=== PATIENT | female | born 1990 | race Caucasian/White ===

== ENCOUNTER 2019-04-01 02:03 | Day surgery (SDC) | payer OTHER, SELFPAY ==
[2019-03-31 12:27] VITALS: BMI 33.0
[2019-04-01 10:20] VITALS: BP 114/60; PULSE 71; RESP 16; TEMP 36.4; O2SAT 100; BMI 32.5
[2019-04-01] MEDS: LACTATED RINGERS 1,000 ML 150 ML IV CONT (10:33)
--- NOTE | 2019-04-01 10:41 | WPDANESEPPF ---
Anes - Initial Pre Proc Eval Procedure: Operation Date: 04/01/19 10:30 Proposed Procedures p Screening Colonoscopy - Norman Garrido MD Date/Time: 04/01/19 10:41 Surgeon: Norman Garrido MD Pre Op Diagnosis: Fam Hx Colon Ca Patient Data Age: 28 Gender: F Height: 5 ft 5 in Weight: 88.9 kg Last Vital Signs Temp 36.4 C L 04/01/19 10:20 Pulse 71 04/01/19 10:20 Resp 16 04/01/19 10:20 BP 114/60 04/01/19 10:20 Pulse Ox 100 04/01/19 10:20 Allergies Allergy/AdvReac Type Severity Reaction Status Date / Time No Known Allergies Allergy Unverified 04/01/19 10:18 Home Medications Medication Instructions Recorded Confirmed Type buspirone 10 mg tablet 10 mg PO BID #60 tablet 12/26/18 03/31/19 Rx clonazepam 0.5 mg tablet 0.5 mg PO BID PRN #60 tablet 12/26/18 03/31/19 Rx dextroamphetamine-amphetamine 20 20 mg PO BID #60 tablet 03/11/19 03/31/19 Rx mg tablet Patient hx anesthesia problems: none Family hx anesthesia problems: none PMFSH Past Medical History Medical History Smoker Family History Family History Father Carcinoma of colon Mother Hypertension Family history of type 2 diabetes mellitus Social History Social History Alcohol intake: current Anes - Eval Final PreProcedure Day of Procedure 04/01/19 10:41 Patient weight: obese Heart: regular rate and rhythm Lungs: clear to auscultation Airway: Mallampati scale class II Neurological: alert and oriented Last oral intake: >/= 8 hours ASA classification: II Emergent: no Anesthetic plan: proceed Anesthesia type and monitoring: general GIVS and standard monitoring Informed Consent: The patient's anesthetic plan and its attendant risks and benefits were discussed with the patient/family/POA. Questions were solicited and answers provided to the satisfaction of the patient/family/POA.
--- NOTE | 2019-04-01 11:14 | PM.HPGS ---
History of Present Illness History of Present Illness Consent: Risks, benefits, and alternatives have been discussed and questions answered. Patient agrees to proceed with procedure. Chief complaint: Fam Hx Colon Ca Narrative: Usha Orellana is a 28 year old female with colon polyps and father with colon cancer Review of Systems Constitutional: Constitutional: Denies headache(s) and Denies weakness Eyes: Eyes: Denies blurry vision ENT: Reports Normal hearing present, Denies headache(s) and Denies neck pain Cardiovascular: Cardiovascular: Denies chest pain and Denies dyspnea Respiratory: Respiratory: Denies dyspnea Gastrointestinal: Gastrointestinal: Reports no additional gastrointestinal complaints Genitourinary: Genitourinary: Denies dysuria Musculoskeletal: Musculoskeletal: Denies neck pain Integumentary/Breasts: Skin/Breast: Denies dry skin Neurologic: Reports Normal hearing present, Denies headache(s) and Denies weakness Psychiatric: Psychiatric: Denies anxiety Endocrine: Endocrine: Denies change in body appearance Hematologic/Lymphatic: Hematologic/Lymphatic: Denies easy bleeding Allergic/Immunologic: Allergic/Immunologic: Denies urticaria PMFSH Family History Family History Father Carcinoma of colon Mother Hypertension Family history of type 2 diabetes mellitus Social History Social History Alcohol intake: current Meds Home Medications and Allergies Home Medications Medication Instructions Recorded Confirmed Type buspirone 10 mg tablet 10 mg PO BID #60 tablet 12/26/18 03/31/19 Rx clonazepam 0.5 mg tablet 0.5 mg PO BID PRN #60 tablet 12/26/18 03/31/19 Rx dextroamphetamine-amphetamine 20 20 mg PO BID #60 tablet 03/11/19 03/31/19 Rx mg tablet Allergies Allergy/AdvReac Type Severity Reaction Status Date / Time No Known Allergies Allergy Unverified 04/01/19 10:18 Vital Signs Vital Signs - 24 hr 04/01/19 10:20 Temperature 97.5 F L Pulse Rate 71 Respiratory Rate 16 Blood Pressure 114/60 Pulse Oximetry 100 Exam Const: General: comfortable and no acute distress HENMT: General nose exam: Normal nares present Eyes: General: appearance normal, both eyes and all related structures Neck: Neck: no JVD Resp: Auscultation: clear to auscultation bilaterally Cardio: Rate: regular rate Rhythm: regular rhythm GI: Inspection: non-distended GI Palp: Yes Soft to palpation Skin: General skin exam: normal color Neuro: General: gait normal Speech: normal speech Extrem: General: normal to inspection Psych: Mental Status: mental status grossly normal Assessment and Plan Assessment and plan (1) Family history of colon cancer in father: Code(s): Z80.0 - Family history of malignant neoplasm of digestive organs Status: Acute Assessment and Plan: will proceed with colonoscopy
[2019-04-01 11:38] VITALS: BP 95/55; PULSE 79; RESP 24; O2SAT 100
[2019-04-01 11:48] VITALS: BP 113/75; PULSE 67; RESP 20; O2SAT 100
[2019-04-01 11:58] VITALS: BP 113/85; PULSE 72; RESP 16; O2SAT 100
== END 2019-04-01 12:12 | disposition home or self-care (01) ==
PROVIDERS: PCP Family Medicine; Visit Provider Internal Medicine Gastroenterology
PROC: 0DJD8ZZ Inspection of Lower Intestinal Tract, Via Natural or Artificial Opening Endoscopic (ICD-10-PCS; CPT 45378; principal; 2019-04-01 10:30)
DX: Z12.11 Encounter for screening for malignant neoplasm of colon (principal); K63.5 Polyp of colon; K64.8 Other hemorrhoids; Z80.0 Family history of malignant neoplasm of digestive organs; E66.9 Obesity, unspecified; Z68.32 Body mass index [BMI] 32.0-32.9, adult
CPT/HCPCS: 45385; 88305; J2704; J7120

== ENCOUNTER 2019-07-07 15:12 | Outpatient (CLI) | payer OTHER, SELFPAY ==
--- NOTE | ~2019-07-07 | US_ITS ---
EXAMINATION: US pelvic complete w TV DATE: 07/07/2019 15:52 INDICATION: Pelvic pain and pressure TECHNIQUE: Multiple transabdominal and endovaginal sonographic images of the pelvis were obtained. COMPARISON: None. FINDINGS: The uterus measures 7.1 x 4.0 x 5.4 cm. The endometrial complex measures 8 mm. The right ov margoth measures 3.7 x 2.3 x 2.7 cm. The left ovary measures 3.8 x 1.6 x 1.8 cm. There is normal vascular flow in the ovaries. There is no free fluid in the pelvis. IMPRESSION: 1. No sonographic correlate for the patient's symptoms. Reviewed, dictated and finalized at location A.
== END 2019-07-07 15:13 | disposition home or self-care (01) ==
LOC: ANHIMG 15:19
PROVIDERS: PCP Family Medicine; Visit Provider Obstetrics & Gynecology
DX: R10.2 Pelvic and perineal pain (principal)
CPT/HCPCS: 76830; 76856

== ENCOUNTER 2019-08-05 13:33 | Outpatient (CLI) | payer OTHER, SELFPAY | END 2019-08-05 13:34 | disposition home or self-care (01) | PROVIDERS: PCP Family Medicine; Visit Provider Physician Assistant Medical | DX: Z32.01 Encounter for pregnancy test, result positive (principal) | CPT/HCPCS: 36415; 84702 ==

== ENCOUNTER 2019-08-07 07:34 | Outpatient (CLI) | payer OTHER, SELFPAY | END 2019-08-07 07:35 | disposition home or self-care (01) | LOC: ANHLAB 07:36 | PROVIDERS: PCP Family Medicine; Visit Provider Family Medicine | DX: Z32.01 Encounter for pregnancy test, result positive (principal) | CPT/HCPCS: 36415; 84702 ==

== ENCOUNTER 2019-08-07 09:49 | Outpatient (CLI) | payer OTHER, SELFPAY ==
--- NOTE | ~2019-08-07 | US_ITS ---
EXAMINATION: US OB transvaginal DATE: 08/07/2019 10:49 INDICATION: Inappropriate change in quantitative hCG TECHNIQUE: Real-time pelvic transabdominal and transvaginal ultrasound was performed. COMPARISON: 07/07/2019 FINDINGS: The uterus measures 5.4 x 4.7 x 6.5 cm. The endometrial thickness measures 17 mm. There ou r to 4 mm fluid collections in the endometrial canal. Assuming these are gestational sacs, this corre lates with an estimated gestational age of 4 weeks and 6 day(s) (+/-) 3 day(s). The right ovary measures 2.6 x 1.9 x 2.0 cm. The left ovary measures 2.6 x 2.1 x 1.9 cm. There is nor mal vascular flow in the ovaries. There is no free fluid in the pelvis. IMPRESSION: 1. Two 4 mm fluid collections in the endometrial canal which could reflect twin . Assuming t hese are gestational sacs, this would correlate with a gestational age of 4 weeks and 6 day(s) (+/-) 3 day(s) and an estimated delivery date of 04/09/2020. Reviewed, dictated and finalized at location A. IMPRESSION: 1. Two 4 mm fluid collections in the endometrial canal which could reflect twin . Assuming these are gestational sacs, this would correlate with a ge stational age of 4 weeks and 6 day(s) (+/-) 3 day(s) and an estimated delivery date of 04/09/2020.
== END 2019-08-07 09:50 | disposition home or self-care (01) ==
LOC: ANHIMG 09:53
PROVIDERS: PCP Family Medicine; Visit Provider Physician Assistant Medical
DX: O02.81 Inappropriate change in quantitative human chorionic gonadotropin (hCG) in early pregnancy (principal)
CPT/HCPCS: 76817

== ENCOUNTER 2019-09-23 10:27 | Outpatient (CLI) | payer OTHER, SELFPAY ==
[2019-09-23 10:55] LABS: Hematocrit 36.4 % (37.0-47.0); Hemoglobin 12.5 g/dL (12.0-15.0); Mean Corpuscular HGB Conc 34.3 g/dl (32-36); Mean Corpuscular Hemoglobin 30.9 pg (26-34); Mean Corpuscular Volume 90.1 fl (80-100); Mean Platelet Volume 10.3 fl (7.4-10.4); Platelet Count Result 197 k/mm3 (150-375); Red Blood Count 4.04 M/mm3 (4.2-5.4)
[2019-09-23 11:21] LABS: Anion Gap 9.8 mmol/L (7-16); Blood Urea Nitrogen 3 mg/dL (7-17); Calcium 8.9 mg/dL (8.4-10.2); Carbon Dioxide 23 mmol/L (22-30); Chloride 106 mmol/L (98-107); Estimated Glomerular Filt Rate > 60; Glucose 82 mg/dL (65-105); Potassium 3.8 mmol/L (3.4-5.0); Sodium 135 mmol/L (137-145)
== END 2019-09-23 10:28 | disposition home or self-care (01) ==
LOC: ANHLAB 10:30
PROVIDERS: PCP Family Medicine; Visit Provider Nurse Practitioner Family
DX: R50.9 Fever, unspecified (principal)
CPT/HCPCS: 36415; 80048; 85027

== ENCOUNTER → 2019-12-11 08:58 | Outpatient (CLI) | payer OTHER, SELFPAY ==
--- NOTE | ~2019-12-11 | XR_ITS ---
EXAMINATION: XR ankle LT 2V, XR foot LT 2V DATE: 12/11/2019 09:21 INDICATION: Left ankle injury TECHNIQUE: 1. Anteroposterior and lateral view of the left ankle were obtained. 2. Dorsoplantar and lateral views of the left foot were obtained. COMPARISON: None. FINDINGS: Nondisplaced likely intra-articular fracture at the base of the left fifth metatarsal. Alignment steven ins essentially anatomic. No other fractures identified. Moderate osteoarthritis at the first metatar sophalangeal joint with prominent dorsal osteophyte at the head of the metatarsal as well as a loose body at the dorsal side of the joint space which could result in hallux rigidus. Remaining joint spac es appear relatively preserved. Soft tissue swelling about the lateral foot and ankle. Additional sof t tissue swelling about the first metatarsophalangeal joint. Left ankle joint effusion is present. IMPRESSION: 1. Nondisplaced likely intraarticular fracture at the base of the left fifth metatarsal. 2. Prominent left ankle joint effusion. 3. Moderate first metatarsophalangeal osteoarthritis with potential hallux rigidus. Reviewed, dictated and finalized at location A. IMPRESSION: 1. Nondisplaced likely intraarticular fracture at the base of the left fifth me tatarsal. 2. Prominent left ankle joint effusion. 3. Moderate first metatarsophalangeal osteoarthritis with potential hallux rigi dus.
== END ==
PROVIDERS: PCP Family Medicine; Visit Provider Family Medicine
DX: S92.355A Nondisplaced fracture of fifth metatarsal bone, left foot, initial encounter for closed fracture (principal); X58.XXXA Exposure to other specified factors, initial encounter; M25.472 Effusion, left ankle
CPT/HCPCS: 73600; 73620

== ENCOUNTER 2019-12-29 10:55 | Outpatient (CLI) | payer OTHER, SELFPAY ==
--- NOTE | ~2019-12-29 | US_ITS ---
EXAMINATION: US venous doppler [facility] EXAM DATE: 12/29/2019 12:31 INDICATION: Left leg pain. TECHNIQUE: Multiple grayscale, color flow and Doppler images of the left lower extremity deep venous system were obtained and reviewed. There is no prior study for comparison. FINDINGS: The left common femoral, femoral and profunda veins demonstrate normal color flow, respirat ory variation, augmentation and compressibility. Compressibility, color flow confirmed within the le ft popliteal, posterior tibial, peroneal, and greater saphenous veins. IMPRESSION: No left lower extremity deep venous thrombosis. Reviewed, dictated and finalized at location A. BOILER
== END 2019-12-29 10:56 | disposition home or self-care (01) ==
PROVIDERS: PCP Family Medicine; Visit Provider Family Medicine
DX: M79.89 Other specified soft tissue disorders (principal)
CPT/HCPCS: 93971

== ENCOUNTER 2020-01-20 09:38 | Outpatient (CLI) | payer OTHER, SELFPAY ==
[2020-01-20 11:43] LABS: Basophils Percent Auto 0.3 % (0.2-1.2); Eosinophils Absolute Auto 0.1 K/mm3 (0-0.3); Hematocrit 30.1 % (37.0-47.0); Hemoglobin 10.1 g/dL (12.0-15.0); Immature Granulocyte Absolute 0.09 K/mm3 (0.00-0.031); Lymphocytes Absolute Auto 1.52 K/mm3 (0.9-3.2); Lymphocytes Percent Auto 16.6 % (18.3-44.2); Mean Corpuscular HGB Conc 33.6 g/dl (32-36); Mean Corpuscular Hemoglobin 30.1 pg (26-34); Mean Corpuscular Volume 89.9 fl (80-100); Mean Platelet Volume 10.5 fl (7.4-10.4); Monocytes Absolute Auto 0.5 K/mm3 (0.1-0.6); Monocytes Percent Auto 4.9 % (2.6-8.5); Neutrophils Percent Auto 76.2 % (45.5-73.1); Platelet Count Result 172 k/mm3 (150-375); Red Blood Count 3.35 M/mm3 (4.2-5.4); White Blood Count 9.2 K/mm3 (4.5-10.0)
[2020-01-20 11:56] LABS: Glucose 1 Hour PP 50gm Dose 66 mg/dL
[2020-01-20 12:35] LABS: HIV 1/2 Ab P24 Ag Result Negative (Negative)
[2020-01-21 07:46] LABS: Rapid Plasma Reagin Non-Reactive (NonReactive)
== END 2020-01-20 09:39 | disposition home or self-care (01) ==
PROVIDERS: PCP Family Medicine
DX: Z3A.28 28 weeks gestation of pregnancy (principal)
CPT/HCPCS: 36415; 82947; 85025; 85027; 86592; 86703; G0432

== ENCOUNTER 2020-03-24 10:36 | Outpatient (CLI) | payer OTHER, SELFPAY ==
[2020-03-24 11:06] LABS: Basophils Percent Auto 0.2 % (0.2-1.2); Eosinophils Absolute Auto 0.1 K/mm3 (0-0.3); Eosinophils Percent Auto 0.7 % (0-4.4); Hematocrit 35.3 % (37.0-47.0); Hemoglobin 11.6 g/dL (12.0-15.0); Immature Granulocyte Absolute 0.07 K/mm3 (0.00-0.031); Immature Granulocyte Percent A 0.7 % (0-0.5); Lymphocytes Absolute Auto 1.47 K/mm3 (0.9-3.2); Lymphocytes Percent Auto 15.6 % (18.3-44.2); Mean Corpuscular HGB Conc 32.9 g/dl (32-36); Mean Corpuscular Hemoglobin 29.9 pg (26-34); Mean Platelet Volume 11.2 fl (7.4-10.4); Monocytes Absolute Auto 0.3 K/mm3 (0.1-0.6); Monocytes Percent Auto 3.4 % (2.6-8.5); Neutrophils Absolute Auto 7.5 K/mm3 (1.3-6.7); Neutrophils Percent Auto 79.4 % (45.5-73.1); Platelet Count Result 169 k/mm3 (150-375); Red Blood Count 3.88 M/mm3 (4.2-5.4); Red Cell Distribution Width 13.8 % (11.5-14.5); White Blood Count 9.4 K/mm3 (4.5-10.0)
[2020-03-24 11:19] LABS: Anion Gap 5 mmol/L (8-16); Blood Urea Nitrogen 4 mg/dL (7-17); Calcium 8.1 mg/dL (8.4-10.2); Carbon Dioxide 22 mmol/L (22-30); Chloride 110 mmol/L (98-107); Estimated Glomerular Filt Rate > 60; Glucose 111 mg/dL (65-105); Potassium 3.9 mmol/L (3.4-5.0); Sodium 137 mmol/L (137-145)
== END 2020-03-24 10:37 | disposition home or self-care (01) ==
PROVIDERS: PCP Family Medicine; Visit Provider Physician Assistant Medical
DX: O12.03 Gestational edema, third trimester (principal); Z3A.39 39 weeks gestation of pregnancy
CPT/HCPCS: 36415; 80048; 85025

== ENCOUNTER 2020-09-28 12:02 | Emergency (ER) | payer SELFPAY ==
[2020-09-28 12:22] VITALS: BP 98/59; PULSE 72; RESP 20; TEMP 36.2; O2SAT 98
[2020-09-28 12:40] LABS: Basophils Percent Auto 0.2 % (0.2-1.2); Eosinophils Absolute Auto 0.1 K/mm3 (0-0.3); Eosinophils Percent Auto 0.5 % (0-4.4); Hematocrit 41.4 % (37.0-47.0); Hemoglobin 13.6 g/dL (12.0-15.0); Immature Granulocyte Absolute 0.08 K/mm3 (0.00-0.031); Immature Granulocyte Percent A 0.7 % (0-0.5); Lymphocytes Percent Auto 13.4 % (18.3-44.2); Mean Corpuscular HGB Conc 32.9 g/dl (32-36); Mean Corpuscular Hemoglobin 29.4 pg (26-34); Mean Corpuscular Volume 89.4 fl (80-100); Mean Platelet Volume 10.5 fl (7.4-10.4); Monocytes Absolute Auto 0.3 K/mm3 (0.1-0.6); Monocytes Percent Auto 2.3 % (2.6-8.5); Neutrophils Absolute Auto 9.9 K/mm3 (1.3-6.7); Neutrophils Percent Auto 82.9 % (45.5-73.1); Platelet Count Result 244 k/mm3 (150-375); Red Blood Count 4.63 M/mm3 (4.2-5.4); Red Cell Distribution Width 12.7 % (11.5-14.5)
[2020-09-28 12:50] LABS: Anion Gap 8 mmol/L (8-16); Blood Urea Nitrogen 11 mg/dL (7-17); Carbon Dioxide 21 mmol/L (22-30); Chloride 110 mmol/L (98-107); Estimated CRCL calculation 160 ml/min; Estimated Glomerular Filt Rate > 60; Glucose 109 mg/dL (65-110); Potassium 3.7 mmol/L (3.4-5.0); Sodium 139 mmol/L (137-145)
--- NOTE | 2020-09-28 12:53 | PC.NURSE ---
Pt to intake crying, states I can't breathe, the pain is so bad, I'm going to throw up, I'm going to pass out . Pt assisted to 2nd triage bay. Pulse oximetry 98-99% room air. Note pt drinking water, told to not drink until seen by PMD. Offered wheelchair, and pt refuses. Explained that the rooms are busy now but that there are some discharges coming up and we will get her back as soon as possible.
[2020-09-28 12:57] VITALS: BP 112/51; PULSE 76; RESP 18; TEMP 35.8; O2SAT 100
--- NOTE | 2020-09-28 12:57 | PC.NURSE ---
Pt noted to be walking unassisted out of doors.
--- NOTE | 2020-09-28 13:03 | PC.NURSE ---
Pt's mother comes to intake, states do you know how much longer it's going to be? She can't breathe, she's having horrible pain! . Explained that I just had her daughter into triage and retook her vital signs. Explained that two ambulances just came in and that there are some discharges, and that a room will be available soon, and her daughter is one of the next patient's to go to a treatment room. Pt's mother states this is ridiculous! I freaking WORK at this hospital . Apologized for the wait. Mother leaves the facility.
== END 2020-09-28 13:03 | disposition left against medical advice (07) ==
PROVIDERS: Emergency Provider Family Medicine
DX: R10.9 Unspecified abdominal pain (principal)
CPT/HCPCS: 36415; 80048; 85025; 99199

== ENCOUNTER 2022-04-24 10:29 | Outpatient (CLI) | payer OTHER, SELFPAY ==
[2022-04-24 11:03] LABS: Basophils Percent Auto 0.5 % (0.2-1.2); Eosinophils Absolute Auto 0.2 K/mm3 (0-0.3); Hematocrit 38.6 % (37.0-47.0); Hemoglobin 12.4 g/dL (12.0-15.0); Immature Granulocyte Absolute 0.04 K/mm3 (0.00-0.031); Immature Granulocyte Percent A 0.5 % (0-0.5); Lymphocytes Absolute Auto 2.55 K/mm3 (0.9-3.2); Lymphocytes Percent Auto 34.5 % (18.3-44.2); Mean Corpuscular HGB Conc 32.1 g/dl (32-36); Mean Corpuscular Hemoglobin 28.1 pg (26-34); Mean Corpuscular Volume 87.3 fl (80-100); Mean Platelet Volume 10.1 fl (7.4-10.4); Monocytes Absolute Auto 0.3 K/mm3 (0.1-0.6); Monocytes Percent Auto 4.1 % (2.6-8.5); Neutrophils Absolute Auto 4.3 K/mm3 (1.3-6.7); Neutrophils Percent Auto 58.4 % (45.5-73.1); Platelet Count Result 319 k/mm3 (150-375); Red Blood Count 4.42 M/mm3 (4.2-5.4); Red Cell Distribution Width 13.1 % (11.5-14.5); White Blood Count 7.4 K/mm3 (4.5-10.0)
[2022-04-24 11:11] LABS: Anion Gap 6 mmol/L (8-16); Blood Urea Nitrogen 9 mg/dL (7-17); Calcium 8.6 mg/dL (8.4-10.2); Carbon Dioxide 24 mmol/L (22-30); Chloride 105 mmol/L (98-107); Cholesterol 162 mg/dL (0-200); Estimated Glomerular Filt Rate > 60; Glucose 90 mg/dL (65-110); HDL Direct 24 mg/dL; Potassium 3.8 mmol/L (3.4-5.0); Sodium 135 mmol/L (137-145); Triglycerides 166 mg/dL (<150)
[2022-04-24 11:22] LABS: LDL Cholesterol Direct 89 mg/dL
== END 2022-04-24 10:30 | disposition home or self-care (01) ==
PROVIDERS: PCP Family Medicine; Visit Provider Physician Assistant Medical
DX: M79.89 Other specified soft tissue disorders (principal); R20.0 Anesthesia of skin; R63.5 Abnormal weight gain; Z13.1 Encounter for screening for diabetes mellitus; Z13.220 Encounter for screening for lipoid disorders
CPT/HCPCS: 36415; 80048; 80061; 84443; 85025

== ENCOUNTER 2022-12-24 16:00 | Outpatient (CLI) | payer OTHER, SELFPAY ==
--- NOTE | ~2022-12-24 | XR_ITS ---
Left foot Technique: AP, oblique, and lateral views were obtained. Clinical History: Pain Findings: No acute fracture or dislocation is seen. There is advanced degenerative change at the firs t metatarsophalangeal joint, with prominent dorsal spurring. Soft tissues are unremarkable. Impression: Advanced degenerative change of the first metatarsophalangeal joint, as detailed above. Reviewed, dictated and finalized at location M. RANCE S[employer]CING MANAGER Impression: Advanced degenerative change of the first metatarsophalangeal joint, as detaile d above.
== END 2022-12-24 16:01 | disposition home or self-care (01) ==
LOC: ANHIMG 16:05
PROVIDERS: PCP Family Medicine; Visit Provider Physician Assistant Medical
DX: M19.072 Primary osteoarthritis, left ankle and foot (principal)
CPT/HCPCS: 73620

== ENCOUNTER 2023-06-24 08:31 | Outpatient (CLI) | payer OTHER, SELFPAY ==
--- NOTE | ~2023-06-24 | XR_ITS ---
EXAMINATION: XR hip RT 2V w AP pelvis DATE: 06/24/2023 08:52 INDICATION: Right hip pain TECHNIQUE: Anteroposterior view of the pelvis and anteroposterior and frog-leg lateral views of the r ight hip were obtained. COMPARISON: None. FINDINGS: Bone alignment is normal. No fracture. Bilateral hip joint spaces are normal. There is subarticular s clerosis along portions of the bilateral sacroiliac joints suggestive of bilateral sacroiliac disease which could be degenerative or inflammatory in etiology. There is also osteitis pubis. Soft tissues are unremarkable. IMPRESSION: 1. Osteitis pubis and mild bilateral sacroiliitis which could be degenerative or inflammatory in etio logy. Reviewed, dictated and finalized at location A. IMPRESSION: 1. Osteitis pubis and mild bilateral sacroiliitis which could be degenerative o r inflammatory in etiology.
[2023-06-24 08:54] LABS: Basophils Percent Auto 0.3 % (0.2-1.2); Eosinophils Absolute Auto 0.1 K/mm3 (0-0.3); Eosinophils Percent Auto 1.6 % (0-4.4); Hematocrit 39.3 % (37.0-47.0); Hemoglobin 12.9 g/dL (12.0-15.0); Immature Granulocyte Absolute 0.02 K/mm3 (0.00-0.031); Immature Granulocyte Percent A 0.3 % (0-0.5); Lymphocytes Absolute Auto 1.97 K/mm3 (0.9-3.2); Lymphocytes Percent Auto 28.6 % (18.3-44.2); Mean Corpuscular HGB Conc 32.8 g/dl (32-36); Mean Corpuscular Hemoglobin 28.9 pg (26-34); Mean Corpuscular Volume 88.1 fl (80-100); Mean Platelet Volume 10.5 fl (7.4-10.4); Monocytes Absolute Auto 0.4 K/mm3 (0.1-0.6); Monocytes Percent Auto 5.4 % (2.6-8.5); Neutrophils Absolute Auto 4.4 K/mm3 (1.3-6.7); Neutrophils Percent Auto 63.8 % (45.5-73.1); Platelet Count Result 243 k/mm3 (150-375); Red Blood Count 4.46 M/mm3 (4.2-5.4); Red Cell Distribution Width 13.2 % (11.5-14.5); White Blood Count 6.9 K/mm3 (4.5-10.0)
[2023-06-24 09:11] LABS: Alanine Aminotransferase 13 U/L (6-35); Albumin Level 4.1 g/dL (3.5-5.1); Alkaline Phosphatase 51 U/L (38-126); Anion Gap 5 mmol/L (4-12); Aspartate Amino Transferase 18 U/L (14-36); Bilirubin,Total 0.7 mg/dL (0.2-1.3); Blood Urea Nitrogen 11 mg/dL (7-17); Carbon Dioxide 25 mmol/L (22-30); Chloride 109 mmol/L (98-107); Cholesterol 149 mg/dL (0-200); Estimated Glomerular Filt Rate > 60; Glucose 92 mg/dL (65-110); HDL Direct 34 mg/dL; Potassium 3.8 mmol/L (3.4-5.0); Sodium 139 mmol/L (137-145); Triglycerides 98 mg/dL (<150)
[2023-06-24 09:23] LABS: LDL Cholesterol Direct 95 mg/dL
== END 2023-06-24 08:32 | disposition home or self-care (01) ==
LOC: ANHLAB 08:33
PROVIDERS: PCP Family Medicine; Visit Provider Physician Assistant Medical
DX: M46.1 Sacroiliitis, not elsewhere classified (principal); M86.8X5 Other osteomyelitis, thigh; E78.5 Hyperlipidemia, unspecified; E87.1 Hypo-osmolality and hyponatremia; R63.5 Abnormal weight gain; Z13.1 Encounter for screening for diabetes mellitus; Z13.220 Encounter for screening for lipoid disorders; Z80.0 Family history of malignant neoplasm of digestive organs
CPT/HCPCS: 36415; 73502; 80053; 80061; 85025

== ENCOUNTER 2023-09-25 00:34 | Day surgery (SDC) | payer OTHER, SELFPAY ==
--- NOTE | 2023-09-20 14:34 | SUR.PREOP ---
Report to the Outpatient Waiting Room, entrance under the green pavilion located off [facility], at time 0830 on date 09/25/23. Planned Procedure Time: 1030. Time changes happen often and if your time is changed the preop area will call you the afternoon before. - You and your visitor will be asked to self-screen and do not enter if you have any COVID symptoms. - A mask is optional within the hospital at this time. Patients may have clear liquids (water, carbonated beverages, clear teas, apple juice) until 3 hours prior to surgery with a maximum of 20 ounces. - No food from midnight until time of surgery - Infants may have breast milk until 4 hours before surgery, infant formula 6 hours prior to surgery. - Children will be allowed to drink immediately following surgery. If applicable, please bring a bottle or sippy cup to assist with drinking. Juice, water, soda, and popsicles are readily available. For infants on formula, please bring formula the day of surgery. Pacifiers are allowed. Take the following medications with a SIP of water the morning of surgery: TRAMADOL DO NOT STOP ANY OF YOUR OTHER PRESCRIPTION MEDICATIONS PRIOR TO SURGERY ?EXCEPT THE FOLLOWING Medications to discontinue per physician N/A Date to take last dose Please no make-up, nail syriac, hairspray, perfume, deodorant, or body powder the day of surgery. No jewelry (including any body piercings) or valuables the day of surgery, leave them at home. Please take a shower or bath the night before, or the morning of, surgery with an antibacterial soap. Wear comfortable, loose fitting clothing. Children are encouraged to wear pajamas. - Jewelry must be removed prior to entering the operating room. Rings and piercings that are not removed may be cut off. - The hospital will not accept responsibility for valuables. - Please leave all valuables, including medications, at home the day of surgery. If you are going home after surgery, a licensed log driver must drive you home. - NO public transportation without another adult if you receive anesthesia. - We recommend that an adult stay with you for 24 hours following discharge. - We also recommend that you do not drive, make important decision, drink alcoholic beverages, or take any drugs that were not prescribed by your health care provider for at least 24 hours after your discharge time. For Pediatric surgeries, we recommend two adults accompany the child home. Follow any additional instructions given to you from your surgeon. If you or anyone in your household have experienced Covid symptoms in the past week, please notify your surgeon or the nurse liaison at the phone number below for possible testing. Telephone instructions given to BARBARA CELESTIN and asked if any additional questions and then verbalized understanding. Patient advised to call surgeon office or pre surgery nurse liaison [phone] if any additional questions.
[2023-09-20 14:43] VITALS: BMI 36.6
[2023-09-25] VITALS (12 sets, daily range): BP systolic 105–120; BP diastolic 50–78; PULSE 53–100; RESP 10–24; TEMP 35.8–36.1; O2SAT 94–100
[2023-09-25] MEDS: ACETAMINOPHEN 500 MG TABLET 1000 MG PO (06:40)
[2023-09-25] MEDS: LACTATED RINGERS 1,000 ML 30 ML IV CONT ×2 (06:45→08:21)
[2023-09-25] MEDS: KETOROLAC 15 MG/ML VIAL (*BKC) IV PUSH (06:51)
--- NOTE | 2023-09-25 07:07 | WPDANESEPPF ---
Anes - Initial Pre Proc Eval Procedure: Operation Date: 09/25/23 07:30 Proposed Procedures p Laparoscopic Bilateral Salpingectomy - Tevin Bernal MD Date/Time: 09/25/23 07:07 Surgeon: Tevin Bernal MD Pre Op Diagnosis: sterilization Patient Data Age: 32 Gender: F Height: 1.65 m Weight: 97.2 kg Allergies Allergy/AdvReac Type Severity Reaction Status Date / Time No Known Allergies Allergy Verified 09/25/23 06:38 Home Medications Medication Instructions Recorded Confirmed Type tramadol 50 mg tablet 50 mg PO BID PRN pain #30 tabs 09/16/23 09/25/23 Rx dextroamphetamine-amphetamine 10 20 mg PO BID 09/25/23 09/25/23 History mg tablet (Adderall) Patient hx anesthesia problems: none Family hx anesthesia problems: none Results Review: All pre-operative results and documents have been reviewed as part of the pre-operative evaluation. PMFSH Past Medical History Medical History Abnormal urine Abnormal weight gain Anxiety and depression Attention deficit disorder Body mass index [BMI] 39.0-39.9, adult (05/13/15) Cough Cysts of left eye, unspecified eyelid Dietary counseling and surveillance (02/09/15) Encounter for screening for diseases of the blood and blood-forming organs and certain disorders involving the immune mechanism Encounter for screening for other metabolic disorders Family history of colon cancer in father Generalized abdominal pain Glucose found in urine on examination Left leg swelling Major depressive disorder, single episode, unspecified Milia of eyelids of both eyes Nausea Recurrent UTI Right upper quadrant pain Routine physical examination Screening for lipid disorders Screening for thyroid disorder Smoker Family History Family History Father Carcinoma of colon Mother Hypertension Family history of type 2 diabetes mellitus Sibling No problems noted. Social History Social History Smoking packs per day: 0.5 Smoking cigarettes per day: 10.0 Years smoked: 6 Smoking pack-years: 3.00 Smoking status: Current some day smoker Tobacco type: cigarettes Second hand tobacco smoke exposure: Yes Alcohol intake: current Substance use: never Substance use type: does not use Do You Feel Safe in your Home?: Yes Lack of Transportation: No Lack of Food: Never True Concerned About Future Housing: No Difficulty Paying Gas/Electric Bills: No Difficulty Paying for Meds: No Currently Unemployed: No Education: Trade/Vocational Certificate Difficulty w/ Childcare or Family Care: No Living arrangements: with family Occupation/Education: occupation 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 Gender identity (if verbalized by the patient): Female Spiritual care concerns: No Anes - Eval Final PreProcedure Day of Procedure 09/25/23 07:07 Patient weight: obese Heart: regular rate and rhythm Lungs: clear to auscultation Airway: Mallampati scale class II and special considerations (right incisor loose) Neurological: alert and oriented Last oral intake: >/= 8 hours ASA classification: II Emergent: no Anesthetic plan: proceed Anesthesia type and monitoring: general ETT and standard monitoring Results Review: All pre-operative results and documents have been reviewed as part of the pre-operative evaluation. Informed Consent: The patient's anesthetic plan and its attendant risks and benefits were discussed with the patient/family/POA. Questions were solicited and answers provided to the satisfaction of the patient/family/POA.
--- NOTE | 2023-09-25 07:17 | WPDHPUPDATE1 ---
History and Physical Update Update Date/Time: 09/25/23 07:17 History and Physical has been reviewed, including an updated exam of the patient. There are NO changes in the patient's condition. Risks, benefits, and alternatives have been discussed and questions answered. Patient agrees to proceed with procedure.
--- NOTE | 2023-09-25 07:20 | PM.IMHP ---
H&P: HPI History of Present Illness Date/Time: 09/25/23 07:20 Chief Complaint: Unwanted fertility Narrative: 32-year-old multiparous female who desires female sterilization. Agreed to perform laparoscopic bilateral salpingectomy. The patient understands the details of the procedure. The procedure has been explained in detail. She understands the risks. She understands that injuries may occur that result in hospitalization, more surgery, and severe illness. She understands risk of hemorrhage and infection. She denies any chest pain or shortness of breath. She denies any nausea, vomiting, fever, chills. Review of Systems Review of Systems: All systems reviewed & are unremarkable except as noted in HPI and below Constitutional: Constitutional: Denies chills, Denies fatigue, Denies fever(s) and Denies weakness Eyes: Eyes: Denies blurry vision, Denies change in vision, Denies loss of peripheral vision, Denies loss of vision, Denies other visual disturbances and Denies eye pain ENT: Denies vertigo, Denies dizziness, Denies hearing loss, Denies mouth pain, Denies nasal obstruction, Denies neck mass and Denies neck pain Cardiovascular: Cardiovascular: Denies chest pain, Denies diaphoresis, Denies syncope, Denies leg edema and Denies dyspnea Respiratory: Respiratory: Denies chest congestion, Denies cough, Denies hemoptysis, Denies dyspnea and Denies wheezing Gastrointestinal: Gastrointestinal: Denies abdominal pain, Denies constipation, Denies diarrhea, Denies nausea and Denies vomiting Genitourinary: Genitourinary: Denies hematuria, Denies change in libido, Denies nocturia, Denies genital lesions, Denies flank pain and Denies urinary urgency Musculoskeletal: Musculoskeletal: Denies abnormal gait, Denies back pain, Denies myalgias, Denies arthralgias, Denies joint swelling, Denies muscle weakness and Denies neck pain Integumentary/Breasts: Skin/Breast: Denies swelling, Denies breast pain, Denies breast mass, Denies dry skin, Denies nipple discharge, Denies unusual bruising and Denies jaundice Neurologic: Denies Neuro-related abnormal movements, Denies Abnormal speech present, Denies abnormal gait, Denies behavioral changes, Denies confusion, Denies vertigo, Denies dizziness, Denies syncope, Denies loss of vision, Denies memory loss, Denies convulsions and Denies weakness Psychiatric: Psychiatric: Denies abnormal sleep pattern, Denies behavioral changes, Denies change in libido, Denies confusion, Denies depression, Denies anhedonia and Denies memory loss Endocrine: Endocrine: Reports no additional endocrine complaints, Denies change in libido and Denies fatigue Hematologic/Lymphatic: Hematologic/Lymphatic: Reports no additional hematologic/lymphatic complaints Allergic/Immunologic: Allergic/Immunologic: Reports no additional allergic/immunologic complaints and Denies wheezing PMFSH Past Medical History Medical History Abnormal urine Abnormal weight gain Anxiety and depression Attention deficit disorder Body mass index [BMI] 39.0-39.9, adult (05/13/15) Cough Cysts of left eye, unspecified eyelid Dietary counseling and surveillance (02/09/15) Encounter for screening for diseases of the blood and blood-forming organs and certain disorders involving the immune mechanism Encounter for screening for other metabolic disorders Family history of colon cancer in father Generalized abdominal pain Glucose found in urine on examination Left leg swelling Major depressive disorder, single episode, unspecified Milia of eyelids of both eyes Nausea Recurrent UTI Right upper quadrant pain Routine physical examination Screening for lipid disorders Screening for thyroid disorder Smoker Family History Family History Father Carcinoma of colon Mother Hypertension Family history of type 2 diabetes mellitus Sibling No problems noted. Social History Social History (
--- NOTE | 2023-09-25 08:27 | W.PM.PROC2 ---
Procedure Note - Detailed Date of Procedure 09/25/23 Pre-op Diagnosis sterilization Post-op Diagnosis Same Procedure Performed Laparoscopic bilateral salpingectomy Surgeon Tevin Bernal MD Anesthesia General Indications Unwanted fertility Findings Normal pelvic anatomy Description of Procedure The patient was taken the operating room. She was prepped and draped in the dorsal lithotomy position after induction of general anesthesia. A 5 mm skin incision was made in the left upper quadrant of the abdominal skin. A 5 mm trocar was inserted the intra-abdominal cavity under direct visualization of the scope. Pneumoperitoneum was achieved. A 5 mm trocar was inserted in the left lower quadrant identical fashion. A 5 mm infraumbilical trocar was inserted in identical fashion as well. The bilateral fallopian tubes were removed. This was done by using a LigaSure cautery. The mesosalpinx adjacent to the tube was cauterized transected with LigaSure. This was initiated in the area the ovary and in a stepwise fashion moved medially to the area of the cornu of the uterus. Once there the fallopian tube was cauterized and transected. This was done in identical fashion on each side. The fallopian tubes were taken out through the left lower quadrant trocar site. The pneumoperitoneum was reduced. The trocars removed. The skin was closed with subcuticular 4 Monocryl and covered with Dermabond. She was taken to cover stable condition. Sponge lap and needle counts were correct x2. Estimated Blood Loss 5 Drains No Packing No Pathology Yes Complications No immediate complications Condition Stable Disposition PACU
[2023-09-25] MEDS: fentaNYL CITRATE INJ (*CRX) 100 MCG/2 ML VIAL 25 MCG IV PUSH ×8 (08:34→09:18)
[2023-09-25 08:44] LABS: BEDSIDEPREGUCG Negative
[2023-09-25] MEDS: HYDROmorphone HCL INJ (*CRX) 1 MG/ML SYR IV PUSH ×2 (09:33→09:44)
[2023-09-25] MEDS: ONDANSETRON INJ 4 MG/2 ML VIAL IV PUSH (10:05)
== END 2023-09-25 11:25 | disposition home or self-care (01) ==
PROVIDERS: PCP Family Medicine; Visit Provider Obstetrics & Gynecology
PROC: (CPT 49320; principal; 2023-09-25 07:30)
DX: Z30.2 Encounter for sterilization (principal); F98.8 Other specified behavioral and emotional disorders with onset usually occurring in childhood and adolescence; F41.8 Other specified anxiety disorders; F17.210 Nicotine dependence, cigarettes, uncomplicated; E66.9 Obesity, unspecified; Z68.35 Body mass index [BMI] 35.0-35.9, adult
CPT/HCPCS: 58661; 88302; A9270; J0330; J1100; J1170; J1885; J2250; J2405; J2704; J3010; J7120

== ENCOUNTER 2023-12-12 12:08 | Outpatient (CLI) | payer OTHER, SELFPAY ==
[2023-12-12 12:31] LABS: Basophils Percent Auto 0.3 % (0.2-1.2); Eosinophils Absolute Auto 0.1 K/mm3 (0-0.3); Eosinophils Percent Auto 1.3 % (0-4.4); Hematocrit 38.9 % (37.0-47.0); Hemoglobin 12.8 g/dL (12.0-15.0); Immature Granulocyte Absolute 0.02 K/mm3 (0.00-0.031); Immature Granulocyte Percent A 0.3 % (0-0.5); Lymphocytes Absolute Auto 1.96 K/mm3 (0.9-3.2); Lymphocytes Percent Auto 31.9 % (18.3-44.2); Mean Corpuscular HGB Conc 32.9 g/dl (32-36); Mean Corpuscular Hemoglobin 30.2 pg (26-34); Mean Corpuscular Volume 91.7 fl (80-100); Mean Platelet Volume 10.8 fl (7.4-10.4); Monocytes Absolute Auto 0.3 K/mm3 (0.1-0.6); Monocytes Percent Auto 4.2 % (2.6-8.5); Neutrophils Absolute Auto 3.8 K/mm3 (1.3-6.7); Platelet Count Result 233 k/mm3 (150-375); Red Blood Count 4.24 M/mm3 (4.2-5.4); Red Cell Distribution Width 13.1 % (11.5-14.5); White Blood Count 6.2 K/mm3 (4.5-10.0)
[2023-12-12 12:45] LABS: Alanine Aminotransferase 15 U/L (6-35); Albumin Level 4.2 g/dL (3.5-5.1); Alkaline Phosphatase 52 U/L (38-126); Anion Gap 6 mmol/L (4-12); Aspartate Amino Transferase 20 U/L (14-36); Bilirubin,Total 0.5 mg/dL (0.2-1.3); Blood Urea Nitrogen 7 mg/dL (7-17); CRP < 0.5 mg/dL (<1.0); Carbon Dioxide 26 mmol/L (22-30); Chloride 104 mmol/L (98-107); Estimated Glomerular Filt Rate > 60; Glucose 86 mg/dL (65-110); Potassium 3.9 mmol/L (3.4-5.0); Sodium 136 mmol/L (137-145)
[2023-12-12 13:12] LABS: Erythrocyte Sedimentation Rate 21 mm/hr (0-20)
[2023-12-12 14:21] LABS: Rapid Plasma Reagin Non-Reactive (NonReactive)
== END 2023-12-12 12:09 | disposition home or self-care (01) ==
LOC: ANHLAB 12:10
PROVIDERS: PCP Family Medicine; Visit Provider Physician Assistant Medical
DX: M46.1 Sacroiliitis, not elsewhere classified (principal); M25.551 Pain in right hip; G89.29 Other chronic pain
CPT/HCPCS: 36415; 80053; 85025; 85652; 86038; 86039; 86140; 86592

== ENCOUNTER 2024-04-13 12:01 | Emergency (ER) | payer OTHER, SELFPAY ==
[2024-04-13 12:08] VITALS: BP 117/61; PULSE 81; RESP 18; TEMP 36.6; O2SAT 100
--- NOTE | 2024-04-13 12:57 | ED.EAR ---
HPI - Ear Problem General Chief complaint: Ear Stated complaint: LT Ear Pain Time Seen by Provider: 04/13/24 13:05 Source: patient, RN notes reviewed and old records reviewed Mode of arrival: ambulatory Limitations: no limitations History of Present Illness HPI Narrative: 33-year-old female presents to the [facility] with complaints of left ear pain that started last week. Has been popping, has become increasingly clogged. States that she has been applying warm compresses, taking Zyrtec and ibuprofen and Tylenol. Denies any other symptoms. Related Data Allergies Allergy/AdvReac Type Severity Reaction Status Date / Time No Known Allergies Allergy Verified 04/13/24 13:04 Review of Systems Review of Systems: All systems reviewed & are unremarkable except as noted in HPI and below Constitutional: Constitutional: Reports no additional constitutional complaints ENT: Reports as per HPI and Reports otalgia Cardiovascular: Cardiovascular: Reports no additional cardiovascular complaints, Denies chest pain and Denies dyspnea Respiratory: Respiratory: Reports no additional respiratory complaints, Denies chest congestion, Denies cough and Denies dyspnea Musculoskeletal: Musculoskeletal: Reports no additional musculoskeletal complaints Integumentary/Breasts: Skin/Breast: Reports system reviewed and no additional complaints, except as docu PMFSH Past Medical History Medical History Abnormal urine Abnormal weight gain Anxiety and depression Attention deficit disorder Body mass index [BMI] 39.0-39.9, adult (05/13/15) Cough Cysts of left eye, unspecified eyelid Dietary counseling and surveillance (02/09/15) Encounter for screening for diseases of the blood and blood-forming organs and certain disorders involving the immune mechanism Encounter for screening for other metabolic disorders Generalized abdominal pain Glucose found in urine on examination Major depressive disorder, single episode, unspecified Milia of eyelids of both eyes Nausea Recurrent UTI Right upper quadrant pain Routine physical examination Screening for lipid disorders Screening for thyroid disorder Left leg swelling Family history of colon cancer in father Smoker Family History Family History Father Carcinoma of colon Mother Hypertension Family history of type 2 diabetes mellitus Sibling No problems noted. Social History Social History Smoking packs per day: 0.5 Smoking cigarettes per day: 10.0 Years smoked: 6 Smoking pack-years: 3.00 Smoking status: Current some day smoker Tobacco type: cigarettes Second hand tobacco smoke exposure: Yes Alcohol intake: current Substance use: never Substance use type: does not use Do You Feel Safe in your Home?: Yes Lack of Transportation: No Lack of Food: Never True Concerned About Future Housing: No Difficulty Paying Gas/Electric Bills: No Difficulty Paying for Meds: No Currently Unemployed: No Education: Trade/Vocational Certificate Difficulty w/ Childcare or Family Care: No Living arrangements: with family Occupation/Education: occupation 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 There is no relevant family history pertinent to the patient complaint. Exam Const: General: cooperative, healthy appearing, comfortable, no acute distress, well developed, alert and well nourished Nutritional Appearance: well nourished Orientation/consciousness: patient oriented x3 Limitations: no limitations HENMT: Head: normal to inspection Ears: mastoids normal, no periauricular adenopathy, Abnormal EAC present erythema on the left and edema on the left; no EA tenderness, no foreign body and no otic discharge and TM abnormal bulging on the left and erythematous on the left Mouth: Yes Normal oral and palatal mucosa present, Yes lip normal, Yes tongue normal and Yes moist mucous membranes Throat: posterior oropharynx normal, uvula midline and no uvular edema Eyes: General: appearance normal, both eyes and all related structures Alignment and Position: alignment normal Neck: Neck: normal visual inspection, full ROM, no lymphadenopathy and no meningeal signs Chest: Chest palpation & inspection: normal inspection of the chest Resp: Effort & Inspection: normal respiratory effort and able to speak in complete sentences Auscultation: clear to auscultation bilaterally, no crackles, no rales, no rhonchi and no wheezes Cardio: Rate: regular rate Skin: General skin exam: normal color and no rashes or lesions noted Neuro: General: patient oriented x3, gait normal, moves all extremities and no meningeal signs Cognition (Neuro): normal cognition Speech: normal speech Gait exam (Neuro): Normal gait present Extrem: General: normal to inspection, full ROM, capillary refill normal and normal gait Psych: Appearance: grossly normal and well kempt Mental Status: mental status grossly normal Speech and movement: Normal speech and movement present and Clear speech present Affect: normal affect Attitude: cooperative Course Course Level of Care: Express Care Visit Vital Signs Vital signs: Vital Signs Temperature 97.8 F 04/13/24 12:08 Pulse Rate 81 04/13/24 12:08 Respiratory Rate 18 04/13/24 12:08 Blood Pressure 117/61 04/13/24 12:08 Pulse Oximetry 100 04/13/24 12:08 Oxygen Delivery Room Air 04/13/24 12:08 Temperature 97.8 F 04/13/24 12:08 Pulse Rate 81 04/13/24 12:08 Respiratory Rate 18 04/13/24 12:08 Blood Pressure 117/61 04/13/24 12:08 Pulse Oximetry 100 04/13/24 12:08 Oxygen Delivery Room Air 04/13/24 12:08 Reviewed Medical Decision Making MDM Narrative Medical decision making narrative: Patient sitting comfortably in exam room. Nontoxic, vitals stable. Patient in no acute distress Patient presents for left ear discomfort. Erythema noted to the left TM. Patient is appropriate for outpatient treatment and follow-up Discharge instructions reviewed with patient, as well as provided in writing per nursing staff. The instructions also include specific and strict return/GO TO THE ER as well as f/u information. All questions have been answered, and the patient deny any further questions with discharge and discharge plan. Some parts of this dictation were generated by voice recognition software and may contain typographical and/or grammatical inaccuracies. Differential Diagnosis Differential Diagnosis: Otitis media, serous otitis, otitis externa, URI Medical Records Medical records reviewed: Yes I reviewed the external patient's medical records. Vital Signs Vital Signs: Vital Signs Temperature 97.8 F 04/13/24 12:08 Pulse Rate 81 04/13/24 12:08 Respiratory Rate 18 04/13/24 12:08 Blood Pressure 117/61 04/13/24 12:08 Pulse Oximetry 100 04/13/24 12:08 Oxygen Delivery Room Air 04/13/24 12:08 Temperature 97.8 F 04/13/24 12:08 Pulse Rate 81 04/13/24 12:08 Respiratory Rate 18 04/13/24 12:08 Blood Pressure 117/61 04/13/24 12:08 Pulse Oximetry 100 04/13/24 12:08 Oxygen Delivery Room Air 04/13/24 12:08 Reviewed Lab Data Lab results reviewed: Yes I reviewed the patient's lab results. Labs: Reviewed Critical Care Time Critical Care Time Critical Care Time: No Discharge Plan Discharge Clinical Impression: Acute left otitis media, Inflammation of left ear canal Patient Disposition: Home, Self-Care Condition: Stable Instructions: Antibiotic Form, Ear Infection (GEN) Additional Instructions: Take antibiotics as prescribed Do not put anything in your ears. Take Claritin or Zyrtec daily Use Flonase twice a day for 5 days then once daily Follow-up care For new or worsening symptoms go directly to the emergency Patient Language: Danish Prescriptions: New amoxicillin-pot clavulanate 875-125 mg tablet 1 tablet PO Q12H Qty: 20 0RF ciprofloxacin-dexamethasone 0.3-0.1 % drops,suspension 5 drp LEFT EAR Q12H 7 Days Qty: 7.5 0RF No Action dextroamphetamine-amphetamine [Adderall] 10 mg tablet 20 mg PO BID Qty: 90 0RF Rx Instructions: 2 tabs in morning and 1 tab in afternoon Follow-up/Referrals: Bradford Philippe MD [Primary Care Provider] - 1 Week Stand Alone Forms: Work/School Release IP Time of Disposition: 13:11
--- OUTSIDE RECORDS SUMMARY | 2024-04-13 13:46 | XMS_ITS | Data Portability ---
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 Patient will come back in a year unless there are new symptoms. Not available 07/01/2023 11:45:29 Plan of Treatment Reminders Order Date Submit Date Provider Last Modified By Organization Details Last Modified Time Details Appointments None record ed. Lab None record ed. Referral None record ed. Procedures None record ed. Surgeries None record ed. Imaging None record ed. Medication Orders None record ed. Patient TargetsNo targets recorded. Patient InstructionsNo instructions recorded. Reason for Referral None Reported. Results Created Date Observation Date Name Description Value Unit Range Abnormal Flag Note LastModifiedBy Organization Detail LastModifiedTime 07/01/1907/01/2023 IMAGE GUIDE D PAP AND HPV REGAR DLESS image guided Pap, HPV regardless of Pap result SEE RESULT S BELOW CASE REPOR T: Cytol ogy Gynec ologi daphney Repor t Case: [id number] Autho riasia g Provi nancy: Margarita Hernandez NP Colle cted: 06/30 1134 Order ing Locat ion: [place] [facility] Recei kamla: 07/01 0717 First Scree n: Stephen shields, Bibiana ret, CT Rescr een: Kaylyn Villa ay, CT Speci men: Scree jose Pap - Image d, Cervi x STATE MENT OF ADEQU ACY: Satis facto ry for evalu ation Trans forma tion zone compo nent prese nt Parti curry obscu ring blood prese nt ----- ----- ----- ----- ----- ----- ----- ----- ----- ----- ----- ----- ----- ----- ----- ----- ----- ---- FINAL DIAGN OSIS: Negat destini for Intra epith elial Lesangel rojas or Trixie stern (NIL) . Elect octavio ascencio d by Kaylyn Villa, CT on 2023 at 2:13 PM ----- ----- ----- ----- ----- ----- ----- ----- ----- ----- ----- ----- ----- ----- ----- ----- ----- ---- HPV RESUL TS: HPV mRNA E6/E7 : No HPV mRNA Detec jose NOTE: This high risk HPV mRNA assay detec ts fourt een high- risk HPV types (16, 18, 31, 33, 35, 39, 45, 51, 52, 56, 58, 59, 66, 68) witho ut diffe renti ation . COMME NT: This speci men was revie wed by a Cytot echno logis t and/o r Patho logis t (as indic ated in this repor t) after evalu ation using the Thinp rep Imagi ng Syste m. CLINI DAPHNEY INFOR MATIO N: Menst rual Statu s: LMP (if appli cable ): Clini daphney Histo ry/Pr eviou s Pap: Type of Neopl anne marie (if appli cable ): Signi fican t Clini daphney Findi ngs: Other Histo ry: Hormo beni (if appli cable ): PAP EDUCA ASPEN L NOTE: The Pap Test is a scree jose test with an inher ent false negat destini rate. Liqui d-bas ed sampl ing june decre ase, but will not elimi alan, false negat destini resul ts. A negat destini resul t does not precl ude the prese nce and/o r devel opmen t of disea se, since the prese nce of abnor mal cells in the sampl e depen ds on the locat ion of the lesio n and sampl ing techn ique. Ade nued regul ar scree jose is the best metho d of cance r preve ntion . If repor jose cytol ogic findi ng do not corre late with physi daphney and/o r histo rical findi ngs, furth er inves tigat ion is recom genaro d, as clini sam alatorre nted. Not Available [facility] (Lab) [address], [place], [address], 07/04/2023 15:17:18 Result Notes None recorded. Procedures Surgical History Date Name Laterality Status Provider Name and Address Organization Details Recorded Time 09/25/19 24 SALPINGECTOMY, LAPAROSCOPIC (SURG) completed [facility] 09/25/2023 09:30:43 07/01/19 24 Date of Last Pap Smear completed [facility] 07/22/2023 09:58:09 04/01/19 20 completed [facility] 07/01/2023 11:47:17 04/01/19 20 Date of Last Colonoscopy completed [facility] 07/01/2023 11:47:17 02/18/19 08 Tonsillectomy completed [facility] 07/01/2023 11:50:26 Imaging Results None recorded. Procedure Notes None recorded. Medical Equipment None Reported. Allergies No known drug allergies Medications Name Sig Start Date Stop Date Status Note LastModified by Organization Details LastModified Time amoxicillin 500 mg capsule 06/30 completed Not Available Not Available Not Available meloxicam 15 mg tablet 06/30 completed Not Available Not Available Not Available dextroamphetamin e-amphetamine 10 mg tablet active Not Available Not Available No t Available tramadol 50 mg tablet active Not Available Not Available Not Available oxycodone-acetam inophen 5 mg-325 mg tablet 10/02 completed Not Available Not Available Not Available ondansetron 4 mg disintegrating tablet active Not Available Not Available Not Available amoxicillin 875 mg-potassium clavulanate 125 mg tablet 10/02 completed Not Available Not Available Not Available nabumetone 500 mg tablet active Not Available Not Available No t Available Adderall (10mg) 06/30 completed Not Available Not Available Not Available Vitals Date Recorded Body weight Body mass index (BMI) Body height Systolic blood pressure Diastolic blood pressure Provider Name and Address Organization Details Last Updated DateTime 07/01/2023 965628.4 7 g 37.8 kg/m2 165.1 cm 113 mm[Hg] 76 mm[Hg] Sumi Glenwood [facility] 4 11:46:54 Date Recorded Body height Body mass index (BMI) Body weight Systolic blood pressure Diastolic blood pressure Provider Name and Address Organization Details Last Updated DateTime 07/22/2023 165.1 cm 37.4 kg/m2 671812.2 8 g 111 mm[Hg] 77 mm[Hg] Maryam Diamond [facility] 4 09:57:38 Date Recorded Body height Body mass index (BMI) Body weight Systolic blood pressure Diastolic blood pressure Provider Name and Address Organization Details Last Updated DateTime 10/03/2023 165.1 cm 35.9 kg/m2 42082.95 g 100 mm[Hg] 65 mm[Hg] Kiersten Woodson [facility] 4 14:51:22 Social History Question Answer Notes LastModified by Organizat ion Details LastModified Time Tobacco Smoking Status Current Every Day Smoker Sumi Glenwood [facility] 07/01/2023 11:50:16 What Is Your Level Of Alcohol Consumption? Occasional Information not available 07/01/2023 Are You Blind Or Do You Have Difficulty Seeing? No Information not available 07/01/2023 What Is Your Level Of Caffeine Consumption? Heavy Information not available 07/01/2023 In The 14 Days Before Symptom Onset, Have You Had Close Contact With A Laboratory-confir med COVID-19 While That Case Was Ill? No Information not available 07/01/2023 In The 14 Days Before Symptom Onset, Have You Had Close Contact With A Person Who Is Under Investigation For COVID-19 While That Person Was Ill? No Information not available 07/01/2023 Have You Been To An Area Known To Be High Risk For COVID-19? No Information not available 07/01/2023 Are You Deaf Or Do You Have Serious Difficulty Hearing? No Information not available 07/01/2023 What Type Of Diet Are You Following? REGULAR Information not available 07/01/2023 What Is The Highest Grade Or Level Of School You Have Completed Or The Highest Degree You Have Received? [id number] Information not available 07/01/2023 Are There Any Guns Present In Your Home? No Information not available 07/01/2023 Do You Use Protection During Sex? Always Information not available 07/01/2023 Do You Use Your Seat Belt Or Car Seat Routinely? Yes Information not available 07/01/2023 Do You Have Smoke And Carbon Monoxide Detectors In Your Home? Yes Information not available 07/01/2023 How Much Tobacco Do You Smoke? 0.5 PPD [email or web address] Information not available 10/03/2023 Do You Feel Stressed (tense, Restless, Nervous, Or Anxious, Or Unable To Sleep At Night)? [id number] Information not available 07/01/2023 Do You Use Any Illicit Or Recreational Drugs? No Information not available 07/01/2023 Do You Use Sunscreen Routinely? Yes Information not available 07/01/2023 Have You Used IV Drugs? No Information not available 07/01/2023 Sex: Unknown Functional Status Question Answer Note LastModified by Organizat ion Details LastModified Time Do you have difficulty walking or climbing stairs? No [email or web address] Information not available 07/22/2023 Are you able to walk? YESWOREST [email or web address] Information not available 07/01/2023 Are you able to care for yourself? Yes [email or web address] Information not available 07/22/2023 Do you have difficulty dressing or bathing? No [email or web address] Information not available 07/22/2023 What is your exercise level? Occasional Information not available 07/01/2023 Mental Status None recorded. Family History Relationship Description Onset Age of this Age Resolved Age Notes LastModified by Organization Details LastModified Time Mother [facility] mellitus [email or web address] Not available 2023 11:47:05 Maternal Grandmother Malignant tumor of breast [email or web address] Not available 2023 11:47:05 Father Malignant tumor of colon [email or web address] Not available 2023 11:47:05 Medical History Condition Response Other N No Past Medical History Y Gynecological History Statement/Question Response Abnormal Pap N Date of Last Mammogram Date of LMP 09/13/2023 N On BCP's at Conception? N STIs/STDs N Was last menstrual period normal Y HPV Vaccine N Colposcopy Duration of Flow (days) 4 Current Control Method Tubal Ligat ion Age at First Child 29 Are cycles usually normal Y Date of Last Colonoscopy 04/01/2019 Sexually Active? Y Menses Monthly Y Date of DEXA bone scan Age of first menstrual cycle 11 Date of Last Pap Smear 07/01/2023 Sexual Problems? N LMP Approximate 04/01/2019 N Obstetrics History GPAL:G 1 P 0 0 0 2 Type Value Multiple Births 1 Living 2 Total 1 Past Encounters Encounter ID Performer Location Encounter Start Date Encounter Closed Date Diagnosis/Indication Diagnosis SNOMED-CT Code Diagnosis ICD10 Code Diagnosis Note [id number] KATELIN Perry [place] [address] [address] 07/01/2023 11:33:54 07/01/2023 12:20:09 Gynecologic examination 98193439 Z01.419 WWEBC - condomspap updateddec lined STI screenrout ine labs UTD/PCPRTC in 1 yr or sooner if needed Take Calcium with Vitamin D daily if not receiving in daily diet.It is strongly advised to have an annual flu shot and up can obtain at most pharmacies . If you have not had a TDap shot in the last 10 years you should obtain one as well. Discussed with patient & provided with jennie rojas regarding Gardisil vaccine to prevent the 4 strains for HPV that cause cervical cancer if under age 26.Encoura ge safe sexual practices, to use condoms and limit partners if not already in a monogamous relationsh ip.Do monthly self breast exams. BRCA testing is now available for patients with strong genetic history of female cancer. If interested contact the office. Engage in regular exercise. Avoid tobacco and illicit drugs. This lifestyle behavior pattern will lead to less health conditions and longer life span. If BMI greater than 25 dietary consult advised. Patient received above instructio ns, and questions have been answered. If you have any questions please call or respond to this email. Patient was made aware of the patient portal and may obtain a paper copy of today's plan if desired. Contracept ion care management 278329640 Z30.9 All BC methods discussedd esires permeant sterlizati onSC consult scheduled [id number] Tevin Bernal MD [place] [address] [address] 07/22/2023 09:46:04 07/22/2023 10:50:33 Female sterilization 26016299 Z30.2 This patient presents for female sterilizat ion. The patient desires tubal ligation. She is certain that she no longer wants to be fertile. We discussed sterilizat ion in detail. I described the procedure to the patient in detail. I informed her that we remove the tubes entirely in a. We discussed alternativ es. The patient knows they are highly effective reversible options. She understand s that the Salpingect leyda n is permanent. We discussed failure rate. She understand s there is reported failure rate to salpingect leyda.. As described salpingect leyda and removal of the entire tube. I discussed the reduction in ovarian cancer risk. The patient understand s and is ready to proceed with laparoscop ic bilateral tubal ligation. She understand s the tubes we fulgurated . She return for informed consent process. Her surgery will be scheduled. [id number] Tevin Bernal MD [place] [address] [address] 10/03/2023 14:39:10 10/03/2023 15:08:47 Postoperative care 505375270 Z48.89 This patient is a 32-year-ol d female who presents for postop follow-up. She is 1 week postop from a laparoscop ic bilatera Salpingect leyda. Her incisions are clean dry and intact. She has no complaints . She is recovering normally. She will follow up as needed. Health Concerns Section Related Observation LastModified by Organization Detai ls LastModified Time None Recorded Concern Status LastModified by Organization Details LastModified Time None Recorded Advance Directives Directive None Recorded Payers Encounter Date Sequence Insurance Name Policy Number Policy Anand Covered Member ID Anand Member ID Guarantor Name 07/01/2023 2 [facility] - DOS ON OR AFTER 20 (MEDICAID REPLACEMENT - HMO) Usha Orellana [id number] Usha Orellana 07/22/2023 2 [facility] - DOS ON OR AFTER 20 (MEDICAID REPLACEMENT - HMO) Usha Orellana [id number] Usha Orellana 10/03/2023 2 [facility] - DOS ON OR AFTER 20 (MEDICAID REPLACEMENT - HMO) Usha Orellana [id number] Usha Orellana 10/03/2023 1 [employer] (PPO) [facility] Lyle Oconnell [id number] Usha Orellana Notes Date Note Type Note Provider Name and Address Organization Details Recorded Time 07/01/2023 text/html Annual GYNReport ed bypatient.Menstrual cycle:Normal menses Urinary symptoms:No hematuria; No incontinence Vulva:No genital lesion Vagina:Normal vaginal discharge Breast:No breast pain; No breast lump; No nipple discharge Current Contraception:Condom s Sexual complaints:No sexual complaints; No pain during intercourse; Normal libido Menopausal Symptoms:No menopausal symptoms; Normal vaginal lubrication Psychological symptoms:No depression; No anxiety; No PMDD Preventive measures:Encourage self breast examination; Encourage regular exercise; Encourage no tobacco use; Encourage regular mammograms starting age 39Notes:32yoWWEBC - condoms, desires permeant sterlization - has twin 3 year olds at homelast pap 5 yrs agono abnormal papsmonthly periodscurrent tobacco smoker KATELIN [facility] [address], [place], [address], [facility] 07/01/2023 12:16:37 07/22/2023 text/html This patient presents for female sterilization. The patient desires tubal ligation. She is certain that she no longer wants to be fertile. We discussed sterilization in detail. I described the procedure to the patient in detail. I informed her that we remove the tubes entirely in a. We discussed alternatives. The patient knows they are highly effective reversible options. She understands that the Salpingectomy n is permanent. We discussed failure rate. She understands there is reported failure rate to salpingectomy.. As described salpingectomy and removal of the entire tube. I discussed the reduction in ovarian cancer risk. The patient understands and is ready to proceed with laparoscopic bilateral tubal ligation. She understands the tubes we fulgurated. She return for informed consent process. Her surgery will be scheduled. spent more than 40 minutes [id number]. More than 50% was counseling. We made a decision to perform surgery. Tevin Bernal MD [address], [place], [address], [facility] 07/22/2023 10:48:54 10/03/2023 text/html This patient is a 32-year-old female who presents for postop follow-up. She is 1 week postop from a laparoscopic bilatera Salpingectomy. Her incisions are clean dry and intact. She has no complaints. She is recovering normally. She will follow up as needed. Tevin Bernal MD [address], [place], [address], [facility] 10/03/2023 15:07:24 OBGyn Episode Ob Episode Information Episode Created Date Number of Fetuses Patient Bloodtype Patient rh Status Prepregnancy Weight lbs Domestic Partner Domestic Partner Phone Father Name Residential Air Sealing Technician Status 07/01/19 24 1 CLOSED Fetus Data First Name Last Name Admitted to NICU Weight (g) Sex Living Outcome Pediatric Complications Fetus ID Race Codes Race Delivery Type Full Term [id number] Vaginal Delivery Everette Calculation Initial Everette Date Initial Exam Date Initial Exam Provider Initial Ultrasound Date Last Menstrual Period Date Ultra Sound Weeks Gestation 0 Eighteen To Twenty Week Everette Update Ultra Sound Date Fundal Height At Umbil Quickening Date Ultra Sound Latest Weeks Gestation Final Everette Confirmed By Final Everette Confirmed Date Final Everette Date Ultra Sound Latest Days Gestation 0 0 Menstrual History Last Menstrual Date Menses Monthly On Bcp Conception Prior Menses Frequency Hcg Plus Date Menarche Onset Age Delivery Information Delivery Date Delivery Type Labor Anesthesia Weeks Gestation Incision Type Labor Labor Length Hrs Delivered By Post Complications Tubal Sterilization Discharge Date Comments 1 boy 7'2 and girl 6'2 twins Discharge Information Feeding Method Contraceptive Method Maternal HG B and HCT Levels
--- OUTSIDE RECORDS SUMMARY | 2024-04-13 13:47 | XMS_ITS | Patient Health Summary ---
Author Organization [facility] Address [address] [place] [address] Care Team Providers Care Boomswing Operator Name Role Phone Bradford Philippe MD Primary Care Provider [phone] [facility],non-owned Affiliates and Associated Physician Practices is amultiple site organization consisting of ambulatory clinics and hospital sitesin [place], [place], [place] and [place]. This disclosure is being madepursuant to the Care Everywhere program and may not contain all information available regarding this patient. Last updated 17.[facility] Allergies No known active allergies Medications * Be aware that medications may not be up to date on this document. Alwaysverify current medications with the patient. * Vit-Fe Fumarate-FA ( PO) Take 1 tablet by mouth once daily * aspirin (ASPIRIN) 81 MG chew tablet(Started 10/09/2019) Take 2 tablets by mouth once daily 5 refills by 10/08/2020 * Folic Acid (FOLATE PO) Take 1 tablet by mouth once daily * ferrous sulfate 325 (65 FE) MG tablet(Started 01/27/2020) Take 1 tablet by mouth once daily 5 refills by 01/26/2021 * iron polysaccharides (NIFEREX 150) 150 MG capsule(Started 04/10/2020) Take 1 (one) capsule by mouth once daily 4 refills by 04/10/2021 * docusate sodium (COLACE) 100 MG capsule(Started 04/10/2020) Take 1 (one) capsule by mouth 2 times daily as needed for Constipation (relief of difficult bowel movements) 1 refill by 04/10/2021 * polyethylene glycol 3350 (MIRALAX) 17 g packet(Started 04/10/2020) Take 17 (seventeen) g by mouth once daily as needed for Constipation 3 refills by 04/10/2021 * acetaminophen (TYLENOL) 325 MG tablet(Started 04/10/2020) Take 2 (two) tablets by mouth every 6 hours as needed for Fever or Pain Maximum allowable Acetaminophen amount = 4 Grams (4000 mg) / 24 hours. * ibuprofen (MOTRIN) 600 MG tablet(Started 04/10/2020) Take 1 (one) tablet by mouth every 6 hours as needed for Pain * docusate sodium (COLACE) 100 MG capsule(Started 04/10/2020) Take 1 (one) capsule by mouth 2 times daily 1 refill by 04/10/2021 * norethindrone (ORTHO MICRONOR; NOR-QD; TANNER; DOTTIE; ANJALI-BE; CYNTHIA; JOLIVETTE) 0.35 MG tablet(Started 04/10/2020) Take 1 (one) tablet by mouth once daily 2 refills by 04/10/2021 * Drospirenone (SLYND) 4 MG TABS tablet(Started 05/31/2020) Take 1 (one) tablet by mouth once daily 11 refills by 05/31/2021 Active Problems Problem Noted Date Diagnosed Date Encounter for elective induction of labor 2020 GBS (group B Streptococcus c arrier), +RV culture, currently 03/17/2020 Known anomaly, antepartum, fetus 2 020 COVID-19 affecting in second trimester 12/25/2019 Cigarette smoker 10/05/2019 Family history of colon cancer in father 020 Obesity (BMI 30-39.9) 10/05/2019 Dichorionic diamniotic twin in first t rimester 09/11/2019 Resolved Problems Problem Noted Date Diagnosed Date Resolved Date Smoker 09/11/2019 02/16/2020 Immunizations * INFLUENZA VACCINE(Given 12/03/2019) * TDAP (7yrs+)(Given 01/27/2020) Social History Tobacco Use Types Packs/Day Years Used Date Smoking Tobacco: Former Cigarettes 0.5 10 Smokeless Tobacco: Never Tobacco Cessation:Ready to Q uit: Yes; Counseling Given: Yes Alcohol Use Standard Drinks/Week Comments Not Currently 0 (1 standard drink = 0.6 oz pur e alcohol) AUDIT-C Answer Date Recorded Q1: How often do you have a drink containing alc ohol? Never 09/10/2019 Average Number of Drinks Not on file 020 Frequency of Binge Drinking Not on file 08/19 Overall Financial Resource Strain (CARDIA) Answe r Date Recorded How hard is it for you to pa y for the very basics like food, housing, medical care, and heating? Not hard at all 10/05/2019 Hunger Vital Sign Answer Date Recorded Within the past 12 months, y ou worried that your food would run out before you got the money to buy more. Never true 10/05/19 20 Within the past 12 months, t he food you bought just didn't last and you didn't have money to get more. Never true 10/05/2019 PRAPARE - Transportation Answer Date Re corded In the past 12 months, has l ack of transportation kept you from medical appointments or from getting medications? No 09/18 In the past 12 months, has l ack of transportation kept you from meetings, work, or from getting things needed for daily living? No 10/05/2019 Education Answer Date Recorded What is the highest level of school you have completed or the highest degree you have received? Some college, no degree 10/05/2019 Sex and Gender Information Value Date Recorded Sex Assigned at Not on file Gender Identity Not on file Sexual Orientation Not on file Last Filed Vital Signs Vital Sign Reading Time Taken Comments Blood Pressure 118/76 05/31/2020 10:12 AM CDT Pulse 78 04/10/2020 12:12 AM LEAD CARE MANAGER Temperature 35.6 C (96.1 F) 05/31/2020 10:12 AM CDT Respiratory Rate 18 04/10/2020 7:40 AM LEAD CARE MANAGER Oxygen Saturation 99% 04/10/2020 7:40 AM LEAD CARE MANAGER Inhaled Oxygen Concentration - - Weight 104.8 kg (231 lb) 05/31/2020 10:12 AM CDT Height 165.1 cm (5' 5 ) 05/31/2020 10:12 AM CDT Body Mass Index 38.44 05/31/2020 10:12 AM CDT Procedures * IMAGING/RADIOLOGY/XRAY RESULTS ORDER(Performed 04/11/2020) * CBC W AUTO DIFFERENTIAL(Performed 04/09/2020) * BLOOD GASES CORD ARTERIAL(Performed 04/08/2020) * BLOOD GASES CORD ROLO(Performed 04/08/2020) * NEURAXIAL BLOCK(Performed 04/08/2020) * BLOOD TYPE VERIFICATION(Performed 04/07/2020) * TYPE + SCREEN PANEL(Performed 04/07/2020) * CBC W AUTO DIFFERENTIAL(Performed 04/07/2020) * URINALYSIS - POINT OF CARE (AMB) [facility](Performed 04/06/2020) Performed for 39 weeks gestation of ([facility]) * IMAGING/RADIOLOGY/XRAY RESULTS ORDER(Performed 03/31/2020) * IMAGING/RADIOLOGY/XRAY RESULTS ORDER(Performed 03/30/2020) * DE SONO FU OR REPEAT(Performed 03/29/2020) Performed for Dichorionic diamniotic twin in third trimester ([facility]), Encounter for ultrasound to assess anatomy and growth in twin , antepartum ([facility]), Maternal morbid obesity,antepartum, third trimester ([facility]), Maternal anemia in , antepartum, third trimester ([facility]) * DE SONO FU OR REPEAT(Performed 03/29/2020) Performed for Dichorionic diamniotic twin in third trimester ([facility]), Encounter for ultrasound to assess anatomy and growth in twin , antepartum ([facility]), Maternal morbid obesity,antepartum, third trimester ([facility]), Maternal anemia in , antepartum, third trimester ([facility]) * DE BIOPHYS PROFILE W/O STRESS, NST(Performed 03/29/2020) Performed for Dichorionic diamniotic twin in third trimester ([facility]), Encounter for ultrasound to assess anatomy and growth in twin , antepartum ([facility]), Maternal morbid obesity,antepartum, third trimester ([facility]), Maternal anemia in , antepartum, third trimester ([facility]) * DE BIOPHYS PROFILE W/O STRESS, NST(Performed 03/29/2020) Performed for Dichorionic diamniotic twin in third trimester ([facility]), Encounter for ultrasound to assess anatomy and growth in twin , antepartum ([facility]), Maternal morbid obesity,antepartum, third trimester ([facility]), Maternal anemia in , antepartum, third trimester ([facility]) * DE BIOPHYSICAL PROFILE(Performed 03/22/2020) Performed for Maternal morbid obesity in third trimester, antepartum (HCC), Dichorionic diamniotic twin in third trimester ([facility]), Maternal anemia in , antepartum, third trimester (HCC) * DE BIOPHYSICAL PROFILE(Performed 03/22/2020) Performed for Maternal morbid obesity in third trimester, antepartum (HCC), Dichorionic diamniotic twin in third trimester (HCC), Maternal anemia in , antepartum, third trimester (HCC) * URINALYSIS - POINT OF CARE (AMB) [facility](Performed 03/22/2020) Performed for Encounter for supervision of normal in third trimester, unspecified ([facility]) * IMAGING/RADIOLOGY/XRAY RESULTS ORDER(Performed 03/16/2020) * CULTURE STREP B(Performed 03/15/2020) Performed for Encounter for supervision of normal in third trimester, unspecified ([facility]) * DE BIOPHYSICAL PROFILE(Performed 03/15/2020) Performed for Dichorionic diamniotic twin in first trimester (HCC), Maternal morbid obesity, antepartum, third trimester (HCC), Anemia affecting in third trimester (HCC) * URINALYSIS - POINT OF CARE (AMB) [facility](Performed 03/15/2020) Performed for Encounter for supervision of normal in third trimester, unspecified ([facility]) * IMAGING/RADIOLOGY/XRAY RESULTS ORDER(Performed 03/09/2020) * DE BIOPHYSICAL PROFILE(Performed 03/08/2020) Performed for Dichorionic diamniotic twin in first trimester (HCC), Known anomaly, antepartum, fetus 2 (HCC), Maternal morbid obesity, antepartum, third trimester (HCC) * DE BIOPHYSICAL PROFILE(Performed 03/08/2020) Performed for Dichorionic diamniotic twin in first trimester (HCC), Known anomaly, antepartum, fetus 2 (HCC), Maternal morbid obesity, antepartum, third trimester (HCC) * IMAGING/RADIOLOGY/XRAY RESULTS ORDER(Performed 03/02/2020) * DE SONO FU OR REPEAT(Performed 03/01/2020) Performed for Dichorionic diamniotic twin in third trimester (HCC), Maternal morbid obesity, antepartum, third trimester (HCC), complicated by lower urinary tract obstruction (LUTO), fetus 2 of multiple gestation (HCC), Anemia affecting in third trimester ([facility]), Encounter for ultrasound to assess anatomy and growth in twin , antepartum ([facility]) * DE SONO FU OR REPEAT(Performed 03/01/2020) Performed for Dichorionic diamniotic twin in third trimester ([facility]), Maternal morbid obesity, antepartum, third trimester ([facility]), complicated by lower urinary tract obstruction (LUTO), fetus 2 of multiple gestation ([facility]), Anemia affecting in third trimester ([facility]), Encounter for ultrasound to assess anatomy and growth in twin , antepartum ([facility]) * DE BIOPHYSICAL PROFILE(Performed 03/01/2020) Performed for Dichorionic diamniotic twin in third trimester ([facility]), Maternal morbid obesity, antepartum, third trimester ([facility]), complicated by lower urinary tract obstruction (LUTO), fetus 2 of multiple gestation ([facility]), Anemia affecting in third trimester ([facility]), Encounter for ultrasound to assess anatomy and growth in twin , antepartum ([facility]) * DE BIOPHYSICAL PROFILE(Performed 03/01/2020) Performed for Dichorionic diamniotic twin in third trimester ([facility]), Maternal morbid obesity, antepartum, third trimester ([facility]), complicated by lower urinary tract obstruction (LUTO), fetus 2 of multiple gestation ([facility]), Anemia affecting in third trimester ([facility]), Encounter for ultrasound to assess anatomy and growth in twin , antepartum ([facility]) * URINALYSIS - POINT OF CARE (AMB) [facility](Performed 03/01/2020) Performed for Encounter for supervision of normal in third trimester, unspecified ([facility]) * IMAGING/RADIOLOGY/XRAY RESULTS ORDER(Performed 02/24/2020) * IMAGING/RADIOLOGY/XRAY RESULTS ORDER(Performed 02/24/2020) * DE BIOPHYSICAL PROFILE(Performed 02/23/2020) Performed for Dichorionic diamniotic twin in third trimester ([facility]), Maternal morbid obesity, antepartum, third trimester ([facility]), complicated by lower urinary tract obstruction (LUTO), fetus 2 of multiple gestation ([facility]) * DE OB US, LIMITED, FETUS(S)(Performed 02/23/2020) Performed for Dichorionic diamniotic twin in third trimester (HCC), Maternal morbid obesity, antepartum, third trimester (HCC), complicated by lower urinary tract obstruction (LUTO), fetus 2 of multiple gestation (HCC) * IMAGING/RADIOLOGY/XRAY RESULTS ORDER(Performed 02/17/2020) * IMAGING/RADIOLOGY/XRAY RESULTS ORDER(Performed 02/17/2020) * DE BIOPHYSICAL PROFILE(Performed 02/16/2020) Performed for Dichorionic diamniotic twin in third trimester (HCC), Maternal morbid obesity, antepartum, third trimester (HCC), Anemia affecting in third trimester (HCC), abnormality affecting management of mother, single or unspecified fetus (HCC) * DE BIOPHYSICAL PROFILE(Performed 02/16/2020) Performed for Dichorionic diamniotic twin in third trimester (HCC), Maternal morbid obesity, antepartum, third trimester (HCC), Anemia affecting in third trimester (HCC), abnormality affecting management of mother, single or unspecified fetus (HCC) * DE OB US, LIMITED, FETUS(S)(Performed 02/16/2020) Performed for Dichorionic diamniotic twin in third trimester (HCC), Maternal morbid obesity, antepartum, third trimester (HCC), Anemia affecting in third trimester (HCC), abnormality affecting management of mother, single or unspecified fetus (HCC) * URINALYSIS - POINT OF CARE (AMB) [facility](Performed 02/16/2020) Performed for Encounter for supervision of normal in third trimester, unspecified (HCC) * IMAGING/RADIOLOGY/XRAY RESULTS ORDER(Performed 02/08/2020) * DE SONO FU OR REPEAT(Performed 02/05/2020) Performed for Twin gestation in third trimester, unspecified multiple gestation type (HCC), Obesityaffecting in third trimester (HCC), Anemia affecting in third trimester (HCC), abnormality affecting management of mother, single or unspecified fetus (HCC) * DE SONO FU OR REPEAT(Performed 02/05/2020) Performed for Twin gestation in third trimester, unspecified multiple gestation type (HCC), Obesityaffecting in third trimester (HCC), Anemia affecting in third trimester (HCC), abnormality affecting management of mother, single or unspecified fetus (HCC) * URINALYSIS - POINT OF CARE (AMB) [facility](Performed 02/05/2020) Performed for Dichorionic diamniotic twin in third trimester ([facility]) * URINALYSIS - POINT OF CARE (AMB) [facility](Performed 01/27/2020) Performed for Encounter for supervision of normal in third trimester, unspecified ([facility]) * GLUCOSE CHALLENGE(Performed 01/20/2020) * IMAGING/RADIOLOGY/XRAY RESULTS ORDER(Performed 01/11/2020) * URINALYSIS - POINT OF CARE (AMB) [facility](Performed 01/11/2020) Performed for Encounter for supervision of normal in third trimester, unspecified ([facility]) * DE SONO FU OR REPEAT(Performed 01/08/2020) Performed for Dichorionic diamniotic twin in second trimester ([facility]), Obesity affecting in second trimester ([facility]), Encounter for ultrasound to assess interval growth of fetus ([facility]) * PROC US UTERUS F/U TRANSABD OMAR(Performed 01/08/2020) Performed for Dichorionic diamniotic twin in second trimester ([facility]), Obesity affecting in second trimester ([facility]), Encounter for ultrasound to assess interval growth of fetus ([facility]) * DE ULTRASND,PREG UTER,TRANSVAGIN(Performed 01/08/2020) Performed for Dichorionic diamniotic twin in second trimester ([facility]), Obesity affecting in second trimester ([facility]), Encounter for ultrasound to assess interval growth of fetus ([facility]) * IMAGING/RADIOLOGY/XRAY RESULTS ORDER(Performed 12/15/2019) * DE ULTRASND,PREG UTERUS,IMAGE DOC(Performed 12/02/2019) Performed for Encounter for anatomic survey ([facility]), Obesity affecting in second trimester ([facility]), BMI 36.0-36.9,adult, Dichorionic diamniotic twin in second trimester ([facility]), Encounter for screening for cervical length ([facility]) * DE ULTRA,PREG UTER,IMAGE,ADD GEST(Performed 12/02/2019) Performed for Encounter for anatomic survey ([facility]), Obesity affecting in second trimester ([facility]), BMI 36.0-36.9,adult, Dichorionic diamniotic twin in second trimester ([facility]), Encounter for screening for cervical length ([facility]) * DE ULTRASND,PREG UTER,TRANSVAGIN(Performed 12/02/2019) Performed for Encounter for anatomic survey ([facility]), Obesity affecting in second trimester ([facility]), BMI 36.0-36.9,adult, Dichorionic diamniotic twin in second trimester ([facility]), Encounter for screening for cervical length ([facility]) * URINALYSIS - POINT OF CARE (AMB) [facility](Performed 12/02/2019) Performed for Encounter for screening for chromosomal anomalies ([facility]) * IMAGING/RADIOLOGY/XRAY RESULTS ORDER(Performed 11/05/2019) * DE ULTRASND,PREG UTER,TRANSVAGIN(Performed 11/04/2019) Performed for Dichorionic diamniotic twin in second trimester ([facility]), Maternal obesity, antepartum, second trimester ([facility]), Encounter for screening for cervical length ([facility]) * DE OB US, LIMITED, FETUS(S)(Performed 11/04/2019) Performed for Dichorionic diamniotic twin in second trimester ([facility]), Maternal obesity, antepartum, second trimester ([facility]), Encounter for screening for cervical length ([facility]) * SARS-COV-2 (COVID-19) ANTIBODY IGG(Performed 11/04/2019) Performed for 17 weeks gestation of ([facility]) * SEQUENTIAL INTEGRATED SCREEN 2 (PO REF)(Performed 11/04/2019) Performed for 17 weeks gestation of ([facility]) * GLUCOSE CHALLENGE(Performed 11/04/2019) Performed for 17 weeks gestation of ([facility]) * URINALYSIS - POINT OF CARE (AMB) [facility](Performed 11/04/2019) Performed for 17 weeks gestation of ([facility]) * IMAGING/RADIOLOGY/XRAY RESULTS ORDER(Performed 10/06/2019) * SEQUENTIAL INTEGRATED SCREEN 1 (PO REF LAB)(Performed 10/05/2019) * DE US NUCHAL TRANSLUCENCY 1ST GESTATION(Performed 10/05/2019) Performed for Dichorionic diamniotic twin in first trimester ([facility]), Maternal obesity, antepartum, first trimester ([facility]) * DE US NUCHAL TRANSLUCENCY EA ADDL GESTAT(Performed 10/05/2019) Performed for Dichorionic diamniotic twin in first trimester ([facility]), Maternal obesity, antepartum, first trimester ([facility]) * URINALYSIS - POINT OF CARE (AMB) [facility](Performed 10/05/2019) Performed for Encounter for screening for chromosomal anomalies ([facility]) * IMAGING/RADIOLOGY/XRAY RESULTS ORDER(Performed 09/11/2019) Performed for Encounter for supervision of normal first in first trimester ([facility]) * HIV-1 HIV-2 ANTIBODY + HIV P24 AG PANEL(Performed 09/10/2019) Performed for Encounter for supervision of normal first in first trimester ([facility]) * PROFILE I W/ HBSAG(Performed 09/10/2019) Performed for Encounter for supervision of normal first in first trimester ([facility]) * CULTURE URINE(Performed 09/10/2019) Performed for Encounter for supervision of normal first in first trimester ([facility]) * C. TRACHOMATIS + N. GONORRHOEAE + TRICH LOTTIE(Performed 09/10/2019) Performed for Encounter for supervision of normal first in first trimester ([facility]) * DE ULTRASOUND, UTERUS(Performed 09/10/2019) Performed for Dichorionic diamniotic twin in first trimester ([facility]), Maternal obesity, antepartum, first trimester ([facility]) * DE ULTRASND,PREG UTERUS,ADDL GEST(Performed 09/10/2019) Performed for Dichorionic diamniotic twin in first trimester ([facility]), Maternal obesity, antepartum, first trimester ([facility]) * URINALYSIS - POINT OF CARE (AMB) [facility](Performed 09/10/2019) Performed for Encounter for supervision of normal first in first trimester ([facility]) * CULTURE URINE(Performed 08/14/2013) Results * IMAGING RADIOLOGY XRAY RESULTS ORDER (04/11/2020 2:18 PM LEAD CARE MANAGER) Only the most recent of16 resultswithin the time period is included. Anatomical Region Laterality Modality Other Narrative 04/11/2020 2:18 PM LEAD CARE MANAGER Ordered by an unspecified provider. Scanned Document IMAGING * (ABNORMAL) CBC W AUTO DIFFERENTIAL (04/09/2020 6:37 AM LEAD CARE MANAGER) Only the most recent of2 resultswithin the time period is included. WBC 10.0 4.4 - 10.7 x10E9/L 04/09/2020 7:22 AM LEAD CARE MANAGER [facility] WBC Corrected 04/09/2020 7:22 AM LEAD CARE MANAGER [facility] RBC 3.83 3.80 - 5.20 x10E12/L 04/09/2020 7:22 AM LEAD CARE MANAGER [facility] Hemoglobin 11.7(L) 12.0 - 15.6 gm/dL 04/09/2020 7:22 AM [facility] Hematocrit 36.0 35.9 - 45.5 % 04/09/2020 7:22 AM [facility] MCV 94.0 80.7 - 98.3 fl 04/09/2020 7:22 AM [facility] MCH 30.5 26.7 - 34.0 pg 04/09/2020 7:22 AM [facility] MCHC 32.5 30.8 - 35.9 gm/dL 04/09/2020 7:22 AM [facility] Platelet Count 156 153 - 416 x10E9/L 04/09/2020 7:22 AM [facility] RDW-CV 14.0 12.1 - 14.9 % 04/09/2020 7:22 AM [facility] MPV 12.3 9.4 - 12.9 fl 04/09/2020 7:22 AM [facility] Neutrophils % 81.5(H) 44.0 - 73.0 % 04/09/2020 7:22 AM [facility] Lymphocytes % 12.7(L) 20.0 - 43.0 % 04/09/2020 7:22 AM [facility] Monocytes % 4.5(L) 5.0 - 13.0 % 04/09/2020 7:22 AM [facility] Eosinophils % 0.7 0.0 - 6.0 % 04/09/2020 7:22 AM [facility] Basophils % 0.2 0.0 - 2.0 % 04/09/2020 7:22 AM [facility] Immature Granulocytes 0.4 0 - 1 % 04/09/2020 7:22 AM [facility] Neutrophil Absolute 8.15(H) 2.01 - 7.14 x10E9/L 04/09/2020 7:22 AM [facility] Lymphocytes Absolute 1.27 1.07 - 3.94 x10E9/L 04/09/2020 7:22 AM [facility] Monocytes Absolute 0.45 0.26 - 1.07 x10E9/L 04/09/2020 7:22 AM [facility] Eosinophils Absolute 0.07 0 - 0.47 x10E9/L 04/09/2020 7:22 AM LEAD CARE MANAGER [facility] Basophils Absolute 0.02 0 - 0.08 x10E9/L 04/09/2020 7:22 AM LEAD CARE MANAGER [facility] Immature Granulocytes Absolute 0.04 0.00 - 0.06 x10E9/L 04/09/2020 7:22 AM LEAD CARE MANAGER [facility] nRBC Auto 0 /100 WBC 04/09/2020 7:22 AM LEAD CARE MANAGER [facility] Blood BLOOD SPECIMEN / Unknown Lab Venipuncture / Unknown 04/09/2020 6:37 AM LEAD CARE MANAGER 04/09/2020 7:10 AM LEAD CARE MANAGER Pancho Barahona MD LAB - HEMATOLOGY ORD ERABLES [facility] [address] [place] [address] * (ABNORMAL) BLOOD GASES CORD ROLO (04/08/2020 5:29 PM LEAD CARE MANAGER) pH Cord Venous 7.26(L) 7.28 - 7.40 pH 04/08/2020 5:34 PM LEAD CARE MANAGER [facility] Comment:L pCO2 Cord Venous 53(H) 35 - 45 mm hg 04/08/2020 5:34 PM LEAD CARE MANAGER [facility] Comment:H pO2 Cord Venous 25 22 - 33 mm hg 04/08/2020 5:34 PM LEAD CARE MANAGER [facility] HCO3 Cord Venous 23 22 - 24 mmol/L 04/08/2020 5:34 PM LEAD CARE MANAGER [facility] Comment:L BE Cord Venous -5.1 mmol/L 04/08/2020 5:34 PM LEAD CARE MANAGER [facility] O2 Saturation Cord Venous 55 % 04/08/2020 5:34 PM LEAD CARE MANAGER [facility] Mode Unknown 04/08/2020 5:34 PM LEAD CARE MANAGER [facility] Dann's Test N/A 04/08/2020 5:34 PM LEAD CARE MANAGER [facility] Sample Site UMB 04/08/2020 5:34 PM LEAD CARE MANAGER [facility] Sample Type Venous 04/08/2020 5:34 PM LEAD CARE MANAGER [facility] Power Superintendent ID [id number] 04/08/2020 5:34 PM LEAD CARE MANAGER [facility] Notified By Baby A 04/08/2020 5:34 PM LEAD CARE MANAGER [facility] Blood CORD BLOOD SPECIMEN / Unknown 04/08/2020 5:29 PM LEAD CARE MANAGER 04/08/2020 5:29 PM LEAD CARE MANAGER Pancho Barahona MD LAB - BLOOD GASES OR DERABLES [facility] [address] [phone] * BLOOD GASES CORD ARTERIAL (04/08/2020 5:29 PM LEAD CARE MANAGER) pH Cord Arterial 7.26 7.20 - 7.34 pH 04/08/2020 5:35 PM LEAD CARE MANAGER [facility] Comment:L pCO2 Cord Arterial 52 45 - 55 mm hg 04/08/2020 5:35 PM LEAD CARE MANAGER [facility] Comment:H pO2 Cord Arterial 14 12 - 25 mm hg 04/08/2020 5:35 PM LEAD CARE MANAGER [facility]ER[facility] Comment:L HCO3 Cord Arterial 22.8 22.0 - 24.0 mmol/L 04/08/2020 5:35 PM LEAD CARE MANAGER [facility] RESP THERAP[facility] BE Cord Arterial -4.9 mmol/L 04/08/19 5:35 PM LEAD CARE MANAGER [facility] RES[facility]ERAP[facility] Comment:L O2 Saturation Cord Arterial 26 % 04/08/2020 5:35 PM LEAD CARE MANAGER [facility] RES[facility]ERAP[facility] Mode Unknown 04/08/2020 5:35 PM LEAD CARE MANAGER [facility] RESP THERAPY Dann's Test N/A 04/08/2020 5:35 PM LEAD CARE MANAGER [facility]AP[facility] Sample Site UMB 04/08/2020 5:35 PM LEAD CARE MANAGER [facility] RES[facility]ERAP[facility] Sample Type Arterial 04/08/2020 5:35 PM LEAD CARE MANAGER [facility] RESP THERAPY Power Superintendent ID [id number] 04/08/2020 5:35 PM LEAD CARE MANAGER [facility] RES[facility]ERAP[facility] Notified Who MGrubb RN 04/08/2020 5:35 PM LEAD CARE MANAGER [facility] RES[facility]ERAP[facility] Notification Time 04/08/2020 17:35 04/08/2020 5:35 PM LEAD CARE MANAGER [facility] RES[facility]ERAP[facility] Notified By Floyd B 04/08/2020 5:35 PM LEAD CARE MANAGER [facility]AP[facility] Blood, arterial CORD BLOOD SPECIMEN / Unknown 04/08/2020 5:29 PM LEAD CARE MANAGER 04/08/2020 5:29 PM LEAD CARE MANAGER Pancho Barahona MD LAB - BLOOD GASES OR DERABLES [facility] [address] [phone] * EPIDURAL BLOCK PERF (04/08/2020 1:25 PM LEAD CARE MANAGER) Narrative Marybel Gallagher APRN-DISMANTLER - 04/08/2020 1:25 PM LEAD CARE MANAGER Marybel Gallagher APRN-CRNA 04/08/2020 1:25 PM Neuraxial Block Note Pre-Procedure: Procedure Name: Neuraxial Block Patient Location: OB Indications: labor analgesia Pre-Anesthetic Checklist: Patient identified, IV Checked, Risks and benefits discussed, Surgical consent verified, Monitors and equipment, Site examined, Pre-op evaluation done, Time-out performed, Informed consent obtained, Questions answered/anesthesia questions answered and Allergies reviewed Anticoagulation/ Anti-thrombosis status confirmed? Yes Supplemental O2: room air Monitors: BP and continuous pluse ox Patient Condition: awake Patient Sedated? No Procedure: Block Type: Epidural Prep: Betadine Sterile Field: mask, cap/hat, sterile established and sterile gloves Approach: midline Skin was localized? Nursing documentation on MAR Skin localized with: Lidocaine 1% and 3 mL Epidural Block: Is this procedure for postop pain? No Needle Type: Tuohy Needle gauge: 18 G Needle length: 90 mm Placement Site: L4-L5 Number of Attempts: 1 Loss of Resistance: 9 air Catheter length at skin (cm): 14 CSF Aspirated from catheter: No Blood Aspirated: No Test Dose: lidocaine 1.5% with 1-200,000 epinephrine 3 mL Test Dose Response: No Epidural Local Anesthetic Used? No Epidural Infusion Medications: Ropivacaine: 0.2% with Fentanyl 2mcg/mL in NS , 150 cc (mL) at 12 mL/hr Degree of difficulty: none Procedure Tolerance: tolerated well Sensory Level: T6 Motor Blockade: Yes Position post procedure: head of bed elevated 30 degrees, left uterine displacement Vital Signs: Vital signs moniitored and stable throughout. See nursing vitals flowsheet for details. Staff: Anesthesia Provider: Marybel Gallagher APRN-DISMANTLER - performed the procedure Armando Black MD GENERAL ANESTHESIA ORDERABLES * BLOOD TYPE VERIFICATION (04/07/2020 11:04 PM LEAD CARE MANAGER) ABO Rh A POS 04/08/2020 12:10 AM LEAD CARE MANAGER [facility] B[facility]OD [facility] LAB Blood Bank BLOOD SPECIMEN / Unknown Venipuncture / Unknown 04/07/2020 11:04 PM LEAD CARE MANAGER 04/07/2020 11:41 PM LEAD CARE MANAGER Pancho Barahona MD LAB - BLOOD BANK ORD ERABLES [facility] [address] [phone] * TYPE + SCREEN PANEL (04/07/2020 10:37 PM LEAD CARE MANAGER) ABO Rh A POS 04/07/2020 11:23 PM LEAD CARE MANAGER [facility]LOOD [facility] LAB Comment:No history; collect retype. Antibody Screen NEG 11:23 PM LEAD CARE MANAGER [facility] BLOOD [facility] LAB Blood Bank BLOOD SPECIMEN / Unknown Venipuncture / Unknown 04/07/2020 10:37 PM LEAD CARE MANAGER 04/07/2020 10:46 PM LEAD CARE MANAGER Pancho Barahona MD LAB - BLOOD BANK ORD ERABLES [facility] [address] [place] [address] * URINALYSIS - POINT OF CARE (AMB) [facility] (04/06/2020) Only the most recent of12 resultswithin the time period is included. Specific [place] UA 1.020 pH UA 5 WBC UA ++ Nitrite UA neg Protein UA 30 Glucose UA neg Ketones UA POCT neg Urobilinogen UA neg Bilirubin UA POCT neg Blood Urine POCT trace Urine URINE / Unknown 04/06/2020 Saji Vasquez MD LAB - POINT OF CARE ORDERABLES * DE BIOPHYS PROFILE W/O STRESS, NST, DE BIOPHYS PROFILE W/O STRESS, NST, DE SONO FU OR REPEAT, DE SONO FU OR REPEAT (03/29/2020 4:04 PM LEAD CARE MANAGER) Narrative Brisa Richter RDMS - 03/29/2020 4:04 PM LEAD CARE MANAGER Brisa Richter RDMS 03/29/2020 4:04 PM Documentation in digisonics. Pancho Barahona MD PROCEDURE/MINOR SURG ICAL ORDERABLES * DE BIOPHYSICAL PROFILE, DE BIOPHYSICAL PROFILE (03/22/2020 11:09 AM LEAD CARE MANAGER) Narrative Brisa Richter RDMS - 03/22/2020 11:09 AM LEAD CARE MANAGER Brisa Richter RDMS 03/22/2020 11:09 AM Documentation in digisonics. Pancho Barahona MD PROCEDURE/MINOR SURG ICAL ORDERABLES * (ABNORMAL) CULTURE STREP B (03/15/2020 11:16 AM LEAD CARE MANAGER) [facility] Signature Culture (A) [facility] Comment: STREPTOCOCCUS, GROUP B CULTURE Micro Number: [id number] Test Status: Final Specimen Source: VAGINAL/ANORECTAL Specimen Quality: Adequate Result: Group B Streptococcus isolated Beta-hemolytic streptococci are predictably susceptible to Penicillin and other beta-lactams. Susceptibility testing not routinely performed. Please contact the laboratory within 3 days if susceptibility testing is desired. Note per CDC guidelines optimal recovery is achieved by swabbing both the lower vagina and rectum (through the anal sphincter). Test Performed at: [facility] [address] [place] [address] MICK SOTO DO,MPH Microbiology MISCELLANEOUS SAMPLES / Unknown 03/15/2020 11:16 AM LEAD CARE MANAGER 03/15/2020 12:12 PM LEAD CARE MANAGER Pancho Barahona MD LAB - MICROBIOLOGY O RDERABLES [facility] [address] [place] [address] * DE BIOPHYSICAL PROFILE (03/15/2020 9:57 AM LEAD CARE MANAGER) Narrative Feb - 03/15/2020 9:57 AM LEAD CARE MANAGER Jose Ralu, 03/15/2020 9:58 AM Documentation in Digisonics. Pancho Barahona MD PROCEDURE/MINOR SURG ICAL ORDERABLES * DE BIOPHYSICAL PROFILE, DE BIOPHYSICAL PROFILE (03/08/2020 8:37 AM LEAD CARE MANAGER) Narrative Paola Randolph - 03/08/2020 8:37 AM LEAD CARE MANAGER Paola Randolph 03/08/2020 8:37 AM Documentation in digisonics Pancho Barahona MD PROCEDURE/MINOR SURG ICAL ORDERABLES * DE BIOPHYSICAL PROFILE, DE BIOPHYSICAL PROFILE, DE SONO FU OR REPEAT, DE SONOPREGNANCY FU OR REPEAT (03/01/2020 11:36 AM LEAD CARE MANAGER) Narrative Brisa Richter RDMS - 03/01/2020 11:36 AM LEAD CARE MANAGER Brisa Richter RDMS 03/01/2020 11:36 AM Documentation in digisonics. Pancho Barahona MD PROCEDURE/MINOR SURG ICAL ORDERABLES * DE OB US, LIMITED, FETUS(S), DE BIOPHYSICAL PROFILE (02/23/2020 10:56 AM LEAD CARE MANAGER) Narrative Henna Perez - 02/23/2020 10:56 AM LEAD CARE MANAGER Henna Perez 02/23/2020 10:56 AM Documentation in digisonics. Pancho Barahona MD PROCEDURE/MINOR SURG ICAL ORDERABLES * DE OB US, LIMITED, FETUS(S), DE BIOPHYSICAL PROFILE, DE BIOPHYSICAL PROFILE (02/16/20209:54 AM LEAD CARE MANAGER) Narrative Brisa Richter RDMS - 02/16/2020 9:54 AM LEAD CARE MANAGER Brisa Richter RDMS 02/16/2020 9:54 AM Documentation in digisonics. Pancho Barahona MD PROCEDURE/MINOR SURG ICAL ORDERABLES * DE SONO FU OR REPEAT, DE SONO FU OR REPEAT (02/05/2020 9:52 AM LEAD CARE MANAGER) Narrative Paola Randolph - 02/05/2020 9:52 AM LEAD CARE MANAGER Paola Randolph 02/05/2020 9:52 AM Documentation in digisonics Pancho Barahona MD PROCEDURE/MINOR SURG ICAL ORDERABLES * GLUCOSE CHALLENGE (01/20/2020) Only the most recent of2 resultswithin the time period is included. Blood BLOOD SPECIMEN / Unknown 01/20/2020 Narrative Rosalie Reilly 01/20/[address] [facility]- see media tab Pancho Barahona MD LAB - CHEMISTRY TIAN GARCIA * DE ULTRASND,PREG UTER,TRANSVAGIN, DE SONO FU OR REPEAT (01/08/2020 1:58 PM LEAD CARE MANAGER) Narrative Yesyallison Henna M - 01/08/2020 1:58 PM LEAD CARE MANAGER YesyHenna cooper 01/08/2020 1:59 PM Documentation in digisonics. Titus Shell MD PROCEDURE/MINOR SURG ICAL ORDERABLES * DE ULTRASND,PREG UTER,TRANSVAGIN, DE ULTRA,PREG UTER,IMAGE,ADD GEST, DE ULTRASND,PREG UTERUS,IMAGE DOC (12/02/2019 11:33 AM CDT) Narrative Henna Perez - 12/02/2019 11:33 AM CDT Henna Perez 12/02/2019 11:33 AM Documentation in digisonics. Titus Shell MD PROCEDURE/MINOR SURG ICAL ORDERABLES * DE OB US, LIMITED, FETUS(S), DE ULTRASND,PREG UTER,TRANSVAGIN (11/04/2019 3:44 PM CDT) Narrative Brisa Richter RDMS - 11/04/2019 3:44 PM CDT Brisa Richter RDMS 11/04/2019 3:44 PM Documentation in digisonics. Joelle Hogan MD PROCEDU RE/MINOR SURGICAL ORDERABLES * SARS-COV-2 (COVID-19) ANTIBODY IGG (11/04/2019 11:36 AM CDT) [facility] SARS COV 2 AB (IGG) NEGATIVE [facility] Comment: Reference range: Negative This test is intended for use as an aid in identifying individuals with an adaptive immune response to SARS-CoV-2, indicating recent or prior infection. Results are for the detection of SARS-CoV-2 antibodies. IgG antibodies to SARS-CoV-2 are generally detectable in blood several days after initial infection, although the duration of time antibodies are present post-infection is not well characterized. At this time, it is unknown for how long antibodies persist following infection and if the presence of antibodies confers protective immunity. Individuals may have detectable virus by molecular testing present for several weeks following seroconversion. Negative results do not preclude acute SARS-CoV-2 infection. This test should not be used to diagnose acute SARS-CoV-2 infection. If acute infection is suspected, direct testing by molecular methods for SARS-CoV-2 is necessary. False positive results for the test may occur due to cross-reactivity from pre-existing antibodies or other possible causes. Please review the Fact Sheets available for health care providers and patients using the following websites: [employer]/home/Covid-19/HCP/antibody/fact-sheet2 [employer]/Covid-19/Patients/antibody/fact-sheet2 This test has been authorized by the FDA under an Emergency Use Authorization (EUA) for use by authorized laboratories. The FDA authorized labeling is available on the [employer] website: www.[employer]/Covid19. For additional information please refer to http://education.[employer]M Scientific/faq/WYE668 (This link is being provided for informational/educational purposes only.) Test Performed at: [facility] [address] PATRICK GERARD MD Blood BLOOD SPECIMEN / Unknown 11/04/2019 11:36 AM CDT 11/04/2019 11:39 AM CDT Royce Simpson RETAIL LEADER-CNM LAB - CHEMISTRY OR DERABLES [address] [address] * SEQUENTIAL INTEGRATED SCREEN 2 (11/04/2019 11:33 AM CDT) Interpretation SEE NOTE [facility] Comment: SCREEN NEGATIVE FOR OPEN NTD AND DOWN SYNDROME FOR TWINS. TRISOMY 18 RISK CANNOT BE CALCULATED FOR TWINS. NT WAS USED IN THE RISK CALCULATIONS. Risk of ONTD UNAVAILABLE [facility] Age Risk Down Syndrome 1:540 [facility] ERIK Down Syndrome Risk <1:5000 <1:270 [facility] Risk of Trisomy 18 UNAVAILABLE <1:100 [facility] Gestational Age 17.4 [facility] Comment: Mehama rump length (CRL) was used to calculate gestational age. RAMANA, if provided, was not used for gestational age dating. Alpha-Fetoprotein 38.5 ng/mL [facility] AFP MoM 0.53 [facility] Comment: Reference Range: <2.50 IDD <1.90 TWINS <4.00 TWINS IDD <3.50 TRIPLETS <4.50 HCG 26.1 IU/mL [facility] HCG MOM 0.63 [facility] Estriol Free 2.30 ng/mL [facility] Estriol MoM 1.46 [facility] Dimeric Inhibin A 295 pg/mL [facility] Inhibin A MoM 1.06 [facility] RISA-A 1241.4 ng/mL [facility] Comment: This test was performed using a kit that has not been cleared or approved by the FDA. The analytical performance characteristics of this test have been determined by [facility]. This test should not be used for diagnosis without confirmation by other medically established means. RISA-A MoM 0.63 [facility] NT MoM 0.97 [facility] Comment: The maternal serum screening results indicate a lower risk of Trisomy 21 in this . The nasal bone was assessed via ultrasound and was present in both twins or present in one twin and not assessed in one twin. The combined risk is therefore likely to be less than the calculated risk. Other findings later in the may change the risk. Nasal bone assessment is best accomplished through a ultrasound performed between 11 weeks 0 days through 13 weeks 6 days. In assessing the risk for aneuploidy, the evaluation of the maternal serum markers plus the nuchal thickness measurement is calculated first. Any potential change to the patient's risk for aneuploidy depends on the nuchal thickness, crown-rump length, and the ethnic origin, and therefore the values generated by the algorithm itself will not change. Additional information about the assessment of the nasal bone may be found on the [employer] website at http://www.fetalmedicine.com/fmf/training-certification/cert edxjbtuj-gg-dyuiz johnny/10-23-qjok-scan/desixhddsn-dy-cuw-nasal-bone/ This patient is carrying twins. The AFP MOM is normal for twins, indicating a low risk for a neural tube defect. The Down syndrome risk reported is a -specific pseudorisk. For dichorionic twin pregnancies, the two fetus-specific NT measurements are added together and then combined with the RISA-A MOM (divided by 1.86), the AFP MOM (divided by 2.13), the hCG MOM (divided by 1.84), the uE3 MOM (divided by 1.67), and the Inhibin A MOM (divided by 1.99) to produce the -specific risk. This patients Down syndrome risk falls within the range most often seen in unaffected cooper pregnancies. This puts this in a low risk group for Down syndrome. A normal test result can never guarantee the of a normal child. In the case of twin pregnancies, some authors recommend a high resolution ultrasound to complement this screen. TwinB NTMoM = 0.96 Referring Physician Name ROYCE SIMPSON Referring Physician [facility] Referring Physician [facility] Specimen Number Part 1 NG [facility] Date of 1990 [facility] Collection Date 11/04/2019 [facility] Patient Weight 218 lbs [facility] RAMANA 04/12/2020 [facility] Nuchal Translucency 1.6 mm [facility] Comment:TWIN B NT=1.6 Mehama Rump Length 71 mm [facility] Comment:TWIN B CRL = 72 Ultrasound Date 10/05/2019 [facility] Nasal Bone PRESENT [facility] Ethnicity WHITE [facility] Insulin Dependent Diabetes N [facility] Repeat Specimen N [facility] Number of Fetusus 2 [facility] History of Neural Tube Defects N [facility] Cigarette Smoker YES [facility] Twin B Nasal Bone PRESENT [facility] Comment: For additional information, please refer to http://education.QM Scientific/faq/FAQ94 (This link is provided for informational/educational purposes only.) This is a screening test, not a diagnostic test. This risk assessment is based on demographic data provided by the ordering physician. Please notify the laboratory promptly if any data are incorrect. It has been observed that patients who smoke cigarettes during may have a slightly increased risk of having a false positive ERIK screen for Down Syndrome or trisomy 18. If you have questions concerning this report: For clinical consultation, call ; For technical questions, call ext [phone]; For recalculations, fax to . Test Performed at: [facility] [address] [place] [address] ALEX SANTOS MD,PHD,NAYLA Blood BLOOD SPECIMEN / Unknown 11/04/2019 11:33 AM CDT 11/04/2019 11:35 AM CDT Royce Simpson RETAIL LEADER-CNM LAB - CHEMISTRY OR DERABLES [facility] [address] [place] [address] * SEQUENTIAL INTEGRATED SCREEN 1 (PO REF LAB) (10/05/2019 12:25 PM CDT) Interpretation SEE NOTE [facility] Comment: This patient's risk does not exceed the first trimester cut-off for Down syndrome or trisomy 18. The integrated screen calculation is awaiting the second trimester sample. NT WAS USED IN THE RISK CALCULATIONS. Thank you for submitting this patient's Part 1 specimen. These first trimester values will be incorporated with the second trimester values as part of the integrated testing process. Please submit the Part 2 specimen between 10/18/2019-12/12/2019 (15.0 and 22.9 weeks gestation) with 10/18/2019-10/31/2019 (15.0 - 16.9 weeks gestation) being optimal. When submitting Part 2, please include the following Specimen # from Part 1: [id number] Age Risk Down Syndrome 1:400 [facility] Down Syndrome Risk IN PROCESS <1:50 [facility] Trisomy 18 Risk UNAVAILABLE <1:60 [facility] Gestational Age 13.1 [facility] Comment: Mehama rump length (CRL) was used to calculate gestational age. RAMANA, if provided, was not used for gestational age dating. RISA-A 1241.4 ng/mL [facility] Comment: This test was performed using a kit that has not been cleared or approved by the FDA. The analytical performance characteristics of this test have been determined by [facility]. This test should not be used for diagnosis without confirmation by other medically established means. RISA-A MoM 0.63 [facility] HCG Quant 111.8 IU/mL [facility] HCG MOM 0.90 [facility] NT MoM 0.97 [facility] Comment: TwinB NTMoM = 0.96 For additional information, please refer to http://education.Wordlock.StyleUp/faq/FAQ89 (This link is being provided for informational/educational purposes only.) This is a screening test, not a diagnostic test. This risk assessment is based on demographic data provided by the ordering physician. Please notify the laboratory promptly if any data are incorrect. It has been observed that patients who smoke cigarettes during may have a slightly increased risk of having a false positive ERIK screen for Down Syndrome or trisomy 18 If you have questions concerning this report: For clinical consultation, call ; For technical questions, call ext [phone]; For recalculations, fax to . Referring Physician Name JOSH MINOR Referring Physician [facility] Referring Physician [facility] Date of 1990 [facility] Collection Date 10/05/2019 [facility] Patient Weight 208 lbs [facility] RAMANA 04/12/2020 [facility] RAMANA Determined By LMP [facility] Race [facility] Number of Fetuses 2 [facility] Insulin Dependent Diabetic NO [facility] Repeat Specimen NO [facility] History Neural Tube Defect NO [facility] History of Down Syndrome NO [facility] Donor Egg NO [facility] Donor Age Egg Retrieval NOT GIVEN [facility] Cigarette Smoker YES [facility] Ultrasound Date 10/05/2019 [facility] Ultrasound Name EVERT BORRERO NTQR Ultrasounder ID [id number] [facility] NTQR Location ID [id number] [facility] NTQR Reading Physician ID NOT GIVEN [facility] FMF Ultrasounder ID NOT GIVEN [facility] Mehama Rump Length 71 mm [facility] Nuchal Translucency 1.6 mm [facility] Nasal Bone PRESENT [facility] If Twins D [facility] Twin B CRL 72 mm [facility] Twin B NT 1.6 mm [facility] Twin B Nasal Bone PRESENT [facility] Comment: REPORT COMMENT: FASTING:NO Test Performed at: [facility] [address] [place] [address] ALEX SANTOS MD,PHD,NAYLA 10/05/2019 12:2 5 PM CDT 10/05/2019 12:28 PM CDT Josh Minor MD LAB - CHEMISTRY TIAN GARCIA [facility] Organization Address City/State/ZIP Co de Phone Number [facility] [address] [place] [address] * DE US NUCHAL TRANSLUCENCY EA ADDL GESTAT, DE US NUCHAL TRANSLUCENCY 1ST GESTATION (10/05/2019 11:36 AM CDT) Narrative Jose Raul, Feb - 10/05/2019 11:36 AM CDT Jose Raul 10/05/2019 11:36 AM Documentation in Digisonics. Royce Simpson RETAIL LEADER-CNM PROCEDURE/MINOR MILLER RGICAL ORDERABLES * PROFILE I W/ HBSAG (09/10/2019 11:01 AM CDT) White Blood Cell Count 6.8 3.8 - 10.8 Thousand /uL [facility] RBC 4.30 3.80 - 5.10 Million/ uL [facility] Hemoglobin 13.3 11.7 - 15.5 g/dL [facility] Hematocrit 39.7 35.0 - 45.0 % [facility] MCV 92.3 80.0 - 100.0 fL [facility] MCH 30.9 27.0 - 33.0 pg [facility] MCHC 33.5 32.0 - 36.0 g/dL [facility] RDW 11.7 11.0 - 15.0 % [facility] Platelet Count 233 140 - 400 Thousand /uL [facility] MPV 10.0 7.5 - 12.5 fL [facility] Neutrophil Absolute 4957 1500 - 7800 cells/uL [facility] Lymphocytes Absolute 1421 850 - 3900 cells/uL [facility] Absolute Monocytes 313 200 - 950 cells/uL [facility] Eosinophils Absolute 88 15 - 500 cells/uL [facility] Basophils Absolute 20 0 - 200 cells/uL [facility] Granulocytes % 72.9 % [facility] Lymphocytes % 20.9 % [facility] Monocytes % 4.6 % [facility] Eosinophils % 1.3 % [facility] Basophils % 0.3 % [facility] Antibody Screen NO ANTIBODIES DETECTED [facility] Comment: Reference range No antibodies detected This assay is a screening test for the detection of red blood cell antibodies. The test is not to be used for pretransfusion screening or for the medical management of an alloimmunized . ABO A [facility] Rh Type RH(D) POSITIVE [facility] Comment: For additional information, please refer to http://education.Nasseo.StyleUp/faq/RSU738 (This link is being provided for informational/ educational purposes only.) RPR NON-REACTIVE NON-REAC TIVE [facility] Hepatitis B Virus Surface Antigen NON-REACTIVE NON-REAC TIVE [facility] Rubella Antibody 1.07 index [facility] Comment: Index Interpretation ----- <0.90 Not consistent with Immunity 0.90-0.99 Equivocal > or = 1.00 Consistent with Immunity The presence of rubella IgG antibody suggests immunization or past or current infection with rubella virus. Test Performed at: [facility] [address] [place] [address] MICK SOTO DO,MPH Blood BLOOD SPECIMEN / Unknown 09/10/2019 11:01 AM CDT 09/10/2019 11:02 AM CDT Royce Simpson DELANEYMAI LAB - CHEMISTRY OR DERABLES Performing Organization Address [facility] Co de Phone Number [facility] [id number] [place] [phone] * HIV-1 HIV-2 ANTIBODY + HIV P24 AG PANEL (09/10/2019 11:01 AM CDT) HIV Screen 4th Generation w Reflex NON-REACT HAILEY NON-REACT HAILEY [facility] Comment: HIV-1 antigen and HIV-1/HIV-2 antibodies were not detected. There is no laboratory evidence of HIV infection. PLEASE NOTE: This information has been disclosed to you from records whose confidentiality may be protected by state law. If your state requires such protection, then the state law prohibits you from making any further disclosure of the information without the specific written consent of the person to whom it pertains, or as otherwise permitted by law. A general authorization for the release of medical or other information is NOT sufficient for this purpose. For additional information please refer to http://education.QM Scientific/faq/QTS582 (This link is being provided for informational/ educational purposes only.) The performance of this assay has not been clinically validated in patients less than 2 years old. Test Performed at: [facility] [address] [place] [address] MICK SOTO DO,MPH Blood BLOOD SPECIMEN / Unknown 09/10/2019 11:01 AM CDT 09/10/2019 11:02 AM CDT Royce Simpson DELANEYMAI LAB - CHEMISTRY OR DERABLES Performing Organization Address [facility] Co de Phone Number [facility] [phone] [place] [address] * (ABNORMAL) CULTURE URINE (09/10/2019 11:01 AM CDT) Only the most recent of2 resultswithin the time period is included. Culture (A) [facility] Comment: CULTURE, URINE, ROUTINE Micro Number: [id number] Test Status: Final Specimen Source: URINE, CLEAN CATCH Specimen Quality: Adequate Result: 50,000-100,000 CFU/mL of Lactobacillus species May represent colonizers from external and internal genitalia. No further testing (including susceptibility) will be performed. COMMENT: Additional organism(s) less than 10,000 CFU/mL isolated. These organisms, commonly found on external and internal genitalia, are considered colonizers. No further testing performed. REPORT COMMENT: FASTING:NO Test Performed at: [facility] [address] [place] [address] MICK SOTO DO,MPH Urine URINE SPECIMEN OBTAINED BY CLEAN CATCH PROCEDURE / Unknown 09/10/2019 11:01 AM CDT 09/10/2019 11:02 AM CDT Royce Simpson RETAIL LEADER-CNM LAB - MICROBIOLOGY ORDERABLES [facility] [address] [place] [address] * C. TRACHOMATIS + N. GONORRHOEAE + TRICH LOTTIE (09/10/2019 10:36 AM CDT) Chlamydia Trachomatis LOTTIE Not Detected Not Detected 09/14/2019 4:25 PM CDT [facility] Neisseria Gonorrhoeae LOTTIE Not Detected Not Detected 09/14/2019 4:25 PM CDT [facility] Trichomonas Vaginalis LOTTIE Not Detected Not Detected 09/14/2019 4:25 PM CDT [facility] Microbiology URINE / Unknown 09/10/2019 1 0:36 AM CDT 09/11/2019 11:18 AM CDT Narrative [facility] - 09/14/2019 4:25 PM CDT This analysis was performed using Gen-Probe Aptima Combo 2 and Gen-Probe Aptima Assay. These methodologies are U.S. FDA approved for Chlamydia trachomatis, Neisseria gonorrhoeae testing for urine and urogenital swabs from men and women, and cervical cells submitted in ThinPrep vials. Performance characteristics of testing for Trichomonas vaginalis on specimens using the Gen-Probe Aptima Trichomonas vaginalis Assay on the WittyParrot system and rectal and pharyngeal swabs with Gen-Probe Aptima combo 2 were determined by the [facility] at [facility]. They have not been cleared or approved by the U.S Food and Drug Administration (FDA). The FDA has determined that such clearance approval is not necessary. This test is used for clinical purposes and should not be regarded as investigational or for research. This laboratory is certified under the Clinical Laboratory Improvements Amendments of 1988 (CLIA 1988), as qualified to perform high complexity laboratory testing. [facility] - MICROBIOLOGY ORDERABLES Performing Organization Address City/State/[facility] Co de Phone Number [facility] [address] [place] [address], [place] [phone] * DE ULTRASND,PREG UTERUS,ADDL GEST, DE ULTRASOUND, UTERUS (09/10/2019 10:03 AM CDT) Narrative Brisa Richter RDMS - 09/10/2019 10:03 AM CDT Brisa Richter RDMS 09/10/2019 10:03 AM Documentation in digisonics. [facility] PROCEDURE/MINOR MILLER RGICAL ORDERABLES Care Teams Boomswing Operator Relationship Specialty Start Date End Date Bradford Philippe MD [address] [place] [address] PCP - General 10/05/19
--- OUTSIDE RECORDS SUMMARY | 2024-04-13 13:47 | XMS_ITS | Referral Summary ---
Author Organization [employer] [facility] Address [address] [place] [address] Care Team Providers Care Water Reclamation Systems Operator Name Role Phone Bradford Philippe MD Primary Care Provider [phone] Source Comments [employer] [facility],non-owned Affiliates and Associated Physician Practices is amultiple site organization consisting of ambulatory clinics and hospital sitesin [place], [place], [place] and [place]. This disclosure is being madepursuant to the Care Everywhere program and may not contain all information available regarding this patient. Last updated 17.[employer] Allergies No known active allergies Medications * Be aware that medications may not be up to date on this document. Alwaysverify current medications with the patient. Medication Sig Dispensed Refills Start Date End Date Status Vit-Fe Fumarate-FA ( PO)Indications:Encou nter for supervision of normal first in first trimester (HCC) Take 1 tablet by mouth once daily Active aspirin (ASPIRIN) 81 MG chew tablet Take 2 tablets by mouth once daily 60 tablet 5 10/09/2019 Active Additional Information Patient not taking.Reported on 05/31/2020 Folic Acid (FOLATE PO) Take 1 tablet by mouth once daily Active ferrous sulfate 325 (65 FE) MG tabletIndications:An emia affecting in third trimester (HCC) Take 1 tablet by mouth once daily 30 tablet 5 01/27/2020 Active Additional Information Patient not taking.Reported on 05/31/2020 iron polysaccharides (NIFEREX 150) 150 MG capsule Take 1 (one) capsule by mouth once daily 60 capsule 4 04/10/2020 Active Additional Information Patient not taking.Reported on 05/31/2020 docusate sodium (COLACE) 100 MG capsule Take 1 (one) capsule by mouth 2 times daily as needed for Constipation (relief of difficult bowel movements) 100 capsule 1 04/10/2020 Active Additional Information Patient not taking.Reported on 05/31/2020 polyethylene glycol 3350 (MIRALAX) 17 g packet Take 17 (seventeen) g by mouth once daily as needed for Constipation 170 g 3 04/10/2020 Active Additional Information Patient not taking.Reported on 05/31/2020 acetaminophen (TYLENOL) 325 MG tablet Take 2 (two) tablets by mouth every 6 hours as needed for Fever or Pain Maximum allowable Acetaminophen amount = 4 Grams (4000 mg) / 24 hours. 100 tablet 04/10/2020 Active Additional Information Patient not taking.Reported on 05/31/2020 ibuprofen (MOTRIN) 600 MG tablet Take 1 (one) tablet by mouth every 6 hours as needed for Pain 90 tablet 04/10/2020 Active docusate sodium (COLACE) 100 MG capsule Take 1 (one) capsule by mouth 2 times daily 90 capsule 1 04/10/2020 Active Additional Information Patient not taking.Reported on 05/31/2020 norethindrone (ORTHO MICRONOR; NOR-QD; TANNER; DOTTIE; ANJALI-BE; CYNTHIA; JOLIVETTE) 0.35 MG tablet Take 1 (one) tablet by mouth once daily 1 packet 2 04/10/2020 Active Additional Information Patient not taking.Reported on 05/31/2020 Drospirenone (SLYND) 4 MG TABS tabletIndications:[facility] feeding status of mother ([facility]),Encounter for BCP ( control pills) initial prescription Take 1 (one) tablet by mouth once daily 1 packet 11 05/31/2020 Active Active Problems Problem Noted Date Diagnosed Date Encounter for elective induction of labor 2020 GBS (group B Streptococcus c arrmaryse), +RV culture, currently 03/17/2020 Known anomaly, antepartum, fetus 2 020 Overview (02/05/2020): Hydroureters, bilateral. No hydronephrosis. Twin B Needs F/U COVID-19 affecting in second trimester 12/25/2019 Overview (02/05/2020): per pt report Cigarette smoker 10/05/2019 Overview (03/01/2020): Stopped smoking! Family history of colon cancer in father 020 Overview (10/05/2019): at 43 yr old. No genetic testing Obesity (BMI 30-39.9) 10/05/2019 Dichorionic diamniotic twin in first t rimester 09/11/2019 Overview (03/17/2020): Spontaneous A+/RI/NR/ND/HIV- GCT: 65 Tdap: offer at 28 wks - she will get at her work on 01/27/20 GBS: + Dating: L= 9w2d sono H/H/Plt: Genetic screening or testing: desires NIPT Pap: 2018 NILM Gc/Chl: UCx: Breast/Formula: Family Planning: Flu: Plan per MFM: 1. LDASA 162mg daily for preeclampsia reduction (Twins, Primip, increased BMI) 2. Cervical surveillance to begin in 4 wks with CNM 3. Anatomy exam in 8 wks with MFM visit 4. Stop smoking & partner too!! 5. Sequential screen today since the billing for her NIPT is unknown. She understands that the Sequential test is not as sensitive for detecting Down syndrome. 6. Early glucola (one hr) at 16 wks or so (twins, strong FH of DM and Increased BMI) 7. Serial growth US in the third trimester 8. surveillance beginning at 32 wks (frequency to be determined) 9. If not already delivered, deliver in her 38th wk 10. Watch for S/Sx of Preeclampsia, PTL. Surveillance discussed. Will revisit in third trimester. 11. Watch weight gain (total about +/-35 LB for twins with her BMI) 12. Extra folate Rx'd today as well. 13. PPE precautions given her work 14. Consider COVID antibody testing in 2-4 wks. Resolved Problems Problem Noted Date Diagnosed Date Resolved Date Smoker 09/11/2019 02/16/2020 Overview (02/16/2020): Stopped in December,! Immunizations Name Administration Dates Next Due INFLUENZA VACCINE 12/03/2019 MMR 04/09/2020() TDAP (7yrs+) 04/09/2020(Deferred: See Comments - Pt has already received),01/27/2020 Social History Tobacco Use Types Packs/Day Years [...] AM CDT Pulse 78 04/10/2020 12:12 AM SUPERINTENDENT LAUNDRY Temperature 35.6 C (96.1 F) 05/31/2020 10:12 AM CDT Respiratory Rate 18 04/10/2020 7:40 AM SUPERINTENDENT LAUNDRY Oxygen Saturation 99% 04/10/2020 7:40 AM SUPERINTENDENT LAUNDRY Inhaled Oxygen Concentration - - Weight 104.8 kg (231 lb) 05/31/2020 10:12 AM CDT Height 165.1 cm (5' 5 ) 05/31/2020 10:12 AM CDT Body Mass Index 38.44 05/31/2020 10:12 AM CDT Functional Status Functional Status Response Date of Assess ment Is person deaf or have serious hearing difficult y? No 04/07/2020 Is person blind or have serious difficulty seein g? No 04/07/2020 Does person have serious dif ficulty walking/climbing stairs? No 04/07/2020 Does person have difficulty dressing/bathing? No 04/07/2020 Does person have difficulty doing errands alone? No 04/07/2020 Cognitive Status Response Date of Assessm ent Does person have difficulty concentrating/remembering/making decisions? No 04/07/2020 Plan of Treatment Not on file Procedures Procedure Name Priority Date/Time Associated Diagnosis Comments HIV-1 HIV-2 ANTIBODY + HIV P24 AG PANEL Routine 09/10/2019 11:01 AM CDT Encounter for supervision of normal first in first trimester (HCC) from Last 3 Months or Most Recently Relevant to Health Maintenance Results * HIV-1 HIV-2 ANTIBODY + HIV P24 AG PANEL (09/10/2019 11:01 AM CDT) [facility] HIV Screen 4th Generation w Reflex NON-REACT [...] purpose. For additional information please refer to http://education.[employer].Find[employer]Best/faq/IEH879 (This link is being provided for informational/ educational purposes only.) The performance of this assay has not been clinically validated in patients less than 2 years old. Test Performed at: [facility] [address] [facility] [address] MICK OSTO DO,MPH Blood BLOOD SPECIMEN / Unknown 09/10/2019 11:01 AM CDT 09/10/2019 11:02 AM CDT Chacha Shantal [facility] - CHEMISTRY OR DERABLES [facility] [address] [place] [address] from Last 3 Months or Most Recently Relevant to Health Maintenance Advance Directives * Full Code (Latest Code Status on File) Date Activated Date Inactivated Comments 04/07/2020 9:28 PM 04/10/2020 4:34 PM Care Teams Water Reclamation Systems Operator Relationship Specialty Start Date End Date Bradford Philippe MD [address] [place] [address] PCP - General 10/05/19
--- OUTSIDE RECORDS SUMMARY | 2024-04-13 13:47 | XMS_ITS | Clinical Summary ---
Author Organization [employer] Address [address] [place] [address] Care Team Providers Care Rolling Up Machine Operator Name Role Phone Bradford Philippe MD Primary Care Provider [phone] Source Comments [employer] [facility] [employer],non-owned Affiliates and Associated Physician Practices is amultiple site organization consisting of ambulatory clinics and hospital sitesin [place], [place], [place] and [place]. This disclosure is being madepursuant to the Care Everywhere program and may not contain all information available regarding this patient. Last updated [email or web address] Allergies No known active allergies Medications * [...] on 05/31/2020 Drospirenone (SLYND) 4 MG TABS tabletIndications:[facility] feeding status of mother ([facility]),Encounter for BCP ( control pills) initial prescription [...] See Comments - Pt has already received),01/27/2020 Family History Medical History Relation Name Comments Cancer Father colorectal- pas sed 2 months after dx Cancer - Prostate Maternal Grandfather Cancer - Breast Maternal Grandmother Cancer - Lung Maternal Grandmother small cell Diabetes - Type 2 Mother Hypertension Mother Diabetes - Type 2 Paternal Grandfather Alzheimer's Disease Paternal Grandmother Dementia Paternal Grandmother Diabetes - Type 2 Paternal Grandmother Relation Name Status Comments Father Maternal Grandfather Maternal Grandmother Mother Paternal Grandfather Paternal Grandmother Social History Tobacco Use Types Packs/Day Years [...] AM CDT Pulse 78 04/10/2020 12:12 AM FILM AND VIDEO EDITOR Temperature 35.6 C (96.1 F) 05/31/2020 10:12 AM CDT Respiratory Rate 18 04/10/2020 7:40 AM FILM AND VIDEO EDITOR Oxygen Saturation 99% 04/10/2020 7:40 AM FILM AND VIDEO EDITOR Inhaled Oxygen Concentration - - Weight 104.8 kg (231 lb) 05/31/2020 10:12 AM CDT Height 165.1 cm (5' 5 ) 05/31/2020 10:12 AM CDT Body Mass Index 38.44 05/31/2020 10:12 AM CDT Plan of Treatment Health Maintenance Due Date Last Done Comments PAP SMEAR 1989 HEPATITIS C SCREENING 10/18/2007 HEPATITIS B VACCINE (1 of 3 - 19+ 3-dose series) 2008 COVID-19 VACCINE ( - 2023-2 5 season) 2023 INFLUENZA VACCINE (#1) 2023 12/03/2019 DEPRESSION SCREENING 02/19/2024 DTAP/TDAP/TD VACCINES (2 - T d or Tdap) 01/26/2030 01/27/2020 ZOSTER VACCINE (1 of 2) 10/23/2039 HIV SCREENING Completed 09/10/2019 HIB VACCINE Aged Out No longer eligi ble based on patient's age to complete this topic HPV VACCINE Aged Out No longer eligi ble based on patient's age to complete this topic MENINGOCOCCAL (Group B) VACCINE Aged Out No longer eligible based on patient's age to complete this topic MENINGOCOCCAL VACCINE Aged Out No river handy eligible based on patient's age to complete this topic PNEUMOCOCCAL VACCINE Aged Out No long er eligible based on patient's age to complete this topic Procedures Procedure Name Priority Date/Time Associated Diagnosis [...] Generation w Reflex NON-REACT HAILEY NON-REACT HAILEY Body Central Comment: HIV-1 antigen and HIV-1/HIV-2 antibodies were [...] purpose. For additional information please refer to http://education.[employer]/faq/CQF714 (This link is being provided for informational/ educational purposes only.) The performance of this assay has not been clinically validated in patients less than 2 years old. Test Performed at: [facility] [address] [place] [address] MICK SOTO DO,MPH Blood BLOOD SPECIMEN / Unknown 09/10/2019 11:01 AM CDT 09/10/2019 11:02 AM CDT Chacha Murguia APRN-[facility] LAB - CHEMISTRY OR DERABLES Performing Organization Address City/State/[facility] Co de Phone Number [facility] [phone] [place] [address] from Last 3 Months or Most Recently Relevant to Health Maintenance Advance Directives * Full Code (Latest Code Status on File) Date Activated Date Inactivated Comments 04/07/2020 9:28 PM 04/10/2020 4:34 PM Care Teams Rolling Up Machine Operator Relationship Specialty Start Date End Date Bradford Philippe MD [address] [place] [address] PCP - General 10/05/19
--- OUTSIDE RECORDS SUMMARY | 2024-04-13 13:47 | XMS_ITS | Clinical Summary ---
Author Organization [facility] Address [address] [place] [address] Care Team Providers Care Machine Specialist Name Role Phone Bradford Philippe MD Primary Care Provider [phone] Allergies No known active allergies Medications VIT-FE FUMARATE-FA OR Take 1 tablet by mouth daily. Active Social History Tobacco Use Types Packs/Day Years Used Date Smoking Tobacco: Never Assessed Comments No Sex and Gender Information Value Date Recorded Sex Assigned at Not on file Legal Sex Female 6:06 PM CDT Gender Identity Not on file Sexual Orientation Not on file Last Filed Vital Signs Vital Sign Reading Time Taken Comments Blood Pressure 110/62 09/28/2020 4:13 PM CDT Pulse 67 09/28/2020 4:13 PM CDT Temperature 36 C (96.8 F) 09/28/2020 4:13 PM CDT Respiratory Rate 18 09/28/2020 4:13 PM CDT Oxygen Saturation 100% 09/28/2020 4:13 PM CDT Inhaled Oxygen Concentration - - Weight 99.8 kg (220 lb) 09/28/2020 1:46 PM CDT Height 165.1 cm (5' 5 ) 09/28/2020 1:46 PM CDT Body Mass Index 36.61 09/28/2020 1:46 PM CDT Plan of Treatment Health Maintenance Due Date Last Done Comments Cervical Cancer Screening Pap Smear (Age 30 to 64) Every 3 Years 1989 Annual Physical 1992 Hepatitis C 10/23/2007 Hepatitis B Vaccines (1 of 3 - 19+ 3-dose series) 2008 Cervical Cancer Screening Pap with HPV Testing (Age 30 to 64) Every 5 Years 10/23/2019 Cervical Cancer Screening with HPV 10/23/2019 COVID-19 Vaccine (2023- season) 2023 Influenza Adult (#1) 2023 12/03/2019 DTaP, Tdap and Td Vaccines (2 - Td or Tdap) 01/26/2030 01/27/2020, 02/03/1991, 05/27/1990, Additional history exists HPV Vaccines Aged Out No longer eligi ble based on patient's age to complete this topic Meningococcal B Vaccine Aged Out No l onger eligible based on patient's age to complete this topic Meningococcal Vaccine Aged Out No river handy eligible based on patient's age to complete this topic Pneumococcal Vaccine: Pediatrics (0 to 5 Years) and At-Risk Patients (6 to 64 Years) Aged Out No longer eligible based on patient's age to complete this topic RSV Immunizations Under 20 Months Aged Out No longer eligible based on patient's age to complete this topic Insurance Care Teams Machine Specialist Relationship Specialty Start Date End Date Bradford Philippe MD [address] [address] PCP - General FAMILY PRACTICE 09/28/20
--- OUTSIDE RECORDS SUMMARY | 2024-04-13 13:47 | XMS_ITS | Encounter Summary ---
Author Organization [facility] Address [address] [place] [address] Care Team Providers Care Metal Refiner Name Role Phone Bradford Philippe MD Primary Care Provider [phone] Reason for Visit * Reason Onset Date Comments Forms 03/25/2020 Encounter Details Date Type Department Care Team (Late st Contact Info) Description 03/25/2020 Telephone [facility] [address] [place], [place] [id number] Pancho Barahona MD [address] [place], [place] [id number] Forms Social History Tobacco Use Types Packs/Day Years Used Date Smoking Tobacco: Former Cigarettes 0.5 10 Smokeless Tobacco: Never Alcohol Use Standard Drinks/Week Comments Not Currently [...] have received? Some college, no degree 10/05/2019 Comments Yes Sex and Gender Information Value Date Recorded Sex Assigned at Not on file Gender Identity Not on file Sexual Orientation Not on file documented as of this encounter Miscellaneous Notes * Telephone Encounter - Yessi Calderon - 03/25/2020 2:19 PM CST Patient is needing her FMLA paper work done, she is calling to see if it's ready. pt call back [phone] ANIMAL KEEPER documented in this encounter Plan of Treatment Not on file documented as of this encounter Visit Diagnoses Not on filedocumented in this encounter Care Teams Metal Refiner Relationship Specialty Start Date End Date Bradford Philippe MD [address] [place] [address] PCP - General 10/05/19 documented as of this encounter
--- OUTSIDE RECORDS SUMMARY | 2024-04-13 13:47 | XMS_ITS | Clinical Summary ---
Author Organization [facility] Address [address] [place] [phone] Phone Care Team Providers Care Necktie Turner Name Role Phone Unavailable Primary Care Provider Unavailabl e Medications Medication Sig Dispensed Refills Start Date End Date Status amphetamine-dextroamphe tamine XR (ADDERALL XR) 15 MG 24 hr capsule 1 tab/cap qday 0 08/09/2015 A ctive ALPRAZolam (XANAX) 0.25 MG tablet 1 tab/cap tid PRN 0 08/09/2015 Active L norgest/e.estradiol-e.e strad (SEASONIQUE) 0.15-0.03 &0.01 MG tablet 1 tab/cap qday 0 08/09/2015 Active Active Problems Problem Noted Date Diagnosed Date Other proteinuria 08/16/2015 Glycosuria 08/16/2015 Urinary tract infection 08/10/2015 Family History Medical History Relation Comments Malignant neoplastic disease Father Diabetes mellitus Mother Hypertensive disorder Mother Kidney disease Neg Hx Kidney stone Neg Hx Relation Status Comments Father Mother Social History Tobacco Use Types Packs/Day Years Used Date Smoking Tobacco: Never Assessed Sex and Gender Information Value Date Recorded Sex Assigned at Not on file Gender Identity Not on file Sexual Orientation Not on file Last Filed Vital Signs Vital Sign Reading Time Taken Comments Blood Pressure 110/68 09/07/2015 12:01 AM CDT Si tting, Right Pulse - - Temperature 36.1 C (97 F) 09/07/2015 12:01 AM CDT Respiratory Rate - - Oxygen Saturation - - Inhaled Oxygen Concentration - - Weight 99.3 kg (219 lb) 09/07/2015 12:01 AM CDT Height 165.1 cm (5' 5 ) 09/07/2015 12:01 AM CDT Body Mass Index 36.44 09/07/2015 12:01 AM CDT Plan of Treatment Not on file
== END 2024-04-13 13:16 | disposition home or self-care (01) ==
PROVIDERS: Emergency Provider Nurse Practitioner; PCP Family Medicine
DX: H66.92 Otitis media, unspecified, left ear (principal); H61.892 Other specified disorders of left external ear; F17.210 Nicotine dependence, cigarettes, uncomplicated; F98.8 Other specified behavioral and emotional disorders with onset usually occurring in childhood and adolescence
CPT/HCPCS: 99213; G0463

== ENCOUNTER 2024-05-22 12:24 | Outpatient (CLI) | payer OTHER, SELFPAY ==
--- OUTSIDE RECORDS SUMMARY | 2024-05-22 12:28 | XMS_ITS | Data Portability ---
Author Organization [facility] Address [address] [place] [address] Care Team Providers Care Telegraph Operator Name Role Phone MONISHA DEL TORO Primary [...] Abnormal Flag Note LastModifiedBy Organization Detail LastModifiedTime 07/01/19 24 07/01/2023 IMAGE GUIDE D PAP AND HPV REGAR [...] as clini sam alatorre nted. Not Available [facility] (Lab) [address], [place], [address], 07/04/2023 15:17:18 Result Notes None recorded. Procedures Surgical History Date Name Laterality Status Provider Name and Address Organization Details Recorded Time 09/25/19 24 SALPINGECTOMY, LAPAROSCOPIC (SURG) completed [facility] 09/25/2023 09:30:43 07/01/19 24 Date of Last Pap Smear completed [facility] 07/22/2023 09:58:09 04/01/19 20 completed [facility] 07/01/2023 11:47:17 04/01/19 20 Date of Last Colonoscopy completed [facility] 07/01/2023 11:47:17 02/18/19 08 Tonsillectomy completed [facility] 07/01/2023 11:50:26 Imaging Results None recorded. [...] Address Organization Details Last Updated DateTime 07/01/2023 480203.4 7 g 37.8 kg/m2 165.1 cm 113 mm[Hg] 76 mm[Hg] Sumi Joann [facility] 4 11:46:54 Date Recorded Body height Body mass index (BMI) Body weight Systolic blood pressure Diastolic blood pressure Provider Name and Address Organization Details Last Updated DateTime 07/22/2023 165.1 cm 37.4 kg/m2 495961.2 8 g 111 mm[Hg] 77 mm[Hg] Maryam Diamond [facility] 4 09:57:38 Date Recorded Body height Body mass index (BMI) Body weight Systolic blood pressure Diastolic blood pressure Provider Name and Address Organization Details Last Updated DateTime 10/03/2023 165.1 cm 35.9 kg/m2 87676.95 g 100 mm[Hg] 65 mm[Hg] Kiersten Woodson [facility] 4 14:51:22 Social History Question Answer Notes LastModified by Organizat ion Details LastModified Time Tobacco Smoking Status Current Every Day Smoker Sumi Joann [facility] 07/01/2023 11:50:16 What Is Your Level [...] Or The Highest Degree You Have Received? [id number] Information not available 07/01/2023 Are There Any [...] Anxious, Or Unable To Sleep At Night)? XI1027-0 Information not available 07/01/2023 Do You Use Any Illicit Or Recreational Drugs? No Information not available 07/01/2023 Do You Use Sunscreen Routinely? Yes Information not available 07/01/2023 Have You Used IV Drugs? No Information not available 07/01/2023 Sex: Unknown Functional Status Question Answer Note LastModified by Organizat ion Details LastModified Time Do you have difficulty walking or climbing stairs? No [email or web address] Information not available 07/22/2023 Are you able to walk? YESWOREST [email or web address] Information not available 07/01/2023 Are you able to care for yourself? Yes [email or web address] Information not available 07/22/2023 Do you have difficulty dressing or bathing? No [email or web address] Information not available 07/22/2023 What is your exercise level? Occasional Information not available 07/01/2023 Mental Status None recorded. Family History Relationship Description Onset Age of this Age Resolved Age Notes LastModified by Organization Details LastModified Time Mother Diabetes mellitus cox [email or web address] Not available 2023 11:47:05 Maternal Grandmother Malignant tumor of breast [email or web address] Not available 2023 11:47:05 Father Malignant tumor of colon [email or web address] Not available 2023 11:47:05 Medical [...] SNOMED-CT Code Diagnosis ICD10 Code Diagnosis Note [id number] KATELIN Perry [facility] [address] [address] 07/01/2023 11:33:54 07/01/2023 12:20:09 Gynecologic examination 82415210 Z01.419 WWEBC - condomspap updateddec lined STI [...] plan if desired. Contracept ion care management 653540618 Z30.9 All BC methods discussedd esires permeant sterlizati onID consult scheduled [id number] Tevin Bernal MD [facility] [address] [address] 07/22/2023 09:46:04 07/22/2023 10:50:33 Female sterilization 45160688 Z30.2 This patient presents for female sterilizat [...] will be scheduled. [id number] Tevin Bernal MD [facility] [address] [address] 10/03/2023 14:39:10 10/03/2023 15:08:47 Postoperative care 849770359 Z48.89 This patient is a 32-year-ol d [...] Anand Member ID Guarantor Name 07/01/2023 2 [facility] - DOS ON OR AFTER 20 (MEDICAID REPLACEMENT - HMO) Usha Orellana [id number] Usha Orellana 07/22/2023 2 [facility] - DOS ON OR AFTER 20 (MEDICAID REPLACEMENT - HMO) Usha Orellana [id number] Usha Orellana 10/03/2023 2 [facility] - DOS ON OR AFTER 20 (MEDICAID REPLACEMENT - HMO) Usha Orellana [id number] Usha Orellana 10/03/2023 1 [facility] [facility] [employer] (PPO) [facility] Lyle Oconnell [id number] Usha Orellana Notes Date Note Type Note [...] tobacco smoker KATELIN Perry [address], [place], [address], [facility] 07/01/2023 12:16:37 07/22/2023 text/html This patient [...] be scheduled. spent more than 40 minutes [id number]. More than 50% was counseling. We made a decision to perform surgery. Tevin Bernal MD [address], [place], [address], [facility] 07/22/2023 10:48:54 10/03/2023 text/html This patient is a 32-year-old female who presents for postop follow-up. She is 1 week postop from a laparoscopic bilatera Salpingectomy. Her incisions are clean dry and intact. She has no complaints. She is recovering normally. She will follow up as needed. Tevin Bernal MD [address], [place], [address], [facility] 10/03/2023 15:07:24 OBGyn Episode Ob Episode Information Episode Created Date Number of Fetuses Patient Bloodtype Patient rh Status Prepregnancy Weight lbs Domestic Partner Domestic Partner Phone Father Name Prosthodontist Status 07/01/19 24 1 CLOSED Fetus Data First Name Last Name Admitted to NICU Weight (g) Sex Living Outcome Pediatric Complications Fetus ID Race Codes Race Delivery Type Full Term [id number] Vaginal Delivery Everette Calculation Initial Everette Date [...]
--- OUTSIDE RECORDS SUMMARY | 2024-05-22 12:29 | XMS_ITS | Clinical Summary ---
Author Organization [facility] Address [address] [place] [address] Care Team Providers Care Bench Assembly Inspector Name Role Phone Bradford Philippe MD Primary Care Provider [phone] Source Comments [facility],non-owned Affiliates and Associated Physician Practices is amultiple site organization consisting of ambulatory clinics and hospital sitesin [place] and [place]. This disclosure is being madepursuant to the Care Everywhere program and may not contain all information available regarding this patient. Last updated 17.[employer] Allergies No known active allergies Medications * [...] on 05/31/2020 Drospirenone (SLYND) 4 MG TABS tabletIndications:[facility] status of mother ([facility]),Encounter for BCP ( control pills) initial [...] AM CDT Pulse 78 04/10/2020 12:12 AM DELIVERY MAN Temperature 35.6 C (96.1 F) 05/31/2020 10:12 AM CDT Respiratory Rate 18 04/10/2020 7:40 AM DELIVERY MAN Oxygen Saturation 99% 04/10/2020 7:40 AM DELIVERY MAN Inhaled Oxygen Concentration - - Weight 104.8 [...] to complete this topic MENINGOCOCCAL (Group B) VACC INE SHARED DECISION-MAKING Aged Out No longer eligibl e based on patient's age to complete this topic MENINGOCOCCAL GROUPS A/C/Y/W VACCINE Aged Out No longer eligible b ased on patient's age to complete this topic PNEUMOCOCCAL VACCINE Aged Out No long er eligible based on patient's age to complete this topic Procedures Procedure Name Priority Date/Time Associated Diagnosis Comments HIV-1 HIV-2 ANTIBODY + HIV P24 AG PANEL Routine 09/10/2019 11:01 AM CDT Encounter for supervision of normal first in first trimester from Last 3 Months or Most Recently Relevant to Health Maintenance Results * HIV-1 HIV-2 ANTIBODY + HIV P24 AG PANEL (09/10/2019 11:01 AM CDT) HIV Screen 4th Generation w Reflex NON-REACT HAILEY NON-REACT HAILEY [employer] Comment: HIV-1 antigen and HIV-1/HIV-2 antibodies were [...] purpose. For additional information please refer to http://education.Vquence/faq/FWU242 (This link is being provided for informational/ educational purposes only.) The performance of this assay has not been clinically validated in patients less than 2 years old. Test Performed at: [email or web address] [address] [place] [address] MICK SOTO DO,MPH Blood BLOOD SPECIMEN / Unknown 09/10/2019 11:01 AM CDT 09/10/2019 11:02 AM CDT Chacha Murguia [facility] - CHEMISTRY OR DERABLES Performing Organization Address City/State/[facility] Co de Phone Number [facility] [address] [place] [address] from Last 3 Months or Most Recently Relevant to Health Maintenance Advance Directives * Full Code (Latest Code Status on File) Date Activated Date Inactivated Comments 04/07/2020 9:28 PM 04/10/2020 4:34 PM Care Teams Bench Assembly Inspector Relationship Specialty Start Date End Date Bradford Philippe MD [address] [place] [address] PCP - General 10/05/19
--- OUTSIDE RECORDS SUMMARY | 2024-05-22 12:29 | XMS_ITS | Clinical Summary ---
Author Organization [facility] Address [address] [place] [id number] Phone Care Team Providers Care Fire Warden Name Role Phone Unavailable Primary Care Provider [...]
--- OUTSIDE RECORDS SUMMARY | 2024-05-22 12:29 | XMS_ITS | Clinical Summary ---
Author Organization [facility] Address [address] [place] [address] Care Team Providers Care Extruding Department Supervisor Name Role Phone Bradford Philippe MD Primary Care Provider [phone] Allergies No known active allergies Medications VIT-FE [...] to complete this topic Insurance Care Teams Extruding Department Supervisor Relationship Specialty Start Date End Date Bradford Philippe MD [address] [address] PCP - General FAMILY PRACTICE 09/28/20
--- OUTSIDE RECORDS SUMMARY | 2024-05-22 12:29 | XMS_ITS | Referral Summary ---
Author Organization [facility] [address] [facility] [address] [place] [address] Care Team Providers Care Oven Worker Name Role Phone Bradford Philippe MD Primary Care Provider Encounters Date Type Department Care Team Description 04/24/2024 8:20 PM POLE INSPECTOR - 04/24/2024 11:26 PM [facility] Emergency [facility] Emergency Department [facility] [place] [address] Harlan Villalba MD Esophagitis (Primary Dx) Discharge Disposition: Discharge to home or self care from Last 3 Months Allergies No known active allergies Medications omeprazole (PriLOSEC) 40 mg capsule Take 1 capsule (40 mg total) by mouth daily 30 capsule 5 05/25/19 25 Active omeprazole (PriLOSEC) 40 mg capsule Take 1 capsule (40 mg total) by mouth daily 30 capsule 5 04/25/19 25 Discontinued Social History Tobacco Use Types Packs/Day Years Used Date Smoking Tobacco: Never Assessed Alcohol Use Standard Drinks/Week Comments Not Currently 0 (1 standard drink = 0.6 oz pur e alcohol) Personal Safety Answer Date Recorded Have you ever been in or are you currently in a harmful physical or emotional relationship or is someone making you feel afraid or unsafe? Denies 04/24/2024 Comments Unknown Sex and Gender Information Value Date Recorded Sex Assigned at Not on file Legal Sex Female 11:46 PM POLE INSPECTOR Gender Identity Not on file Sexual Orientation Not on file Last Filed Vital Signs Vital Sign Reading Time Taken Comments Blood Pressure 109/72 04/24/2024 11:22 PM POLE INSPECTOR Pulse 74 04/24/2024 11:22 PM POLE INSPECTOR Temperature 36.7 C (98.1 F) 04/24/2024 6:20 PM POLE INSPECTOR Respiratory Rate 12 04/24/2024 11:22 PM POLE INSPECTOR Oxygen Saturation 98% 04/24/2024 11:22 PM POLE INSPECTOR Inhaled Oxygen Concentration - - Weight 106 kg (233 lb 11 oz) 04/24/2024 6:20 PM POLE INSPECTOR Height 165.1 cm (5' 5 ) 01/15/2013 9:00 PM POLE INSPECTOR Body Mass Index - - Plan of Treatment Not on file Procedures Procedure Name Priority Date/Time Associated Diagnosis Comments TROPONIN T HIGH-SENSITIVITY 4-HR Timed 04/24/2024 10:[address] CHEST PE W CONTRAST ED 9:33 PM POLE INSPECTOR TROPONIN T HIGH-SENSITIVITY 2-HOUR Timed 04/24/2024 8:27 PM POLE INSPECTOR POCT HCG, URINE Routine 04/24/2024 7:52 PM POLE INSPECTOR D-DIMER, QUANTITATIVE STAT 04/24/2024 7:20 PM POLE INSPECTOR XR CHEST 1 VIEW ED 04/24/2024 7:00 PM POLE INSPECTOR EGFR STAT 04/24/2024 6:29 PM POLE INSPECTOR DIFFERENTIAL AUTO STAT 04/24/2024 6:2 9 PM POLE INSPECTOR TROPONIN T HIGH-SENSITIVITY SERIES (BASELINE, 2HR, 4HR, 6HR) STAT 04/24/2024 6:29 PM POLE INSPECTOR COMPREHENSIVE METABOLIC PANEL STAT 04/24/2024 6:29 PM POLE INSPECTOR CBC WITH AUTO DIFFERENTIAL STAT 04/24/2024 6:29 PM POLE INSPECTOR ECG 12-LEAD STAT 04/24/2024 6:24 PM POLE INSPECTOR from Last 3 Months Results * Troponin T high-sensitivity 4-hour (04/24/2024 10:20 PM POLE INSPECTOR) Trop T hs <6 <=14 ng/L Comment: Interpretive Data For further hscTnT resources including the diagnostic algorithm and an aid in interpretation, copy and paste this link: https://nrl.testcatalog.org/show/hsTrop Current Interpretive Data last revised 2019. Testing performed by: [address] [address] Trop T hs delta 0 ng/L MELINDA Comment:Testing performed by : [address] [address] Trop T hs interp Insignificant MELINDA Comment:Testing performed by : [address] [address] Blood 04/24/2024 10:2 0 PM POLE INSPECTOR 04/24/2024 10:24 PM POLE INSPECTOR Harlan Villalba MD LAB BLOOD ORDERABLES F inal Result [facility] [address] [facility] Department [place] [address] * CT Chest PE (CTA) W Contrast (04/24/2024 9:33 PM POLE INSPECTOR) Anatomical Region Laterality Modality Body N/A Computed Tomogra phy 04/24/2024 10:0 3 PM POLE INSPECTOR Narrative 04/24/2024 10:20 PM POLE INSPECTOR EXAM DESCRIPTION: CT CHEST PE (CTA) W CONTRAST REASON FOR STUDY: Pulmonary embolism (PE) suspected, low to intermediate prob, positive D-dimer c/o chest pain that started yesterday. States yesterday the pain felt like indigestion and today the pain is worse. Describes pain as a 8/10 sharp pain that starts mid chest and radiates to right neck and back. Took several antacids with no relief. Also reports nausea, took zofran with minimal relief. TECHNIQUE: CT angiogram of the chest performed with intravenous contrast using helical scanning technique with dynamic intravenous contrast injection. Reconstructed coronal and sagittal MPR images reviewed. All images stored on PACS. 3D MIP images rendered on scanning unit and reviewed at time of interpretation. Automated exposure control was used as a dose optimization technique for this examination. CONTRAST TYPE/DOSE: 100mL of IOVERSOL 350 MG IODINE/ML INTRAVENOUS SYRINGE injected via intravenous COMPARISON: None FINDINGS: VASCULATURE: No identified pulmonary emboli. LUNGS: On image 46, there is a 4 mm noncalcified nodule within the right middle lobe and on image 47 there is another 4 mm none calcified nodule in the right middle lobe. There are scattered calcified granulomas. No airspace consolidation. PLEURA: No effusion. No pneumothorax. MEDIASTINUM/TRISTAN: No identified masses or abnormal nodes. The esophagus is diffusely thickened along its entire length, but particularly along its distal aspect. Additionally, there is fluid surrounding the distal esophagus in the posterior mediastinum, just above the gastroesophageal junction, measuring 2.7 cm x 1.8 cm by 4 cm located to the right of the distal esophagus and measuring 2 cm x 1.6 cm by 3.3 cm to the left of the distal esophagus. No gas is seen within the fluid collections, but given the thickened esophageal wall, the findings may reflect esophagitis with possible esophageal tear. Correlate clinically. HEART: Heart size is normal with no pericardial effusion. AXILLA: No adenopathy. CHEST WALL: No masses. No subcutaneous air. HARDWARE/LINES/TUBES: None. UPPER ABDOMEN: No significant abnormality. MUSCULOSKELETAL: No significant abnormality. OTHER: No significant abnormality. IMPRESSION: No CT evidence for pulmonary embolus. The esophagus is diffusely thickened along its entire length, but particularly along its distal aspect. Additionally, there is fluid surrounding the distal esophagus in the posterior mediastinum, just above the gastroesophageal junction, measuring 2.7 cm x 1.8 cm by 4 cm located to the right of the distal esophagus and measuring 2 cm x 1.6 cm by 3.3 cm to the left of the distal esophagus. No gas is seen within the fluid collections, but given the thickened esophageal wall, the findings may reflect esophagitis with possible esophageal tear. The findings were called to Dr. Craig at 10:20 p.m. on 04/24/2024. 4 mm noncalcified nodules within the right middle lobe. Recent guidelines by the Fleischner Society (Radiology 111337,2017) divides patient into low vs. high risk (for example, patients who smoke are considered high risk) and provides followup recommendations as follows: SOLITARY PULMONARY NODULE: Patients considered LOW RISK for lung cancer and a nodule less than 6 mm in diameter require no follow-up. In patients at a HIGHER RISK optional follow-up is in 1 year. MULTIPLE PULMONARY NODULES: Patients considered LOW RISK for lung cancer and multiple nodules less than 6 mm in diameter require no follow-up. In patients at a HIGHER RISK optional follow-up is in 1 year. Note: These recommendations do not apply to lung cancer screening, patients with immunosuppression, or patients with known primary cancer. http://pubs.rsna.org/doi/pdf/10.1148/radiol.9080778472 THIS IS AN ELECTRONICALLY VERIFIED FINAL REPORT 04/24/2024 10:20 PM - Electronically signed by Bryce Foster M.D. KT: BRIDGETTE Report ID: [id number] Reading Location: [place] [address] Procedure Note Bryce Foster MD - 04/24/2024 EXAM DESCRIPTION: CT CHEST PE (CTA) W CONTRAST REASON FOR STUDY: Pulmonary embolism (PE) suspected, low to intermediate prob, positive D-dimer c/o chest pain that started yesterday. States yesterday the pain felt like indigestion and today the pain is worse. Describes pain as a 8/10 sharppain that starts mid chest and radiates to right neck and back. Took several antacids with no relief. Also reports nausea, took zofran with minimal relief. TECHNIQUE: CT angiogram of the chest performed with intravenous contrastusing helical scanning technique with dynamic intravenous contrast injection. Reconstructed coronal and sagittal MPR images reviewed. All images storedon PACS. 3D MIP images rendered on scanning unit and reviewed at time of interpretation. Automated exposure control was used as a doseoptimization technique for this examination. CONTRAST TYPE/DOSE: 100mL of IOVERSOL 350 MG IODINE/ML INTRAVENOUSSYRINGE injected via intravenous COMPARISON: None FINDINGS: VASCULATURE: No identified pulmonary emboli. LUNGS: On image 46, there is a 4 mm noncalcified nodule within the right middle lobe and on image 47 there is another 4 mm none calcified nodule inthe right middle lobe. There are scattered calcified granulomas. Noairspace consolidation. PLEURA: No effusion. No pneumothorax. MEDIASTINUM/TRISTAN: No identified masses or abnormal nodes. Theesophagus is diffusely thickened along its entire length, but particularly along itsdistal aspect. Additionally, there is fluid surrounding the distal esophagus inthe posterior mediastinum, just above the gastroesophageal junction, measuring2.7 cm x 1.8 cm by 4 cm located to the right of the distal esophagus andmeasuring 2 cm x 1.6 cm by 3.3 cm to the left of the distal esophagus. No gas isseen within the fluid collections, but given the thickened esophageal wall, the findings may reflect esophagitis with possible esophageal tear. Correlate clinically. HEART: Heart size is normal with no pericardial effusion. AXILLA: No adenopathy. CHEST WALL: No masses. No subcutaneous air. HARDWARE/LINES/TUBES: None. UPPER ABDOMEN: No significant abnormality. MUSCULOSKELETAL: No significant abnormality. OTHER: No significant abnormality. IMPRESSION: No CT evidence for pulmonary embolus. The esophagus is diffusely thickened along its entire length, but particularly along its distal aspect. Additionally, there is fluidsurrounding the distal esophagus in the posterior mediastinum, just above the gastroesophageal junction, measuring 2.7 cm x 1.8 cm by 4 cm located tothe right of the distal esophagus and measuring 2 cm x 1.6 cm by 3.3 cm to the left of the distal esophagus. No gas is seen within the fluid collections,but given the thickened esophageal wall, the findings may reflect esophagitiswith possible esophageal tear. The findings were called to Dr. Craig at10:20 p.m. on 04/24/2024. 4 mm noncalcified nodules within the right middle lobe. Recent guidelines by the Fleischner Society (Radiology 389779,2017)divides patient into low vs. high risk (for example, patients who smoke areconsidered high risk) and provides followup recommendations as follows: SOLITARY PULMONARY NODULE: Patients considered LOW RISK for lung cancerand a nodule less than 6 mm in diameter require no follow-up. In patients at a HIGHER RISK optional follow-up is in 1 year. MULTIPLE PULMONARY NODULES: Patients considered LOW RISK for lung cancerand multiple nodules less than 6 mm in diameter require no follow-up. Inpatients at a HIGHER RISK optional follow-up is in 1 year. Note: These recommendations do not apply to lung cancer screening,patients with immunosuppression, or patients with known primary cancer. http://pubs.rsna.org/doi/pdf/10.1148/radiol.8194962123 THIS IS AN ELECTRONICALLY VERIFIED FINAL REPORT 04/24/2024 10:20 PM - Electronically signed by Bryce Foster M.D. KT: KT Report ID: [id number] Reading Location: [place] [address] us Keira SHERIFF IMProsper CT PROCEDURES Final Result * Troponin T high-sensitivity 2-hour (04/24/2024 8:27 PM POLE INSPECTOR) [facility] Trop T hs <6 <=14 ng/L Comment: Interpretive Data For further hscTnT resources including the diagnostic algorithm and an aid in interpretation, copy and paste this link: https://nrl.testcatalog.org/show/hsTrop Current Interpretive Data last revised 2019. Testing performed by: [address] [address] Trop T hs delta 0 ng/L MELINDA Comment:Testing performed by : [address] [address] Trop T hs interp Insignificant MELINDA Comment:Testing performed by : [address] [address] Blood 04/24/2024 8:27 PM POLE INSPECTOR 04/24/2024 8:32 PM POLE INSPECTOR Harlan Villalba MD LAB BLOOD ORDERABLES F inal Result [facility] [address] [facility] Department [place] [address] * POCT hCG, urine (04/24/2024 7:52 PM POLE INSPECTOR) Pathologist [facility] HCG, ur, POC Negative Negative Lot Number [id number] QC Backgroud Clear Acceptable QC Control Line Acceptable Urine 04/24/2024 7:52 PM POLE INSPECTOR us Keira SHERIFF POINT OF CARE TEST ORDERABLES F inal Result * (ABNORMAL) D-dimer, quantitative (04/24/2024 7:20 PM POLE INSPECTOR) D-Dimer 3,470(H) <=499 ng/mL FEU Comment: Interpretive data FDA approved the D-dimer, in conjunction with a low or moderate pretest probability score, to exclude venous thromboembolic events (VTE) (PE and DVT) in outpatients when the D-dimer result is < 500 ng/ml FEU. Evidence supports using an age-adjusted D-dimer cut-off for outpatients older than 50 (age x 10) to improve specificity without sacrificing sensitivity. Example: age 68, VTE cut-off 680 ng/ml FEU. References; Yesica HT et al. Brit Med J. 2013;346:f2492. Pat et al. Annals Int Med. 2015;163:701-11. Current interpretive data was last revised on 2019. Testing performed by: [facility], [address] [place] [address]., [address] Blood 04/24/2024 7:20 PM POLE INSPECTOR 04/24/2024 7:32 PM POLE INSPECTOR us Keira SHERIFF LAB BLOOD ORDERABLES Final Resu lt [facility] [address] [facility] Department [place] [address] * XR Chest 1 Vw Portable (if patient condition/safety warrant portable) (04/24/2024 7:00 PM POLE INSPECTOR) Anatomical Region Laterality Modality Body, Chest N/A Computed Radiogr aphy 04/24/2024 7:13 PM POLE INSPECTOR Narrative 04/24/2024 7:14 PM POLE INSPECTOR EXAM DESCRIPTION: XR CHEST 1 VIEW REASON FOR STUDY: chest pain Patient c/o chest pain that started yesterday. States yesterday the pain felt like indigestion and today the pain is worse. Describes pain as a 8/10 sharp pain that starts mid chest and radiates to right neck and back. Took several antacids with no relief. Also reports nausea, took zofran with minimal relief TECHNIQUE: Frontal radiographic view(s) of the chest. COMPARISON: None available. FINDINGS: There is no focal pneumonic consolidation, pleural effusion or pneumothorax. The heart is nonenlarged. The osseous structures without gross acute abnormality. IMPRESSION: No focal pneumonic consolidation. THIS IS AN ELECTRONICALLY VERIFIED FINAL REPORT 04/24/2024 7:14 PM - Electronically signed by Alli Quintero D.O. AP: AP Report ID: [id number] Reading Location: [id number] Procedure Note Alli Quintero, DO - 04/24/2024 EXAM DESCRIPTION: XR CHEST 1 VIEW REASON FOR STUDY: chest pain Patient c/o chest pain that started yesterday. States yesterday the painfelt like indigestion and today the pain is worse. Describes pain as a 8/10sharp pain that starts mid chest and radiates to right neck and back. Tookseveral antacids with no relief. Also reports nausea, took zofran with minimal relief TECHNIQUE: Frontal radiographic view(s) of the chest. COMPARISON: None available. FINDINGS: There is no focal pneumonic consolidation, pleural effusion or pneumothorax. The heart is nonenlarged. The osseous structures withoutgross acute abnormality. IMPRESSION: No focal pneumonic consolidation. THIS IS AN ELECTRONICALLY VERIFIED FINAL REPORT 04/24/2024 7:14 PM - Electronically signed by Alli Quintero D.O. AP: AP Report ID: [id number] Reading Location: [id number] us Harlan Villalba MD IMG XR PROCEDURES Doire l Result * Troponin T high-sensitivity series (baseline, 2hr, 4hr, 6hr) (04/24/2024 6:29 PM POLE INSPECTOR) Trop T hs <6 <=14 ng/L Comment: Interpretive Data For further hscTnT resources including the diagnostic algorithm and an aid in interpretation, copy and paste this link: https://nrl.testcatalog.org/show/hsTrop Current Interpretive Data last revised 2019. Testing performed by: [facility], [address] [place] [address]., [address] Blood 04/24/2024 6:29 PM POLE INSPECTOR 04/24/2024 6:36 PM POLE INSPECTOR us Harlan Villalba MD LAB BLOOD ORDERABLES F inal Result [facility] [address] [facility] Department [place] [address] * eGFR (04/24/2024 6:29 PM POLE INSPECTOR) Pathologist [facility] eGFR >90 >=60 mL/min/1. 73 m2 Comment: Interpretive Data Reference Interval Normal >/= 90 mL/min/1.73m2 Mildly decreased* 60 - 89 mL/min/1.73m2 Mildly to moderately decreased 45 - 59 mL/min/1.73m2 Moderately to severely decreased 30 - 44 mL/min/1.73m2 Severely decreased 15 - 29 mL/min/1.73m2 Kidney Failure < 15 mL/min/1.73m2 *Relative to young adult level Estimated glomerular filtration rate is determined by the 2020 CKD-EPI equation recommended by the National Kidney Foundation (A Unifying Approach to GFR Estimation: Recommendations of the NKF-ASK Task Force on Reassessing the Inclusion of Race in Diagnosing Kidney Disease, JASN 2020). The CKD-EPI equation should not be used for patients with unstable renal function and has not been validated in children and those over 70. Current interpretive data was last reviewed 2020. Testing performed by: [facility], [address] [place] [address]., [address] Blood 04/24/2024 6:29 PM POLE INSPECTOR 04/24/2024 6:36 PM POLE INSPECTOR us Harlan Villalba MD LAB BLOOD ORDERABLES F inal Result [facility] [address] [facility] Department [place] [address] * Differential, auto (04/24/2024 6:29 PM POLE INSPECTOR) Neutrophil abs 6.2 1.5 - 6.5 K/cumm Comment:Testing performed by : [address] [address] Imm gran abs 0.0 0.0 - 0.1 K/cumm MELINDA Comment:Testing performed by : [address] [address] Lymphocyte abs 3.1 0.8 - 3.3 K/cumm MELINDA Comment:Testing performed by : [address] [address] Monocyte abs 0.4 0.2 - 0.8 K/cumm MELINDA Comment:Testing performed by : [address] [address] Eosinophil abs 0.1 0.0 - 0.5 K/cumm [facility] Comment:Testing performed by : [address] [address] Basophil abs 0.0 0.0 - 0.1 K/cumm [facility] Comment:Testing performed by : [address] [address] Neutrophil pct 62.6 % [facility] Comment: Interpretive Data Percent cell count reference ranges are not reported, since discordance with absolute values may lead to misinterpretation of CBC data. Current Interpretive Data was last revised on 2017. Testing performed by: [address] [address] Imm gran pct 0.3 % MELINDA Comment: Interpretive Data Percent cell count reference ranges are not reported, since discordance with absolute values may lead to misinterpretation of CBC data. Current Interpretive Data was last revised on 2017. Testing performed by: [address] [address] Lymphocyte pct 31.4 % MELINDA Comment: Interpretive Data Percent cell count reference ranges are not reported, since discordance with absolute values may lead to misinterpretation of CBC data. Current Interpretive Data was last revised on 2017. Testing performed by: [address] [address] Monocyte pct 4.4 % MELINDA Comment: Interpretive Data Percent cell count reference ranges are not reported, since discordance with absolute values may lead to misinterpretation of CBC data. Current Interpretive Data was last revised on 2017. Testing performed by: [address] [address] Eosinophil pct 1.1 % MELINDA Comment: Interpretive Data Percent cell count reference ranges are not reported, since discordance with absolute values may lead to misinterpretation of CBC data. Current Interpretive Data was last revised on 2017. Testing performed by: [address] [address] Basophil pct 0.2 % MELINDA Comment: Interpretive Data Percent cell count reference ranges are not reported, since discordance with absolute values may lead to misinterpretation of CBC data. Current Interpretive Data was last revised on 2017. Testing performed by: [address] [address] Blood 04/24/2024 6:29 PM POLE INSPECTOR 04/24/2024 6:36 PM POLE INSPECTOR us Harlan Villalba MD LAB BLOOD ORDERABLES F inal Result [facility] [address] [facility] Department [place] [address] * (ABNORMAL) CBC with auto differential (04/24/2024 6:29 PM POLE INSPECTOR) WBC 9.8 3.8 - 9.9 K/cumm Comment:Testing performed by : [address] [address] Hgb 11.8(L) 11.9 - 15.5 g/dL MELINDA Comment:Testing performed by : [address] [place]., [address] Hct 35.3(L) 35.6 - 45.5 % MELINDA Comment:Testing performed by : [address], [address] Plt 279 150 - 400 K/cumm MELINDA Comment:Testing performed by : [address], [address] MPV 10.4 9.1 - 12.3 fL MELINDA Comment:Testing performed by : [address], [address] RBC 3.94 3.90 - 5.20 M/cumm MELINDA Comment:Testing performed by : [address], [address] MCV 89.6 81.3 - 96.4 fL MELINDA Comment:Testing performed by : [address], [address] MCH 29.9 27.1 - 33.3 pg MELINDA Comment:Testing performed by : [address], [address] MCHC 33.4 32.3 - 35.7 g/dL MELINDA Comment:Testing performed by : [address], [address] RDW CV 13.0 11.1 - 14.9 % MELINDA Comment:Testing performed by : [address], [address] RDW SD 42.9 35.7 - 48.1 fL MELINDA Comment:Testing performed by : [address], [address] NRBC abs 0.00 0.00 - 0.01 K/cumm MELINDA Comment:Testing performed by : [address], [address] Blood Venous blood specimen / Unknown 04/24/2024 6:29 PM POLE INSPECTOR 04/24/2024 6:36 PM POLE INSPECTOR us Harlan Villalba MD LAB BLOOD ORDERABLES F inal Result [facility] [address] [facility] Department [place] [address] * (ABNORMAL) Comprehensive metabolic panel (04/24/2024 6:29 PM POLE INSPECTOR) Sodium 142 135 - 145 mmol/L Comment:Testing performed by : [facility], [address] [place] [address]., [address] Potassium, pl 3.5 3.3 - 4.9 mmol/L MELINDA Comment:Testing performed by : [address], [place]., [address] Chloride 105 97 - 110 mmol/L MELINDA Comment:Testing performed by : [address] [address] CO2 27 22 - 32 mmol/L MELINDA Comment:Testing performed by : [address], [place]., [address] Anion gap 10 2 - 15 mmol/L MELINDA Comment:Testing performed by : [address] [address] BUN 11 6 - 25 mg/dL MELINDA Comment:Testing performed by : [address] [address] Creatinine 0.58(L) 0.60 - 1.10 mg/dL MELINDA Comment:Testing performed by : [address] [address] Glucose 90 70 - 199 mg/dL MELINDA Comment: Interpretive Data Fasting glucose >/= 126 mg/dl is diagnostic for diabetes. Fasting is defined as no caloric intake for at least 8 hours. Fasting glucose between 100 mg/dl to 125 mg/dl is diagnostic of prediabetes. In a patient with classic symptoms of hyperglycemia or hyperglycemic crisis, a random glucose >/= 200 mg/dl is diagnostic for diabetes. In the absence of unequivocal hyperglycemia, results should be confirmed by repeat testing. The classification and Diagnosis of Diabetes Diabetes Care 2021; 46: S19-S40. Current interpretive data was last revised 2022. Testing performed by: [address], [place]., [address] Calcium 10.0 8.5 - 10.3 mg/dL MELINDA Comment:Testing performed by : [facility], [address] [place] [address]., [address] Bilirubin, total 0.2 0.1 - 1.2 mg/dL MELINDA Comment:Testing performed by : [address] [address] Protein, pl 6.1(L) 6.5 - 8.5 g/dL MELINDA Comment:Testing performed by : [address] [address] Albumin 3.6 3.5 - 5.0 g/dL MELINDA Comment:Testing performed by : [address], [address] Alk phos 47 40 - 130 Units/L MELINDA Comment:Testing performed by : [address] [address] ALT 11 7 - 45 Units/L MELINDA Comment:Testing performed by : [address] [address] AST 12 10 - 45 Units/L MELINDA Comment:Testing performed by : [address], [address] Blood 04/24/2024 6:29 PM POLE INSPECTOR 04/24/2024 6:36 PM POLE INSPECTOR us Harlan Villalba MD LAB BLOOD ORDERABLES F inal Result Performing Organization Address City/State/[facility] Co de Phone Number [facility] [address] [facility] Department of Laboratories [place], [place] [id number] * ECG 12 lead (04/24/2024 6:24 PM POLE INSPECTOR) Ventricular Rate EKG/Min 76 BPM [facility] Atrial Rate 76 BPM [facility] WY-Interval (MSEC) 126 ms [facility] QRS-Interval (MSEC) 82 ms [facility] QT-Interval (MSEC) 370 ms [facility] QTc 416 ms [facility] P Albia 27 degrees [facility] R Albia 18 degrees [facility] T Albia 12 degrees [facility] Diagnosis Normal sinus rhythm Low voltage QRS Cannot rule out Anterior infarct , age undetermined Abnormal ECG No previous ECGs available Confirmed by MIKA FRANCO M.D. ([id number]) on 04/25/2024 7:56:29 AM [facility] 04/24/2024 6:24 PM POLE INSPECTOR 04/25/2024 7:56 AM POLE INSPECTOR us Harlan Villalba MD ECG ORDERABLES Final Result [facility] [place] from Last 3 Months Insurance [employer] SIG GRV01 [facility] Care Teams Oven Worker Relationship Specialty Start Date End Date Bradford Philippe MD [address] [place] [address] PCP - General Family Medicine 04/24/24
--- OUTSIDE RECORDS SUMMARY | 2024-05-22 12:29 | XMS_ITS | Clinical Summary ---
Author Organization [facility] [address] Address [address] [place] [address] [address] [place] [address] Care Team Providers Care Baseball Winder Name Role Phone Bradford Philippe MD Primary Care Provider [phone] Allergies No known active allergies Medications omeprazole (PriLOSEC) 40 mg capsule Take 1 capsule (40 mg total) by mouth daily 30 capsule 5 05/25/19 25 Active omeprazole (PriLOSEC) 40 mg capsule Take 1 capsule (40 mg total) by mouth daily 30 capsule 5 04/25/19 25 Discontinued Encounters Date Type Department Care Team Description 04/24/2024 8:20 PM [facility] - 04/24/2024 11:26 PM [facility] Emergency Department [address] [place] [id number] Harlan Villalba MD Esophagitis (Primary Dx) Discharge Disposition: Discharge to home or self care from Last 3 Months Surgical History Surgery Date Site/Laterality Comments TUBAL LIGATION Social History Tobacco Use Types Packs/Day Years [...] on file Legal Sex Female 11:46 PM ULTRASONIC HAND SOLDERER Gender Identity Not on file Sexual Orientation Not on file Obstetrics History Last Filed Vital Signs Vital Sign Reading Time Taken Comments Blood Pressure 109/72 04/24/2024 11:22 PM ULTRASONIC HAND SOLDERER Pulse 74 04/24/2024 11:22 PM ULTRASONIC HAND SOLDERER Temperature 36.7 C (98.1 F) 04/24/2024 6:20 PM ULTRASONIC HAND SOLDERER Respiratory Rate 12 04/24/2024 11:22 PM ULTRASONIC HAND SOLDERER Oxygen Saturation 98% 04/24/2024 11:22 PM ULTRASONIC HAND SOLDERER Inhaled Oxygen Concentration - - Weight 106 kg (233 lb 11 oz) 04/24/2024 6:20 PM ULTRASONIC HAND SOLDERER Height 165.1 cm (5' 5 ) 01/15/2013 9:00 PM ULTRASONIC HAND SOLDERER Body Mass Index - - Plan of Treatment Health Maintenance Due Date Last Done Comments Cervical Cancer Screening 1989 Depression Screening 1989 Hepatitis C Screening 1989 Varicella Vaccines (1 of 2 - 13+ 2-dose series) 2002 Hepatitis B Screening 10/23/2007 Regular Well Visit/Exam 18-64 10/23/2007 Influenza Vaccine (Season Ended) 2024 12/03/2019 DTaP/Tdap/Td Vaccine (6 - Td or Tdap) 01/26/2030 01/27/2020, 02/03/1991, 05/27/1990, Additional history exists HPV Vaccines Aged Out No longer eligi ble based on patient's age to complete this topic Pneumococcal vaccine <65 Aged Out No longer eligible based on patient's age to complete this topic Procedures Procedure Name Priority Date/Time Associated Diagnosis Comments TROPONIN T HIGH-SENSITIVITY 4-HR Timed 04/24/2024 10:20 PM [address]IC HAND [employer] CT CHEST PE W CONTRAST ED 9:33 PM ULTRASONIC HAND SOLDERER TROPONIN T HIGH-SENSITIVITY 2-HOUR Timed 04/24/2024 8:27 PM ULTRASONIC HAND SOLDERER POCT HCG, URINE Routine 04/24/2024 7:52 PM ULTRASONIC HAND SOLDERER D-DIMER, QUANTITATIVE STAT 04/24/2024 7:20 PM ULTRASONIC HAND SOLDERER XR CHEST 1 VIEW ED 04/24/2024 7:00 PM ULTRASONIC HAND SOLDERER EGFR STAT 04/24/2024 6:29 PM ULTRASONIC HAND SOLDERER DIFFERENTIAL AUTO STAT 04/24/2024 6:2 9 PM ULTRASONIC HAND SOLDERER TROPONIN T HIGH-SENSITIVITY SERIES (BASELINE, 2HR, 4HR, 6HR) STAT 04/24/2024 6:29 PM ULTRASONIC HAND SOLDERER COMPREHENSIVE METABOLIC PANEL STAT 04/24/2024 6:29 PM ULTRASONIC HAND SOLDERER CBC WITH AUTO DIFFERENTIAL STAT 04/24/2024 6:29 PM ULTRASONIC HAND SOLDERER ECG 12-LEAD STAT 04/24/2024 6:24 PM ULTRASONIC HAND SOLDERER from Last 3 Months Results * Troponin T high-sensitivity 4-hour (04/24/2024 10:20 PM ULTRASONIC HAND SOLDERER) Trop T hs <6 <=14 ng/L Comment: Interpretive Data For further hscTnT resources including the diagnostic algorithm and an aid in interpretation, copy and paste this link: https://nrl.testcatalog.org/show/hsTrop Current Interpretive Data last revised 2019. Testing performed by: [address] [address] Trop T hs delta 0 ng/L MELINDA GAR Comment:Testing performed by : [address] [address] Trop T hs interp Insignificant MELINDA GAR Comment:Testing performed by : [address] [address] Blood 04/24/2024 10:2 0 PM ULTRASONIC HAND SOLDERER 04/24/2024 10:24 PM ULTRASONIC HAND SOLDERER us Harlan Villalba MD LAB BLOOD ORDERABLES F inal Result MELINDA GAR [address] [facility] Department [place] [address] * CT Chest PE (CTA) W Contrast (04/24/2024 9:33 PM ULTRASONIC HAND SOLDERER) Anatomical Region Laterality Modality Body N/A Computed Tomogra phy 04/24/2024 10:0 3 PM ULTRASONIC HAND SOLDERER Narrative 04/24/2024 10:20 PM ULTRASONIC HAND SOLDERER EXAM DESCRIPTION: CT CHEST PE (CTA) W [...] Recent guidelines by the Fleischner Society (Radiology 142340,2017) divides patient into low vs. high risk [...] immunosuppression, or patients with known primary cancer. http://pubs.rsna.org/doi/pdf/10.1148/radiol.6115090215 THIS IS AN ELECTRONICALLY VERIFIED FINAL REPORT 04/24/2024 10:20 PM - Electronically signed by Bryce Foster M.D. KT: BRIDGETTE Report ID: [id number] Reading Location: [id number] Procedure Note Bryce Foster MD - 04/24/2024 [...] Recent guidelines by the Fleischner Society (Radiology 189343,2017)divides patient into low vs. high risk (for [...] immunosuppression, or patients with known primary cancer. http://pubs.rsna.org/doi/pdf/10.1148/radiol.7346699103 THIS IS AN ELECTRONICALLY VERIFIED FINAL REPORT 04/24/2024 10:20 PM - Electronically signed by Bryce Foster M.D. KT: BRIDGETTE Report ID: [id number] Reading Location: [place] [address] PROCEDURES Final Result * Troponin T high-sensitivity 2-hour (04/24/2024 8:27 PM ULTRASONIC HAND SOLDERER) Trop T hs <6 <=14 ng/L Comment: Interpretive Data For further hscTnT resources including the diagnostic algorithm and an aid in interpretation, copy and paste this link: https://nrl.testcatalog.org/show/hsTrop Current Interpretive Data last revised 2019. Testing performed by: [address] [address] Trop T hs delta 0 ng/L MELINDA GAR Comment:Testing performed by : [address] [address] Trop T hs interp Insignificant MELINDA GAR Comment:Testing performed by : [address] [place]., [address] Blood 04/24/2024 8:27 PM ULTRASONIC HAND SOLDERER 04/24/2024 8:32 PM ULTRASONIC HAND SOLDERER Harlan Villalba MD LAB BLOOD ORDERABLES F inal Result [facility]ERT[facility] [address] [facility] Department [place] [address] * POCT hCG, urine (04/24/2024 7:52 PM ULTRASONIC HAND SOLDERER) HCG, ur, POC Negative Negative Lot Number [id number] QC Backgroud Clear Acceptable QC Control Line Acceptable Urine 04/24/2024 7:52 PM ULTRASONIC HAND SOLDERER Keira SHERIFF POINT OF CARE TEST ORDERABLES F inal Result * (ABNORMAL) D-dimer, quantitative (04/24/2024 7:20 PM ULTRASONIC HAND SOLDERER) D-Dimer 3,470(H) <=499 ng/mL FEU Comment: Interpretive [...] 68, VTE cut-off 680 ng/ml FEU. References; Schouten HT et al. Brit Med J. 2013;346:f2492. Pat et al. Annals Int Med. 2015;163:701-11. Current interpretive data was last revised on 2019. Testing performed by: [facility], [address] [place] [address]., [address] Blood 04/24/2024 7:20 PM ULTRASONIC HAND SOLDERER 04/24/2024 7:32 PM ULTRASONIC HAND SOLDERER Keira SHERIFF LAB BLOOD ORDERABLES Final Resu lt MELINDA MH [address] [facility] Department [place] [address] * XR Chest 1 Vw Portable (if patient condition/safety warrant portable) (04/24/2024 7:00 PM ULTRASONIC HAND SOLDERER) Anatomical Region Laterality Modality Body, Chest N/A Computed Radiogr aphy 04/24/2024 7:13 PM ULTRASONIC HAND SOLDERER Narrative 04/24/2024 7:14 PM ULTRASONIC HAND SOLDERER EXAM DESCRIPTION: XR CHEST 1 VIEW REASON [...] Alli Quintero D.O. AP: AP Report ID: [id number] Reading Location: [id number] Procedure Note Alli Quintero, DO - 04/24/2024 [...] Alli Quintero D.O. AP: AP Report ID: [id number] Reading Location: [id number] us Harlan Villalba MD IMG XR PROCEDURES Dorie l Result * Troponin T high-sensitivity series (baseline, 2hr, 4hr, 6hr) (04/24/2024 6:29 PM ULTRASONIC HAND SOLDERER) Trop T hs <6 <=14 ng/L Comment: Interpretive Data For further hscTnT resources including the diagnostic algorithm and an aid in interpretation, copy and paste this link: https://nrl.testcatalog.org/show/hsTrop Current Interpretive Data last revised 2019. Testing performed by: [facility], [address] [place] [address]., [address] Blood 04/24/2024 6:29 PM ULTRASONIC HAND SOLDERER 04/24/2024 6:36 PM ULTRASONIC HAND SOLDERER us Harlan Villalba MD LAB BLOOD ORDERABLES F inal Result [facility] [address] [facility] Department [place] [address] * eGFR (04/24/2024 6:29 PM ULTRASONIC HAND SOLDERER) eGFR >90 >=60 mL/min/1. 73 m2 Comment: [...] was last reviewed 2020. Testing performed by: [address] [address] Blood 04/24/2024 6:29 PM ULTRASONIC HAND SOLDERER 04/24/2024 6:36 PM ULTRASONIC HAND SOLDERER us Harlan Villalba MD LAB BLOOD ORDERABLES F inal Result [place] [address] [facility] Department [place] [address] * Differential, auto (04/24/2024 6:29 PM ULTRASONIC HAND SOLDERER) Neutrophil abs 6.2 1.5 - 6.5 K/cumm Comment:Testing performed by : [address] [address] Imm gran abs 0.0 0.0 - 0.1 K/cumm MELINDA Comment:Testing performed by : [address] [address] Lymphocyte abs 3.1 0.8 - 3.3 K/cumm MELINDA Comment:Testing performed by : [address] [address] Monocyte abs 0.4 0.2 - 0.8 K/cumm MELINDA Comment:Testing performed by : [address] [address] Eosinophil abs 0.1 0.0 - 0.5 K/cumm MELINDA Comment:Testing performed by : [address] [address] Basophil abs 0.0 0.0 - 0.1 K/cumm MELINDA Comment:Testing performed by : [address] [address] Neutrophil pct 62.6 % [facility] Comment: Interpretive Data Percent cell count reference ranges are not reported, since discordance with absolute values may lead to misinterpretation of CBC data. Current Interpretive Data was last revised on 2017. Testing performed by: [address] [address] Imm gran pct 0.3 % [facility] Comment: Interpretive Data Percent cell count reference ranges are not reported, since discordance with absolute values may lead to misinterpretation of CBC data. Current Interpretive Data was last revised on 2017. Testing performed by: [address] [address] Lymphocyte pct 31.4 % [facility] Comment: Interpretive Data Percent cell count reference ranges are not reported, since discordance with absolute values may lead to misinterpretation of CBC data. Current Interpretive Data was last revised on 2017. Testing performed by: [address] [address] Monocyte pct 4.4 % [facility] Comment: Interpretive Data Percent cell count reference ranges are not reported, since discordance with absolute values may lead to misinterpretation of CBC data. Current Interpretive Data was last revised on 2017. Testing performed by: [address] [address] Eosinophil pct 1.1 % [facility] Comment: Interpretive Data Percent cell count reference ranges are not reported, since discordance with absolute values may lead to misinterpretation of CBC data. Current Interpretive Data was last revised on 2017. Testing performed by: [address] [address] Basophil pct 0.2 % [facility] Comment: Interpretive Data Percent cell count reference ranges are not reported, since discordance with absolute values may lead to misinterpretation of CBC data. Current Interpretive Data was last revised on 2017. Testing performed by: [address] [address] Blood 04/24/2024 6:29 PM ULTRASONIC HAND SOLDERER 04/24/2024 6:36 PM ULTRASONIC HAND SOLDERER us Harlan Villalba MD LAB BLOOD ORDERABLES F inal Result [facility] [address] [facility] Department [place] [address] * (ABNORMAL) CBC with auto differential (04/24/2024 6:29 PM ULTRASONIC HAND SOLDERER) WBC 9.8 3.8 - 9.9 K/cumm Comment:Testing performed by : [address] [address] Hgb 11.8(L) 11.9 - 15.5 g/dL MELINDA Comment:Testing performed by : [address] [address] Hct 35.3(L) 35.6 - 45.5 % MELINDA Comment:Testing performed by : [address] [address] Plt 279 150 - 400 K/cumm MELINDA Comment:Testing performed by : [address] [address] MPV 10.4 9.1 - 12.3 fL MELINDA Comment:Testing performed by : [address] [address] RBC 3.94 3.90 - 5.20 M/cumm MELINDA Comment:Testing performed by : [address] [address] MCV 89.6 81.3 - 96.4 fL MELINDA Comment:Testing performed by : [address] [address] MCH 29.9 27.1 - 33.3 pg MELINDA Comment:Testing performed by : [address] [address] MCHC 33.4 32.3 - 35.7 g/dL MELINDA Comment:Testing performed by : [address] [address] RDW CV 13.0 11.1 - 14.9 % MELINDA Comment:Testing performed by : [address] [address] RDW SD 42.9 35.7 - 48.1 fL MELINDA GAR Comment:Testing performed by : [address] [address] NRBC abs 0.00 0.00 - 0.01 K/cumm MELINDA GAR Comment:Testing performed by : [address] [address] Blood Venous blood specimen / Unknown 04/24/2024 6:29 PM ULTRASONIC HAND SOLDERER 04/24/2024 6:36 PM ULTRASONIC HAND SOLDERER us Harlan Villalba MD LAB BLOOD ORDERABLES F inal Result [facility] Department [place] [address] * (ABNORMAL) Comprehensive metabolic panel (04/24/2024 6:29 PM ULTRASONIC HAND SOLDERER) Sodium 142 135 - 145 mmol/L Comment:Testing performed by : [address] [address] Potassium, pl 3.5 3.3 - 4.9 mmol/L MELINDA GAR Comment:Testing performed by : [address] [address] Chloride 105 97 - 110 mmol/L MELINDA GAR Comment:Testing performed by : [address] [address] CO2 27 22 - 32 mmol/L MELINDA GAR Comment:Testing performed by : [address] [address] Anion gap 10 2 - 15 mmol/L MELINDA GAR Comment:Testing performed by : [address] [address] BUN 11 6 - 25 mg/dL MELINDA GAR Comment:Testing performed by : [address] [address] Creatinine 0.58(L) 0.60 - 1.10 mg/dL MELINDA GAR Comment:Testing performed by : [address] [address] Glucose 90 70 - 199 mg/dL MELINDA [...] was last revised 2022. Testing performed by: [address] [address] Calcium 10.0 8.5 - 10.3 mg/dL MELINDA Comment:Testing performed by : [address] [address] Bilirubin, total 0.2 0.1 - 1.2 mg/dL [facility] Comment:Testing performed by : [address] [address] Protein, pl 6.1(L) 6.5 - 8.5 g/dL [facility] Comment:Testing performed by : [address] [address] Albumin 3.6 3.5 - 5.0 g/dL [facility] Comment:Testing performed by : [address] [address] Alk phos 47 40 - 130 Units/L [facility] Comment:Testing performed by : [address] [address] ALT 11 7 - 45 Units/L MELINDA Comment:Testing performed by : [address] [address] AST 12 10 - 45 Units/L MELINDA Comment:Testing performed by : [address] [address] Blood 04/24/2024 6:29 PM ULTRASONIC HAND SOLDERER 04/24/2024 6:36 PM ULTRASONIC HAND SOLDERER us Harlan Villalba MD LAB BLOOD ORDERABLES F inal Result [facility]DA [facility] Department [place] [address] * ECG 12 lead (04/24/2024 6:24 PM ULTRASONIC HAND SOLDERER) Pathologist [facility] Ventricular Rate EKG/Min 76 BPM [facility] Atrial Rate 76 BPM [facility] NE-Interval (MSEC) 126 ms [facility] QRS-Interval (MSEC) 82 ms [facility] QT-Interval (MSEC) 370 ms [facility] QTc 416 ms [facility] P [place] 27 degrees [facility] R [place] 18 degrees [facility] T [place] 12 degrees [facility] Diagnosis Normal sinus rhythm Low voltage QRS Cannot rule out Anterior infarct , age undetermined Abnormal ECG No previous ECGs available Confirmed by MIKA FRANCO M.D. ([id number]) on 04/25/2024 7:56:29 AM [facility] 04/24/2024 6:24 PM ULTRASONIC HAND SOLDERER 04/25/2024 7:56 AM ULTRASONIC HAND SOLDERER us Harlan Villalba MD ECG ORDERABLES Final Result Performing Organization Address City/[facility] Co de Phone Number [facility] from Last 3 Months Insurance [employer] SIG [id number] [facility] Care Teams Baseball Winder Relationship Specialty Start Date End Date Bradford Philippe MD [address] [place] [address] PCP - General Family Medicine 04/24/24
--- OUTSIDE RECORDS SUMMARY | 2024-05-22 12:29 | XMS_ITS | Encounter Summary ---
Author Organization [facility] Health Address [address] [facility] [place] [address] Care Team Providers Care Car Jockey Name Role Phone Bradford Philippe MD Primary Care Provider [phone] Reason for Visit * Reason Onset Date Comments Forms/questionnaires 03/25/2020 Encounter Details Date Type Department Care Team (Late st Contact Info) Description 03/25/2020 Telephone [facility] [address] [place] [address] Pancho Barahona MD [address] [place], [place] [id number] Forms/questionnaires Social History Tobacco Use Types Packs/Day Years [...] the money to buy more. Never true 08/17/20 20 Within the past 12 months, t [...] encounter Miscellaneous Notes * Telephone Encounter - Kvng, Yessi - 03/25/2020 2:19 PM CST Patient is needing her FMLA paper work done, she is calling to see if it's ready. pt call back [phone] L WORD PROCESSOR documented in this encounter Plan of Treatment Not on file documented as of this encounter Visit Diagnoses Not on filedocumented in this encounter Care Teams Car Jockey Relationship Specialty Start Date End Date Bradford Philippe MD [address] [place] [address] PCP - General 10/05/19 documented as of this encounter
[2024-05-22 13:37] LABS: Basophils Percent Auto 0.3 % (0.2-1.2); Eosinophils Absolute Auto 0.2 K/mm3 (0-0.3); Eosinophils Percent Auto 2.7 % (0-4.4); Hematocrit 38.2 % (37.0-47.0); Immature Granulocyte Absolute 0.02 K/mm3 (0.00-0.031); Immature Granulocyte Percent A 0.3 % (0-0.5); Lymphocytes Percent Auto 30.4 % (18.3-44.2); Mean Corpuscular HGB Conc 31.4 g/dl (32-36); Mean Corpuscular Hemoglobin 28.9 pg (26-34); Mean Platelet Volume 10.7 fl (7.4-10.4); Monocytes Absolute Auto 0.4 K/mm3 (0.1-0.6); Monocytes Percent Auto 5.3 % (2.6-8.5); Platelet Count Result 256 k/mm3 (150-375); Red Blood Count 4.15 M/mm3 (4.2-5.4); Red Cell Distribution Width 12.8 % (11.5-14.5); White Blood Count 6.6 K/mm3 (4.5-10.0)
[2024-05-22 14:27] LABS: Iron 103 ug/dL (37-170)
[2024-05-22 14:39] LABS: Percent Iron Saturation 27 % (20-50)
[2024-05-25 15:33] LABS: ANA Cascade Screen NEGATIVE (NEGATIVE)
== END 2024-05-22 12:25 | disposition home or self-care (01) ==
PROVIDERS: PCP Family Medicine; Visit Provider Physician Assistant Medical
DX: D64.9 Anemia, unspecified (principal); R21 Rash and other nonspecific skin eruption
CPT/HCPCS: 36415; 83516; 83540; 83550; 85025; 86038; 86225; 86235

== ENCOUNTER 2024-06-23 00:24 | Day surgery (SDC) | payer OTHER, SELFPAY ==
[2024-06-10 10:12] VITALS: BMI 37.5
--- OUTSIDE RECORDS SUMMARY | 2024-06-23 00:27 | XMS_ITS | Encounter Summary ---
Author Organization [facility] Health Address [address] [place] [address] Care Team Providers Care Jockey Room Custodian Name Role Phone Bradford Philippe MD Primary Care Provider [phone] Reason for Visit * Reason Onset Date Comments Forms/questionnaires 03/25/2020 Encounter Details Date Type Department Care Team (Late st Contact Info) Description 03/25/2020 Telephone [facility] [address] [place] [address] Pancho Barahona MD [address] [place], [place] [id number] Forms/questionnaires Social History Tobacco Use Types Packs/Day [...] at Not on file Legal Sex Female 6:32 PM SOURCING ENGINEER Gender Identity Not on file Sexual Orientation Not on file 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 pt call back [phone] CING ENGINEER documented in this encounter Plan of Treatment Not on file documented as of this encounter Visit Diagnoses Not on filedocumented in this encounter Care Teams Jockey Room Custodian Relationship Specialty Start Date End Date Bradford Philippe MD [address] [place] [address] PCP - General 10/05/19 documented as of this encounter
--- OUTSIDE RECORDS SUMMARY | 2024-06-23 00:27 | XMS_ITS | Data Portability ---
Author Organization [facility] Address [address] [place] [address] Care Team Providers Care Check Writer Salesperson Name Role Phone MONISHA DEL TORO Primary Care Provider [phone] Assessment Encounter Date Assessment Date Assessment LastModified [...] as clini sam alatorre nted. Not Available [facility] (Lab) [address], [place], [address], 07/04/2023 15:17:18 Result Notes None recorded. Procedures Surgical History Date Name Laterality Status Provider Name and Address Organization Details Recorded Time 09/25/19 24 SALPINGECTOMY, LAPAROSCOPIC (SURG) completed [facility] 09/25/2023 09:30:43 07/01/19 24 Date of Last Pap Smear completed [facility] 07/22/2023 09:58:09 04/01/19 20 completed [facility] 07/01/2023 11:47:17 04/01/19 20 Date of Last Colonoscopy completed [facility] 07/01/2023 11:47:17 02/18/19 08 Tonsillectomy completed [facility] 07/01/2023 11:50:26 Imaging Results None [...] Address Organization Details Last Updated DateTime 07/01/2023 792140.4 7 g 37.8 kg/m2 165.1 cm 113 mm[Hg] 76 mm[Hg] Sumi Joann [facility] 4 11:46:54 Date Recorded Body height Body mass index (BMI) Body weight Systolic blood pressure Diastolic blood pressure Provider Name and Address Organization Details Last Updated DateTime 07/22/2023 165.1 cm 37.4 kg/m2 709881.2 8 g 111 mm[Hg] 77 mm[Hg] Maryam Diamond [facility] 4 09:57:38 Date Recorded Body height Body mass index (BMI) Body weight Systolic blood pressure Diastolic blood pressure Provider Name and Address Organization Details Last Updated DateTime 10/03/2023 165.1 cm 35.9 kg/m2 72719.95 g 100 mm[Hg] 65 mm[Hg] Kiersten Woodson [facility] 4 14:51:22 Social History Question Answer Notes LastModified by Organizat ion Details LastModified Time Tobacco Smoking Status Current Every Day Smoker Sumi [place] [facility] 07/01/2023 11:50:16 What Is Your Level [...] Or The Highest Degree You Have Received? [id number] Information not available 07/01/2023 Are There Any [...] Anxious, Or Unable To Sleep At Night)? [id number] Information not available 07/01/2023 Do You Use Any Illicit Or Recreational Drugs? No Information not available 07/01/2023 Do You Use Sunscreen Routinely? Yes Information not available 07/01/2023 Have You Used IV Drugs? No Information not available 07/01/2023 Sex: Unknown Functional Status Question Answer Note LastModified by Organizat ion Details LastModified Time Do you have difficulty walking or climbing stairs? No [email or web address] Information not available 07/22/2023 Are you able to walk? YESWOREST [email or web address] Information not available 07/01/2023 Are you able to care for yourself? Yes [email or web address] Information not available 07/22/2023 Do you have difficulty dressing or bathing? No Information not available 07/22/2023 What is your exercise level? Occasional Information not available 07/01/2023 Mental Status None recorded. Family History Relationship Description Onset Age of this Age Resolved Age Notes LastModified by Organization Details LastModified Time Mother [email or web address] Not available 2023 11:47:05 Maternal Grandmother Malignant tumor of breast [facility] Not available 2023 11:47:05 Father Malignant tumor of colon [facility] Not available 2023 11:47:05 Medical History Condition [...] SNOMED-CT Code Diagnosis ICD10 Code Diagnosis Note [id number] KATELIN Perry [place] [address] [address] 07/01/2023 11:33:54 07/01/2023 12:20:09 Gynecologic examination 44012285 Z01.419 WWEBC - condomspap updateddec lined STI [...] plan if desired. Contracept ion care management 200238434 Z30.9 All BC methods discussedd esires permeant sterlizati onME consult scheduled [id number] Tevin Bernal MD [place] [address] [address] 07/22/2023 09:46:04 07/22/2023 10:50:33 Female sterilization 54156212 Z30.2 This patient presents for female sterilizat [...] will be scheduled. [id number] Tevin Bernal MD [place] [address] [address] 10/03/2023 14:39:10 10/03/2023 15:08:47 Postoperative care [id number] Z48.89 This patient is a 32-year-ol d [...] Anand Member ID Guarantor Name 07/01/2023 2 [facility] - DOS ON OR AFTER 20 (MEDICAID REPLACEMENT - HMO) Usha Orellana [id number] Usha Orellana 07/22/2023 2 [facility] - DOS ON OR AFTER 20 (MEDICAID REPLACEMENT - HMO) Usha Orellana [id number] Usha Orellana 10/03/2023 2 [facility] - DOS ON OR AFTER 20 (MEDICAID REPLACEMENT - HMO) Usha Orellana [id number] Usha Orellana 10/03/2023 1 [employer] (PPO) [facility] Lyle Oconnell [id number] Usha Orellana Notes Date Note Type Note [...] tobacco smoker KATELIN Perry [address], [place], [address], [facility] 07/01/2023 12:16:37 07/22/2023 text/html [...] be scheduled. spent more than 40 minutes [id number]. More than 50% was counseling. We made a decision to perform surgery. Tevin Bernal MD [address], [place], [address], [facility] 07/22/2023 10:48:54 10/03/2023 text/html This patient is a 32-year-old female who presents for postop follow-up. She is 1 week postop from a laparoscopic bilatera Salpingectomy. Her incisions are clean dry and intact. She has no complaints. She is recovering normally. She will follow up as needed. Tevin Bernal MD [address], [place], [address], [facility] 10/03/2023 15:07:24 OBGyn Episode Ob Episode Information Episode Created Date Number of Fetuses Patient Bloodtype Patient rh Status Prepregnancy Weight lbs Domestic Partner Domestic Partner Phone Father Name [employer] Development Manager Status 07/01/19 24 1 CLOSED Fetus Data First Name Last Name Admitted to NICU Weight (g) Sex Living Outcome Pediatric Complications Fetus ID Race Codes Race Delivery Type Full Term [id number] Vaginal Delivery Everette Calculation Initial Everette Date [...]
--- OUTSIDE RECORDS SUMMARY | 2024-06-23 00:27 | XMS_ITS | Clinical Summary ---
Author Organization [facility] Address [address] [place] [address] Care Team Providers Care Retail Administrative Assistant Name Role Phone Bradford Philippe MD Primary Care Provider [phone] Allergies No known active allergies Medications VIT-FE [...] HPV 10/23/2019 COVID-19 Vaccine (2023- season) 2023 DTaP, Tdap and Td Vaccines (2 - [...] 5 Years) and At-Risk Patients (6 to 49 Years) Aged Out No longer eligible based on patient's age to complete this topic RSV Immunizations Under 20 Months Aged Out No longer eligible based on patient's age to complete this topic Insurance [facility] Care Teams Retail Administrative Assistant Relationship Specialty Start Date End Date Bradford Philippe MD [address] [place] [address] PCP - General FAMILY PRACTICE 09/28/20
--- OUTSIDE RECORDS SUMMARY | 2024-06-23 00:27 | XMS_ITS | Clinical Summary ---
Author Organization [employer] Address [address] [place] [address] Care Team Providers Care Systems Accountant Name Role Phone Bradford Philippe MD Primary Care Provider [phone] Source Comments [employer] [employer],non-owned Affiliates and Associated Physician Practices is amultiple site organization consisting of ambulatory clinics and hospital sitesin [place], [place], [place] and [place]. This disclosure is being madepursuant to the Care Everywhere program and may not contain all information available regarding this patient. Last updated 17.[employer] Allergies No known active allergies Medications * Be aware that medications may not be up to date on this document. Alwaysverify current medications with the patient. Vit-Fe Fumarate-FA ( PO)Indications:Enco unter for supervision of normal first in first trimester (HCC) Take 1 tablet by mouth once daily Active aspirin (ASPIRIN) 81 MG chew tablet Take 2 tablets by mouth once daily 60 tablet 5 10/09/19 20 Active Additional Information Patient not taking.Reported on 05/31/2020 Folic Acid (FOLATE PO) Take 1 tablet by mouth once daily Active ferrous sulfate 325 (65 FE) MG tabletIndications:A nemia affecting in third trimester (HCC) Take 1 tablet by mouth once daily 30 tablet 5 01/27/20 20 Active Additional Information Patient not taking.Reported on 05/31/2020 iron polysaccharides (NIFEREX 150) 150 MG capsule Take 1 (one) capsule by mouth once daily 60 capsule 4 04/10/19 21 Active Additional Information Patient not taking.Reported on 05/31/2020 docusate sodium (COLACE) 100 MG capsule Take 1 (one) capsule by mouth 2 times daily as needed for Constipation (relief of difficult bowel movements) 100 capsule 1 04/10/19 Active Additional Information Patient not taking.Reported on 05/31/2020 polyethylene glycol 3350 (MIRALAX) 17 g packet Take 17 (seventeen) g by mouth once daily as needed for Constipation 170 g 3 04/10/19 Active Additional Information Patient not taking.Reported on 05/31/2020 acetaminophen (TYLENOL) 325 MG tablet Take 2 (two) tablets by mouth every 6 hours as needed for Fever or Pain Maximum allowable Acetaminophen amount = 4 Grams (4000 mg) / 24 hours. 100 tablet 04/10/19 Active Additional Information Patient not taking.Reported on 05/31/2020 ibuprofen (MOTRIN) 600 MG tablet Take 1 (one) tablet by mouth every 6 hours as needed for Pain 90 tablet 04/10/19 Active docusate sodium (COLACE) 100 MG capsule Take 1 (one) capsule by mouth 2 times daily 90 capsule 1 04/10/19 Active Additional Information Patient not taking.Reported on 05/31/2020 norethindrone (ORTHO MICRONOR; NOR-QD; TANNER; DOTTIE; ANJALI-BE; CYNTHIA; JOLIVETTE) 0.35 MG tablet Take 1 (one) tablet by mouth once daily 1 packet 2 04/10/19 Active Additional Information Patient not taking.Reported on 05/31/2020 Drospirenone (SLYND) 4 MG TABS tabletIndications:B reast feeding status of mother ([facility]),Encounter for BCP ( control pills) initial prescription Take 1 (one) tablet by mouth once daily 1 packet 11 06/01/19 Active Active Problems Problem Noted Date Diagnosed Date Encounter for elective induction of labor 2020 GBS (group B Streptococcus c suzette), +RV culture, currently 03/17/2020 Known anomaly, antepartum, [...] 02/16/2020 Overview (02/16/2020): Stopped in December,! Immunizations Immunization Administration Dates Next Due INFLUENZA VACCINE 12/03/2019 [...] received? 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 Not on file Not on file Not on marvin e Last Filed Vital Signs Vital Sign Reading Time Taken Comments Blood Pressure 118/76 05/31/2020 10:12 AM CDT Pulse 78 04/10/2020 12:12 AM [employer] WE[employer] DEVELOPER Temperature 35.6 C (96.1 F) 05/31/2020 10:12 AM CDT Respiratory Rate 18 04/10/2020 7:40 AM [employer] WE[employer] DEVELOPER Oxygen Saturation 99% 04/10/2020 7:40 AM [employer] DEVELOPER Inhaled Oxygen Concentration - - Weight 104.8 kg (231 lb) 05/31/2020 10:12 AM CDT Height 165.1 cm (5' 5 ) 05/31/2020 10:12 AM CDT Body Mass Index 38.44 05/31/2020 10:12 AM CDT Plan of Treatment Health Maintenance Due Date Last Done Comments PAP SMEAR 1989 HEPATITIS C SCREENING 10/18/2007 HEPATITIS B VACCINE (1 of 3 - 19+ 3-dose series) 2008 COVID-19 VACCINE (2023-2 5 season) 2023 DEPRESSION SCREENING 02/19/2024 INFLUENZA VACCINE (Season Ended) 2024 12/03/19 20 DTAP/TDAP/TD VACCINES (2 - T d or [...] Generation w Reflex NON-REACT HAILEY NON-REACT HAILEY [employer] Comment: HIV-1 antigen and HIV-1/HIV-2 antibodies [...] purpose. For additional information please refer to http://education.Iotelligent/faq/VFR564 (This link is being provided for informational/ educational purposes only.) The performance of this assay has not been clinically validated in patients less than 2 years old. Test Performed at: [facility] [address] [place] [address] MICK SOTO DO,MPH Blood BLOOD SPECIMEN / Unknown 09/10/2019 11:01 AM CDT 09/10/2019 11:02 AM CDT Chacha Murguia [facility] - CHEMISTRY ORDERABLES Final Result [facility] [id number] [place] [address] from Last 3 Months or Most Recently Relevant to Health Maintenance Insurance COUNT INCLUDES THE [facility] SELF PAY NO INSURANCE Member Subscriber Plan / Payer (Ef fective for All Dates) Name:Barbara Orellana Member ID:Not on file Relation to Subscriber:Not on file Name:BARBARA ORELLANA Subscriber ID:Not on file (Home) Address: [address] [place] [address] Payer ID:Not on file Group ID:Not on file Type:Self Pay Address: [place], [place] Advance Directives * Full Code (Latest Code Status on File) Date Activated Date Inactivated Comments 04/07/2020 9:28 PM 04/10/2020 4:34 PM Care Teams Systems Accountant Relationship Specialty Start Date End Date Bradford Philippe MD [address] [place] [address] PCP - General 10/05/19
--- OUTSIDE RECORDS SUMMARY | 2024-06-23 00:27 | XMS_ITS | Clinical Summary ---
Author Organization [facility] Address [address] [place] [address] Phone Care Team Providers Care Reiki Practitioner Name Role Phone Unavailable Primary Care Provider Unavailabl e Medications amphetamine-dext roamphetamine XR (ADDERALL XR) 15 MG 24 hr capsule 1 tab/cap qday 0 08/09/2015 Active ALPRAZolam (XANAX) 0.25 MG tablet 1 tab/cap tid PRN 0 08/09/2015 Active L norgest/e.estrad iol-e.estrad (SEASONIQUE) 0.15-0.03 &0.01 MG tablet 1 tab/cap [...] Used Date Smoking Tobacco: Never Assessed Comments Unknown Sex and Gender Information Value Date Recorded Sex Assigned at Not on file Legal Sex Female 9:47 AM [facility] Gender Identity Not on file Sexual Orientation [...]
--- NOTE | 2024-06-23 11:16 | P.PNAN_ITS ---
Anes - Initial Pre Proc Eval Procedure: Operation Date: 06/23/24 14:30 Proposed Procedures p Esophagogastroduodenoscopy & Colonoscopy - Norman Garrido MD Date/Time: 06/23/24 11:16 Surgeon: Norman Garrido MD Pre Op Diagnosis: Esophagitis, unspecified without bleeding Patient Data Age: 33 Gender: F Height: 1.65 m Weight: 102.3 kg Allergies Allergy/AdvReac Type Severity Reaction Status Date / Time No Known Allergies Allergy Verified 06/10/24 10:11 Home Medications ?Medication ?Instructions ?Recorded ?Confirmed ?Type omeprazole 40 mg capsule,delayed 40 mg PO BID #60 caps 05/07/24 06/10/24 Rx release ondansetron HCl 8 mg tablet 8 mg PO Q8H #20 tabs 05/07/24 06/10/24 Rx dextroamphetamine-amphetamine 10 20 mg (2 x 10 mg) PO BID #90 tabs 06/08/24 06/10/24 Rx mg tablet (Adderall) Patient hx anesthesia problems: none Family hx anesthesia problems: none Results Review: All pre-operative results and documents have been reviewed as part of the pre- operative evaluation. [facility] Past Medical History Medical History Abnormal urine Abnormal weight gain Anxiety and depression Attention deficit disorder Body mass index [BMI] 39.0-39.9, adult (05/13/15) Cough Cysts of left eye, unspecified eyelid Dietary counseling and surveillance (02/09/15) Encounter for screening for diseases of the blood and blood-forming organs and certain disorders involving the immune mechanism Encounter for screening for other metabolic disorders Generalized abdominal pain Glucose found in urine on examination Major depressive disorder, single episode, unspecified Milia of eyelids of both eyes Nausea Recurrent UTI Right upper quadrant pain Routine physical examination Screening for lipid disorders Screening for thyroid disorder Left leg swelling Family history of colon cancer in father Smoker Family History Family History Father Carcinoma of colon Mother Hypertension Family history of type 2 diabetes mellitus Sibling No problems noted. Social History Social History Smoking packs per day: 0.5 Smoking cigarettes per day: 10.0 Years smoked: 6 Smoking pack-years: 3.00 Smoking status: Current some day smoker Tobacco type: cigarettes Second hand tobacco smoke exposure: Yes Alcohol intake: current Substance use: never Substance use type: does not use Do You Feel Safe in your Home?: Yes Lack of Transportation: No Lack of Food: Never True Concerned About Future Housing: No Difficulty Paying Gas/Electric Bills: No Difficulty Paying for Meds: No Currently Unemployed: No Education: Trade/Vocational Certificate Difficulty w/ Childcare or Family Care: No Living arrangements: with family Occupation/Education: occupation 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 Informed Consent: The patient's anesthetic plan and its attendant risks and benefits were discussed with the patient/family/POA. Questions were solicited and answers provided to the satisfaction of the patient/family/POA.
[2024-06-23 11:19] VITALS: BP 143/58; PULSE 79; RESP 19; TEMP 36.2; O2SAT 100
[2024-06-23] MEDS: LACTATED RINGERS 1,000 ML 150 ML IV CONT (11:36)
--- NOTE | 2024-06-23 12:22 | PM.HPGS ---
History of Present Illness History of Present Illness Consent: Risks, benefits, and alternatives have been discussed and questions answered. Patient agrees to proceed with procedure. Chief complaint: Esophagitis, unspecified without bleeding Narrative: Usha Orellana is a 33 year old female witg h/o gerd on omeprazole here for first egd, also colon polyp in 2019, father had colon cancer Review of Systems Review of Systems: All systems reviewed & are unremarkable except as noted in HPI and below PMFSH Past Medical History Medical History GERD (gastroesophageal reflux disease) Abnormal urine Abnormal weight gain Anxiety and depression Attention deficit disorder Body mass index [BMI] 39.0-39.9, adult (05/13/15) Cough Cysts of left eye, unspecified eyelid Dietary counseling and surveillance (02/09/15) Encounter for screening for diseases of the blood and blood-forming organs and certain disorders involving the immune mechanism Encounter for screening for other metabolic disorders Generalized abdominal pain Glucose found in urine on examination Major depressive disorder, single episode, unspecified Milia of eyelids of both eyes Nausea Recurrent UTI Right upper quadrant pain Routine physical examination Screening for lipid disorders Screening for thyroid disorder Left leg swelling Family history of colon cancer in father Smoker Family History Family History Father Carcinoma of colon Mother Hypertension Family history of type 2 diabetes mellitus Sibling No problems noted. Social History Social History Smoking packs per day: 0.5 Smoking cigarettes per day: 10.0 Years smoked: 6 Smoking pack-years: 3.00 Smoking status: Current some day smoker Tobacco type: cigarettes Second hand tobacco smoke exposure: Yes Alcohol intake: current Substance use: never Substance use type: does not use Do You Feel Safe in your Home?: Yes Lack of Transportation: No Lack of Food: Never True Concerned About Future Housing: No Difficulty Paying Gas/Electric Bills: No Difficulty Paying for Meds: No Currently Unemployed: No Education: Trade/Vocational Certificate Difficulty w/ Childcare or Family Care: No Living arrangements: with family Occupation/Education: occupation 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 Gender identity (if verbalized by the patient): Female Spiritual care concerns: No Meds Home Medications and Allergies Home Medications ?Medication ?Instructions ?Recorded ?Confirmed ?Type omeprazole 40 mg capsule,delayed 40 mg PO BID #60 caps 05/07/24 06/23/24 Rx release ondansetron HCl 8 mg tablet 8 mg PO Q8H #20 tabs 05/07/24 06/23/24 Rx dextroamphetamine-amphetamine 10 20 mg (2 x 10 mg) PO BID #90 tabs 06/08/24 06/23/24 Rx mg tablet (Adderall) Allergies Allergy/AdvReac Type Severity Reaction Status Date / Time No Known Allergies Allergy Verified 06/23/24 11:18 Vital Signs Vital Signs - 24 hr 06/23/24 11:19 Temperature 97.2 F L Pulse Rate 79 Respiratory Rate 19 Blood Pressure 143/58 H Pulse Oximetry 100 Oxygen Delivery Room Air Exam Const: General: comfortable and no acute distress HENMT: Face/Nose/Sinus: Normal nares present Eyes: General: appearance normal, both eyes and all related structures Neck: Neck: no JVD Resp: Auscultation: clear to auscultation bilaterally Cardio: Rate: regular rate Rhythm: regular rhythm GI: Inspection: non-distended GI Palp: Yes Soft to palpation Skin: General skin exam: normal color Neuro: General: gait normal Speech: normal speech Extrem: General: normal to inspection Psych: Mental Status: mental status grossly normal Assessment and Plan Assessment and plan (1) Family history of colon cancer in father: Code(s): Z80.0 - Family history of malignant neoplasm of digestive organs Status: Acute Assessment and Plan: colonoscopy (2) GERD (gastroesophageal reflux disease): Code(s): K21.9 - Gastro-esophageal reflux disease without esophagitis Status: Acute Assessment and Plan: egd
--- NOTE | 2024-06-23 12:32 | SUR.OPER ---
EGD:[id number] COLON: 1240-
[2024-06-23 12:52] VITALS: BP 109/60; PULSE 76; RESP 16; O2SAT 100
[2024-06-23 13:02] VITALS: BP 121/74; PULSE 76; RESP 18; O2SAT 100
[2024-06-23 13:12] VITALS: BP 112/63; PULSE 77; RESP 20; O2SAT 100
== END 2024-06-23 13:33 | disposition home or self-care (01) ==
PROVIDERS: PCP Family Medicine; Visit Provider Internal Medicine Gastroenterology
PROC: 0DJ08ZZ Inspection of Upper Intestinal Tract, Via Natural or Artificial Opening Endoscopic (ICD-10-PCS; CPT 45378; principal; 2024-06-23 14:30)
DX: Z12.11 Encounter for screening for malignant neoplasm of colon (principal); K63.5 Polyp of colon; K62.1 Rectal polyp; K21.9 Gastro-esophageal reflux disease without esophagitis; F17.210 Nicotine dependence, cigarettes, uncomplicated; E66.9 Obesity, unspecified; Z68.32 Body mass index [BMI] 32.0-32.9, adult
CPT/HCPCS: 45385; 43239; 88305; J2003; J2704; J7120

== ENCOUNTER 2024-09-08 11:15 | Outpatient (CLI) | payer OTHER, SELFPAY ==
--- NOTE | ~2024-09-08 | XR_ITS ---
EXAM/PROCEDURE: XR abdomen/kub 1V - 09/08/2024 11:30 CDT HISTORY: 33 years old Female with Z87.442 - Personal history of urinary calculi VS UTI COMPARISON: None available. TECHNIQUE: AP view(s) of the abdomen. FINDINGS: The bowel gas pattern is normal. There is no evidence for obstruction. No free intraperitoneal air is identified on this supine radiograph. The visualized soft tissue shadows are unremarkable. No gross bony abnormalities are seen. Visualized portions of lung bases are clear. IMPRESSION: No acute process. Reviewed, dictated and finalized at location A. IMPRESSION: No acute process.
--- OUTSIDE RECORDS SUMMARY | 2024-09-08 11:27 | XMS_ITS | Clinical Summary ---
Author Organization [facility] Address [address] [place] [address] Care Team Providers Care Disposition Clerk Name Role Phone Bradford Philippe MD Primary Care Provider [phone] Allergies No known active allergies Medications VIT-FE [...] 1:46 PM CDT Height 165.1 cm (5' 5) 09/28/2020 1:46 PM CDT Body Mass Index 36.61 09/28/2020 1:46 PM CDT Plan of Treatment Health Maintenance Due Date Last Done Comments Cervical Cancer Screening Pap Smear (Age 30 to 64) Every 3 Years 1989 Annual Physical 1992 Hepatitis C 10/23/2007 Hepatitis B Vaccines (1 of 3 - 19+ 3-dose series) 2008 HPV Vaccines (1 - 3-dose SCDM series) 2016 Cervical Cancer Screening Pap with HPV Testing (Age 30 to 64) Every 5 Years 10/23/2019 Cervical Cancer Screening with HPV 10/23/2019 COVID-19 Vaccine ( - 2023-25 season) 2023 DTaP, Tdap and Td Vaccines (2 - Td or Tdap) 01/26/2030 01/27/2020, 02/03/1991, 05/27/1990, Additional history exists Meningococcal B Vaccine Aged Out No l [...] patient's age to complete this topic Insurance [place] Care Teams Disposition Clerk Relationship Specialty Start Date End Date Bradford Philippe MD [address] [place] [address] PCP - General FAMILY PRACTICE 09/28/20
== END 2024-09-08 11:16 | disposition home or self-care (01) ==
PROVIDERS: PCP Family Medicine; Visit Provider Physician Assistant Medical
DX: R10.9 Unspecified abdominal pain (principal); Z87.442 Personal history of urinary calculi
CPT/HCPCS: 74018